=== PATIENT | female | born 1975 | race Caucasian/White ===

== ENCOUNTER 2020-01-08 08:44 | Inpatient (IN) | payer BC, SELFPAY ==
[2020-01-08] VITALS (7 sets, daily range): BP systolic 108–134; BP diastolic 72–88; PULSE 88–103; RESP 18–22; TEMP 36.6–36.9; O2SAT 99–100; BMI 30.8
--- NOTE | ~2020-01-08 | XR_ITS ---
EXAMINATION: XR chest 1V portable INDICATION: Shortness of breath and chest pain TECHNIQUE: Portable AP chest at 1012 hours COMPARISON: None available FINDINGS: There are airspace opacities of the lower lung zones. No pleural effusion or pneumothorax i s identified. The cardiomediastinal silhouette is normal. IMPRESSION: 1. Airspace opacities of the lower lung zones, consistent with pneumonia versus atelectasis. Reviewed, dictated and finalized at location A.
--- NOTE | ~2020-01-08 | US_ITS ---
EXAMINATION: US right upper quadrant DATE: 01/08/2020 13:08 INDICATION: Nausea and vomiting TECHNIQUE: Multiple grayscale and Doppler ultrasound images of the abdomen were obtained. COMPARISON: None FINDINGS: The pancreatic head and body are normal in appearance. The pancreatic tail is not visualized. Visual ized proximal to mid inferior vena cava is normal. Liver has normal echogenicity and contour, with a smooth surface. No liver lesion identified. No intrahepatic biliary duct dilation suspected. Portal v enous flow was seen in the hepatopetal, normal direction and has normal Doppler waveform. The gallbla dder is normal in appearance. There is no cholelithiasis. The common bile duct measures 4 mm, which is normal. Sonographic Fishman sign was reported as negative by the nursing agency manager.Sized portion of the r ight kidney demonstrates normal echogenicity and contour with no hydronephrosis. IMPRESSION: 1. Normal right upper quadrant ultrasound. Reviewed, dictated and finalized at location A.
[2020-01-08 09:03] LABS: Glucose Point of Care > 500 (65-105)
--- NOTE | 2020-01-08 09:09 | ECG_ITS ---
Measurements Intervals [place] Rate: 98 P: 42 ND: 111 QRS: 76 QRSD: 90 T: 48 QT: 365 QTc: 468 Interpretive Statements SINUS RHYTHM WITH SHORT ND INTERVAL BORDERLINE ECG Electronically Signed On 01-08-2020 9:12:06 CDT by Júnior Souza D.O.
[2020-01-08] MEDS: SODIUM CHLORIDE 0.9% IV 1,000 ML 999 ML IV CONT ×3 (09:12→14:09)
[2020-01-08 09:24] LABS: Basophils Absolute Auto 0.1 K/mm3 (0.0-0.1); Basophils Percent Auto 0.4 % (0.2-1.2); Eosinophils Percent Auto 0.1 % (0-4.4); Hematocrit 47.8 % (37.0-47.0); Hemoglobin 15.4 g/dL (12.0-15.0); Immature Granulocyte Absolute 0.36 K/mm3 (0.00-0.031); Immature Granulocyte Percent A 1.4 % (0-0.5); Lymphocytes Absolute Auto 0.91 K/mm3 (0.9-3.2); Lymphocytes Percent Auto 3.6 % (18.3-44.2); Mean Corpuscular HGB Conc 32.2 g/dl (32-36); Mean Corpuscular Hemoglobin 33.5 pg (26-34); Mean Corpuscular Volume 103.9 fl (80-100); Mean Platelet Volume 10.5 fl (7.4-10.4); Monocytes Absolute Auto 1.5 K/mm3 (0.1-0.6); Monocytes Percent Auto 5.7 % (2.6-8.5); Neutrophils Absolute Auto 22.7 K/mm3 (1.3-6.7); Neutrophils Percent Auto 88.8 % (45.5-73.1); Platelet Count Result 364 k/mm3 (150-375); White Blood Count 25.5 K/mm3 (4.5-10.0)
[2020-01-08 09:43] LABS: Albumin Level 5.4 g/dL (3.5-5.1); Alkaline Phosphatase 103 U/L (38-126); Anion Gap 35.4 mmol/L (7-16); Aspartate Amino Transferase 153 U/L (14-36); Bilirubin,Total 1.3 mg/dL (0.2-1.3); Blood Urea Nitrogen 27 mg/dL (7-17); Calcium 9.4 mg/dL (8.4-10.2); Carbon Dioxide 8 mmol/L (22-30); Chloride 94 mmol/L (98-107); Estimated CRCL calculation 47 ml/min; Estimated Glomerular Filt Rate 33; Magnesium 2.4 mg/dL (1.6-2.3); Potassium 5.4 mmol/L (3.4-5.0); Sodium 132 mmol/L (137-145)
[2020-01-08 09:50] LABS: Troponin I < 0.012 ng/mL (0.000-0.034)
[2020-01-08 09:51] LABS: Alveolar/Arterial O2 Gradient 3.2 mmHg; Base Excess ABG -18.9 mEq/l (+/-2.0); Carboxyhemoglobin 0.7 % THb (0-2.0); Fractional Inspired Oxygen 21 %; HCO3 ABG 7.5 mEq/l (22.0-26.0); Methemoglobin ABG 0.2 %THb (0-1.5); Oxygen Content ABG 20.9 %vol (16.0-22.0); Oxygen Saturation ABG 97.5 % (95.0-100.0); Oxyhemoglobin 97.2 % THb (90.0-100.0); PO2 ABG 121.3 mmHg (80.0-100.0); PO2 FiO2 Ratio Arterial Blood 5.78 %; Reduced Hemoglobin 1.9 %THb (0-5.0); Total Hemoglobin 15.2 g/dL (12.0-18.0)
[2020-01-08 09:54] LABS: Device ROOM AIR; PCO2 ABG 21.1 mmHg (35.0-45.0); Site Drawn LEFT BRACHIAL
[2020-01-08] MEDS: ONDANSETRON INJ 4 MG/2 ML VIAL IV PUSH ×2 (09:56→22:22)
[2020-01-08] MEDS: MORPHINE SULFATE 4 MG/ML INJ IV PUSH (09:56)
[2020-01-08 10:03] LABS: Glucose 653 mg/dL (65-105)
--- NOTE | 2020-01-08 10:05 | ED.NAVMDI ---
HPI - Nausea/Vomiting/Diarrhea General Chief complaint: Nausea/Vomiting/Diarrhea Stated complaint: DIABETIC, N/V ACCUCK 600'S Time Seen by Provider: 01/08/20 09:02 History of Present Illness HPI Narrative: Patient is a 44-year-old female who presents ER with nausea and vomiting. Patient reports yesterday she woke up and began having some mid back pain and then as the day progressed she began to develop some central chest pain and additionally nausea and vomiting. Vomiting is continued all night. She reports she feels like she hallucinates. She reports she is seen naked people riding horses but these may have actually been dreams. Spouse does not think she was hallucinating. She reports her daughters have been at her ex-'s house who may have been exposed to COVID and she does not know his test results. Additionally she had a daughter who is exposed to COVID at a place of employment and tested negative subsequently. Patient has been social distancing well until 2 days ago when she went to a barbecue. She has had no sinus congestion/sore throat/productive cough. Patient mildly anxious. Related Data Home Medications Medication Instructions Recorded Confirmed alprazolam HS 01/08/20 citalopram mg HS 01/08/20 insulin lispro See Rx Instructions .ROUTE .COMPLEX 01/08/20 01/08/20 Allergies Allergy/AdvReac Type Severity Reaction Status Date / Time amoxicillin Allergy Unknown Unknown Verified 01/08/20 09:02 Penicillins Allergy Unknown Verified 01/08/20 09:03 codeine AdvReac Itching Verified 01/08/20 09:02 Review of Systems Review of Systems: All systems reviewed & are unremarkable except as noted in HPI and below Constitutional: Constitutional: Denies chills, Denies fever(s) and Denies weakness ENT: Denies nasal congestion and Denies sore throat Cardiovascular: Cardiovascular: Reports chest pain, Denies rapid heart rate and Denies radiating jaw, neck or arm pain Respiratory: Respiratory: Denies cough, Reports dyspnea and Denies wheezing Gastrointestinal: Gastrointestinal: Denies abdominal pain, Denies diarrhea, Reports nausea and Reports vomiting Genitourinary: Genitourinary: Denies nocturia and Denies dysuria [facility] Past Medical History Medical History (Updated 01/08/20 @ 15:26 by Romi Morales NP) Anxiety Ovarian cyst during Type 1 diabetes Surgical History Surgical History (Updated 01/08/20 @ 15:26 by Romi Morales NP) History of section, classical x3 History of oophorectomy removal of cyst during . Social History Social History (Updated 01/08/20 @ 11:51 by Quincy Oliver MD) Smoking status: Never smoker Alcohol intake: current Drinks per week: 5 Substance use: never Substance use type: does not use Gender identity (if verbalized by the patient): Female Sexual Orientation (if Verbalized by the Patient): Straight or Heterosexual Spiritual care concerns: No Comments No family history of coronary disease. Exam Narrative: Exam Narrative: GENERAL: Anxious-appearing, well-nourished, and in no acute distress. HEAD: Normocephalic, atraumatic. ENT: Mucous membranes moist. CHEST: Clear to auscultation. No respiratory distress. HEART: Tachycardic and regular. Normal peripheral pulses. ABDOMEN: Soft, nontender, nondistended. EXTREMITIES: Normal range of motion. No edema. SKIN: Warm, dry, no rash. NEURO: N Alert and oriented x3. PSYCH: Normal mood and affect. Course Course Emergency Course: Discussed case with hospitalist as well as third miller. Admit to the ICU on insulin drip. Antibiotics ordered for possible pneumonia. Patient had a COVID swab performed here today. Troponin negative. EKG with some mild diffuse ST elevation that could represent early repolarization abnormality or pericarditis which is felt less likely. Creatinine elevated consistent with CYRIL from dehydration. Abdomen soft nontender, but given back pain and retching we
[2020-01-08 10:09] LABS: Alanine Aminotransferase 158 U/L (4-35)
[2020-01-08 11:06] LABS: Glucose Point of Care > 500 (65-105)
[2020-01-08 11:14] LABS: Add Urine Microscopic? YES; Appearance Urine Clear (Clear); Bacteria Urine Trace /hpf; Bilirubin Urine Negative (Negative); Blood Urine 1+ (Negative); Color Urine Yellow (Yellow); Glucose Urine UA 3+ mg/dL (Negative); Hyaline Casts Urine 15-19 /lpf; Ketones Urine 2+ mg/dL (Negative); Leukocyte Esterase Ur Negative LEU/UL (Negative); Mucus Urine Rare /lpf; Nitrate Urine Negative (Negative); Protein Urine 1+ mg/dL (Negative); RBC Urine 0-2 /hpf (0-2); Specific Grav Ur 1.026 (1.001-1.035); Squamous Epithelial Cell Urine Occasional /hpf (Few); Urobilinogen Urine Negative mg/dL (<2.0); WBC Urine 0-3 /hpf
[2020-01-08 11:48] LABS: Glucose Point of Care > 500 (65-105)
[2020-01-08] MEDS: INSULIN HUMAN REGULAR (*BKC) 100 UNITS in SODIUM CHLORIDE 0.9% IV 99 ML 8.8 UNITS IV CONT (12:13)
[2020-01-08 13:38] LABS: Glucose Point of Care 476 (65-105)
--- NOTE | 2020-01-08 14:02 | WPDCNINT ---
Assessment and Plan Assessment and plan (1) DKA, type 1: Qualifiers: Diabetes mellitus complication detail: without coma Qualified Code(s): E10.10 - Type 1 diabetes mellitus with ketoacidosis without coma Code(s): E10.10 - Type 1 diabetes mellitus with ketoacidosis without coma Status: Acute Assessment and Plan: patient presented a nausea, vomiting, chest pain, shortness of breath, elevated blood sugars - recently changed her insulin pump site on 01/06/2020 - patient with elevated anion gap metabolic acidosis, hyper glycemia, hyperkalemia - was given 2 L IV fluid bolus in the ED, started on insulin drip DKA protocol. - Will give additional 1 L IV fluid bolus in the ICU. - will check hemoglobin A1c - will transition to long-acting insulin and sliding scale insulin once anion gap closes (2) Elevated LFTs: Code(s): R79.89 - Other specified abnormal findings of blood chemistry Status: Acute Assessment and Plan: elevated LFTs, could be related to dehydration, will continue to monitor - will obtain hepatitis panel - RUQ ultrasound done on 01/08/2020 showed normal right upper quadrant ultrasound (3) Hyperkalemia: Code(s): E87.5 - Hyperkalemia Status: Acute Assessment and Plan: hyperkalemia likely related to metabolic acidosis - repeat BMP shows potassium of 4.2 ( 5.4 on admission) - continue to monitor (4) Chest pain: Qualifiers: Chest pain type: unspecified Qualified Code(s): R07.9 - Chest pain, unspecified Code(s): R07.9 - Chest pain, unspecified Status: Acute Assessment and Plan: patient presented with chest pain and shortness of breath likely related to DKA - 1st set of troponins are negative, will trend troponin levels (5) Suspected 2019 novel coronavirus infection: Code(s): Z20.828 - Contact with and (suspected) exposure to other viral communicable diseases Status: Acute Assessment and Plan: patient's daughter works at [employer] where a number of employees had tested positive, Payne her daughter was tested negative - patient's ex- and his also had some symptoms, her 3 children where at his place, he was tested for code with positive but refuses to inform her of the results - she was also at a [employer] get together on 01/06/2020 where there was no social distancing she is unaware of any COVID-19 positive cases at the [facility]. - SARS-CoV-2 PCR swab was obtained in the ER and pending (6) Leukocytosis: Qualifiers: Leukocytosis type: unspecified Qualified Code(s): D72.829 - Elevated white blood cell count, unspecified Code(s): D72.829 - Elevated white blood cell count, unspecified Status: Acute Assessment and Plan: leukocytosis with WBC count of 25.5, could be related to DKA/reactive - with no fevers - will continue to monitor (7) CYRIL (acute kidney injury): Code(s): N17.9 - Acute kidney failure, unspecified Status: Acute Assessment and Plan: acute kidney injury likely related to DKA, hyperglycemia, glycosuria, hypovolemia, decreased oral intake/dehydration - creatinine on admission was 1.70, after 2 L of normal saline and repeat BMP shows creatinine of 0.9 - continue monitor urine output, renal function electrolytes (8) DVT prophylaxis: Code(s): Z29.9 - Encounter for prophylactic measures, unspecified Status: Acute Assessment and Plan: SCDs Additional Plan discussed with patient updated with her condition and explained to the plan of care. I answered all her questions code status: Full code critical care time spent: 41 minutes Due to a high probability of clinically significant, life threatening deterioration, the patient required my highest level of preparedness to intervene emergently and I personally spent this critical care time directly and personally managing the patient. This critical
[2020-01-08 14:06] LABS: Anion Gap 21.2 mmol/L (7-16); Blood Urea Nitrogen 24 mg/dL (7-17); Calcium 7.3 mg/dL (8.4-10.2); Carbon Dioxide 13 mmol/L (22-30); Chloride 104 mmol/L (98-107); Estimated CRCL calculation 85 ml/min; Estimated Glomerular Filt Rate > 60; Glucose 391 mg/dL (65-105); Potassium 4.2 mmol/L (3.4-5.0); Sodium 134 mmol/L (137-145)
[2020-01-08 14:14] LABS: Glucose Point of Care 440 (65-105)
--- NOTE | 2020-01-08 14:50 | PC.NURSE ---
No family health history that patient is aware of. States both parents are healthy.
[2020-01-08 14:57] LABS: Troponin I < 0.012 ng/mL (0.000-0.034)
--- NOTE | 2020-01-08 15:11 | PM.IMHP ---
H&P: HPI History of Present Illness Date/Time: 01/08/20 15:11 Chief complaint: dka/pneumonia/covid pui Narrative: Jayleen Box is a 44 year old female Who has a a history of diabetes type 1. She typically wears an insulin pump with Humalog. The patient has been a type 1 diabetic for 18 years now. 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 the patient stated that her blood sugars are typically 80s to 100 she has a basal rate and also boluses. She noticed yesterday her blood sugars were elevated andshe tried to inject herself with Humalog subcu. She said she has had nausea vomiting all day yesterday. She felt hot and diaphoretic she had a dry mouth. She felt like she had acid reflux all day yesterday. She had polydipsia and polyuria. The patient has a daughter that works at [employer] and had a closed [employer] down because of the COVID outbreak there. However she tells me that her daughter tested negative. Also recently the father of her children had exposure to COVID would would not tell her the results of the COVID testing. Therefore the patient is unsure of her exposure to COVID. She has not had any sore throat or cough. She has a history of anxiety. She had changed her pump on 01/06/2020 and felt that the pump was working accurately but gave herself subcu junctions to try to get the blood sugars down. Her white count was noted to be 25.5. H&H is 15.4 and 47.8. The patient had the polydipsia and polyuria plus she had been vomiting most likely became dehydrated. Arterial blood gases revealed that the patient had metabolic acidosis. PH is 7.170 CO2 was 21.10 to is 121.3. Her blood sugar was read as 653 and then 391. Her beta hydroxybutyrate acetoacetate was noted to be 11.0. She had 1+ protein and 3+ glucose 2+ ketones in her urine. Her liver enzymes were elevated AST 153 ALT is 158. Magnesium was high at 2.4 she had a normal ultrasound of her upper abdomen. Chest x-ray was read as airspace opacities of the lower lung zones consistent with pneumonia versus atelectasis. Patient was swabbed for covid 19 and started on azithromycin And Rocephin. Anion gap was 17 using [employer]. patient is being admitted for DKA and rule out COVID I have spent approximately 1 hour of intensive care time with the patient. The patient was seen by the safety engineer pressure vessels. She was started on the DKA protocol. The date of service is 01/08/2020 Review of Systems Review of Systems: All systems reviewed & are unremarkable except as noted in HPI and below Constitutional: Constitutional: Reports as per HPI and Reports no additional constitutional complaints Eyes: Eyes: Reports as per HPI and Reports no additional eye complaints ENT: Reports system reviewed and no additional complaints, except as documented and Reports Normal hearing present Cardiovascular: Cardiovascular: Reports no additional cardiovascular complaints Respiratory: Respiratory: Reports no additional respiratory complaints and Reports no additional respiratory complaints Gastrointestinal: Gastrointestinal: Reports as per HPI and Reports no additional gastrointestinal complaints Musculoskeletal: Musculoskeletal: Reports no additional musculoskeletal complaints Integumentary/Breasts: Skin/Breast: Reports system reviewed and no additional complaints, except as docu and Reports as per HPI Neurologic: Reports system reviewed and no additional complaints, except as documented, Reports as per HPI and Reports Normal hearing present Psychiatric: Psychiatric: Reports no additional psychiatric complaints and Reports as per HPI Endocrine: Endocrine: Reports no additional endocrine complaints Hematologic/Lymphatic: Hematologic/Lymphatic: Reports no additional hematologic/lymphatic complaints Allergic/Immunologic: Allergic/Immunologic: Reports no additional allergic/immunologi
[2020-01-08] MEDS: SODIUM CHLORIDE 0.9% IV 1,000 ML 150 ML IV CONT (15:12)
[2020-01-08 15:26] LABS: Glucose Point of Care 366 (65-105)
[2020-01-08 15:33] LABS: Hemoglobin A1C 7.4 % (<5.7)
--- NOTE | 2020-01-08 15:43 | ADMGEN ---
This patient, Jayleen Box, was admitted to Intensive Care Unit-1. Patient oriented to hospital policies and general routines including ID bracelet, bed and alarms, visiting hours, pain management, procedures, bathroom and other care routines, personal items, smoking policy, room service/diet, and visiting hours. Valuables list has been completed. Information on how to activate the Rapid Response Team has been discussed. Patient is encouraged to report perceived risks to care and to ask questions if they do not understand what they are told or what they should do.
[2020-01-08 16:11] LABS: Glucose Point of Care 268 (65-105)
[2020-01-08 16:22] LABS: Hepatitis B Surface Antigen Negative (Negative)
[2020-01-08 16:28] LABS: HAV RESULT Negative (Negative); Hepatitis B Core IgM Result Negative (Negative)
[2020-01-08 16:39] LABS: Hepatitis C Virus Antibody Negative (Negative)
[2020-01-08 17:17] LABS: Glucose Point of Care 226 (65-105)
[2020-01-08] MEDS: KCL 20 MEQ/D5/0.45% SOD CHL 1,000 ML 150 ML IV CONT (18:24)
[2020-01-08 18:32] LABS: Glucose Point of Care 154 (65-105)
[2020-01-08 18:58] LABS: Anion Gap 4.2 mmol/L (7-16); Blood Urea Nitrogen 14 mg/dL (7-17); Calcium 4.3 mg/dL (8.4-10.2); Carbon Dioxide 15 mmol/L (22-30); Chloride 121 mmol/L (98-107); Estimated CRCL calculation 173 ml/min; Estimated Glomerular Filt Rate > 60; Glucose 80 mg/dL (65-105); Potassium 2.2 mmol/L (3.4-5.0); Sodium 138 mmol/L (137-145)
[2020-01-08 19:12] LABS: Glucose Point of Care 115 (65-105)
[2020-01-08] MEDS: KCL 20 MEQ/SW 100 ML 100 ML 50 MEQ IVPB (19:51)
[2020-01-08] MEDS: INSULIN GLARGINE (*BKC) 100 UNITS/ML 40 UNITS SUB-Q (19:52)
[2020-01-08] MEDS: BENZOCAINE/MENTHOL (*BKC) 18 EA LOZENGE 1 LOZENGE PO (19:57)
[2020-01-08] MEDS: ALPRAZolam 0.25 MG TABLET PO (23:04)
[2020-01-08] MEDS: CITALOPRAM HYDROBROMIDE 20 MG TABLET 40 MG PO (23:04)
[2020-01-08 23:23] LABS: Anion Gap 13.8 mmol/L (7-16); Blood Urea Nitrogen 21 mg/dL (7-17); Calcium 7.8 mg/dL (8.4-10.2); Carbon Dioxide 21 mmol/L (22-30); Chloride 101 mmol/L (98-107); Estimated CRCL calculation 105 ml/min; Estimated Glomerular Filt Rate > 60; Glucose 325 mg/dL (65-105); Potassium 4.8 mmol/L (3.4-5.0); Sodium 131 mmol/L (137-145)
[2020-01-09] VITALS (11 sets, daily range): BP systolic 133–165; BP diastolic 72–86; PULSE 75–87; RESP 16–20; TEMP 36.7–37.3; O2SAT 97–100
[2020-01-09] MEDS: INSULIN ASPART (*BKC) 100 UNITS/ML SUB-Q ×5 (00:17→17:07)
--- NOTE | 2020-01-09 02:00 | PC.NURSE ---
COVID swab never received from ER to lab. Unclear to reasons. supervisor engine assembly alerted and re-swabbed STAT at this time.
[2020-01-09 05:06] LABS: Basophils Percent Auto 0.2 % (0.2-1.2); Eosinophils Percent Auto 0.1 % (0-4.4); Hematocrit 37.5 % (37.0-47.0); Hemoglobin 12.7 g/dL (12.0-15.0); Immature Granulocyte Absolute 0.07 K/mm3 (0.00-0.031); Immature Granulocyte Percent A 0.4 % (0-0.5); Lymphocytes Absolute Auto 1.66 K/mm3 (0.9-3.2); Lymphocytes Percent Auto 9.4 % (18.3-44.2); Mean Corpuscular HGB Conc 33.9 g/dl (32-36); Mean Corpuscular Hemoglobin 33.2 pg (26-34); Mean Corpuscular Volume 98.2 fl (80-100); Mean Platelet Volume 10.3 fl (7.4-10.4); Monocytes Absolute Auto 1.3 K/mm3 (0.1-0.6); Monocytes Percent Auto 7.6 % (2.6-8.5); Neutrophils Absolute Auto 14.6 K/mm3 (1.3-6.7); Neutrophils Percent Auto 82.3 % (45.5-73.1); Platelet Count Result 259 k/mm3 (150-375); Red Blood Count 3.82 M/mm3 (4.2-5.4); Red Cell Distribution Width 11.9 % (11.5-14.5); White Blood Count 17.7 K/mm3 (4.5-10.0)
[2020-01-09 05:59] LABS: Anion Gap 15.3 mmol/L (7-16); Blood Urea Nitrogen 18 mg/dL (7-17); CRP 3.3 mg/dL (<1.0); Calcium 8.2 mg/dL (8.4-10.2); Carbon Dioxide 20 mmol/L (22-30); Chloride 101 mmol/L (98-107); Estimated CRCL calculation 106 ml/min; Estimated Glomerular Filt Rate > 60; Glucose 303 mg/dL (65-105); Lipase 88 U/L (23-300); Magnesium 2.3 mg/dL (1.6-2.3); Phosphorus 1.5 mg/dL (2.5-4.5); Potassium 4.3 mmol/L (3.4-5.0); Sodium 132 mmol/L (137-145)
[2020-01-09 07:45] LABS: Alanine Aminotransferase 92 U/L (4-35); Albumin Level 3.6 g/dL (3.5-5.1); Alkaline Phosphatase 70 U/L (38-126); Aspartate Amino Transferase 53 U/L (14-36); Bilirubin,Total 0.8 mg/dL (0.2-1.3)
[2020-01-09 08:11] LABS: Glucose Point of Care 256 (65-105)
[2020-01-09 12:25] LABS: Glucose Point of Care 285 (65-105)
--- NOTE | 2020-01-09 13:12 | WPDINTPN ---
Progress Note: A&P Assessment and Plan (1) DKA, type 1: Qualifiers: Diabetes mellitus complication detail: without coma Qualified Code(s): E10.10 - Type 1 diabetes mellitus with ketoacidosis without coma Code(s): E10.10 - Type 1 diabetes mellitus with ketoacidosis without coma Status: Acute Assessment and Plan: patient presented a nausea, vomiting, chest pain, shortness of breath, elevated blood sugars - recently changed her insulin pump site on 01/06/2020 - patient with elevated anion gap metabolic acidosis, hyper glycemia, hyperkalemia - patient received adequate IV fluids, on insulin drip for DKA but that has been transitioned to long-acting insulin Lantus and sliding scale insulin with - hemoglobin A1C is 7.4 this admission - continue to monitor blood sugars closely, patient started on diabetic diet (2) Elevated LFTs: Code(s): R79.89 - Other specified abnormal findings of blood chemistry Status: Acute Assessment and Plan: elevated LFTs on admission, could be related to dehydration, will continue to monitor - LFTs trending down this morning - hepatitis panel is negative - RUQ ultrasound done on 01/08/2020 showed normal right upper quadrant ultrasound (3) Hyperkalemia: Code(s): E87.5 - Hyperkalemia Status: Acute Assessment and Plan: RESOLVED: hyperkalemia likely related to metabolic acidosis - repeat BMP shows potassium of 4.2 ( 5.4 on admission) - continue to monitor (4) Chest pain: Qualifiers: Chest pain type: unspecified Qualified Code(s): R07.9 - Chest pain, unspecified Code(s): R07.9 - Chest pain, unspecified Status: Acute Assessment and Plan: RESOLVED: patient presented with chest pain and shortness of breath likely related to DKA - troponins negative x2 - chest pain has resolved this morning (5) Suspected 2019 novel coronavirus infection: Code(s): Z20.828 - Contact with and (suspected) exposure to other viral communicable diseases Status: Acute Assessment and Plan: patient's daughter works at [employer] where a number of employees had tested positive, Payne her daughter was tested negative - patient's ex- and his also had some symptoms, her 3 children where at his place, he was tested for code with positive but refuses to inform her of the results - she was also at a [employer] together on 01/06/2020 where there was no social distancing she is unaware of any COVID-19 positive cases at the [facility]. - SARS-CoV-2 PCR swab was obtained in the ER and pending (6) Leukocytosis: Qualifiers: Leukocytosis type: unspecified Qualified Code(s): D72.829 - Elevated white blood cell count, unspecified Code(s): D72.829 - Elevated white blood cell count, unspecified Status: Acute Assessment and Plan: leukocytosis with WBC count of 25.5, could be related to DKA/reactive - with no fevers - leukocytosis trending down, will continue to monitor (7) CYRIL (acute kidney injury): Code(s): N17.9 - Acute kidney failure, unspecified Status: Acute Assessment and Plan: acute kidney injury likely related to DKA, hyperglycemia, glycosuria, hypovolemia, decreased oral intake/dehydration - creatinine on admission was 1.70, patient received adequate fluids in the ED as well as in the ICU - creatinine this morning is 0.4 - continue monitor urine output, renal function electrolytes (8) DVT prophylaxis: Code(s): Z29.9 - Encounter for prophylactic measures, unspecified Status: Acute Assessment and Plan: SCDs Additional Plan discussed with patient updated with her condition and explained to the plan of care. I answered all her questions code status: Full code critical care time spent: 33 minutes Due to a high probability of clinically significant, life threatening deterioration, the patient required my highe
[2020-01-09 15:07] LABS: SARS-CoV-2 RNA PCR Negative
[2020-01-09 15:39] LABS: SARS-CoV-2 RNA PCR Negative
[2020-01-09 17:11] LABS: Glucose Point of Care 280 (65-105)
--- NOTE | 2020-01-09 18:00 | PC.NURSE ---
Transfer from ICU to room 320. Pt arrived to floor by wheel chair. A/Ox3
--- NOTE | 2020-01-09 18:08 | PC.NURSE ---
This patient, Jayleen Box, was transferred to [facility] on 01/09/20 at 1755. Personal belongings sent with patient. Report given to [Delio DONAHUE]. Appropriate documentation sent with patient.
[2020-01-09] MEDS: CITALOPRAM HYDROBROMIDE 20 MG TABLET 40 MG PO (20:38)
[2020-01-09] MEDS: ALPRAZolam 0.25 MG TABLET PO (20:38)
[2020-01-09 21:21] LABS: Glucose Point of Care 226 (65-105)
[2020-01-09] MEDS: INSULIN GLARGINE (*BKC) 100 UNITS/ML 10 UNITS SUB-Q (23:23)
[2020-01-10 05:12] LABS: Glucose Point of Care 308 (65-105)
[2020-01-10] MEDS: INSULIN ASPART (*BKC) 100 UNITS/ML 6 UNITS SUB-Q (05:57)
[2020-01-10 06:00] VITALS: BP 141/84; PULSE 66; RESP 16; TEMP 36.7; O2SAT 98
[2020-01-10 06:04] LABS: Basophils Percent Auto 0.4 % (0.2-1.2); Eosinophils Percent Auto 0.2 % (0-4.4); Hemoglobin 13.3 g/dL (12.0-15.0); Immature Granulocyte Absolute 0.02 K/mm3 (0.00-0.031); Immature Granulocyte Percent A 0.2 % (0-0.5); Lymphocytes Absolute Auto 1.91 K/mm3 (0.9-3.2); Lymphocytes Percent Auto 23.1 % (18.3-44.2); Mean Corpuscular HGB Conc 34.1 g/dl (32-36); Mean Corpuscular Hemoglobin 33.4 pg (26-34); Mean Platelet Volume 10.2 fl (7.4-10.4); Monocytes Absolute Auto 0.7 K/mm3 (0.1-0.6); Neutrophils Absolute Auto 5.6 K/mm3 (1.3-6.7); Neutrophils Percent Auto 68.1 % (45.5-73.1); Platelet Count Result 227 k/mm3 (150-375); Red Blood Count 3.98 M/mm3 (4.2-5.4); Red Cell Distribution Width 11.9 % (11.5-14.5); White Blood Count 8.3 K/mm3 (4.5-10.0)
[2020-01-10 06:48] LABS: Alanine Aminotransferase 84 U/L (4-35); Albumin Level 3.8 g/dL (3.5-5.1); Alkaline Phosphatase 58 U/L (38-126); Anion Gap 13.8 mmol/L (7-16); Aspartate Amino Transferase 70 U/L (14-36); Bilirubin,Total 1.2 mg/dL (0.2-1.3); Blood Urea Nitrogen 13 mg/dL (7-17); Calcium 8.3 mg/dL (8.4-10.2); Carbon Dioxide 27 mmol/L (22-30); Chloride 93 mmol/L (98-107); Estimated CRCL calculation 122 ml/min; Estimated Glomerular Filt Rate > 60; Glucose 290 mg/dL (65-105); Magnesium 2.1 mg/dL (1.6-2.3); Potassium 3.8 mmol/L (3.4-5.0); Sodium 130 mmol/L (137-145)
[2020-01-10 08:00] VITALS: PULSE 66; RESP 16; O2SAT 98
[2020-01-10] MEDS: CALCIUM CARBONATE (TUMS) 500 MG (200 MG ELEMENTAL) PO (08:26)
[2020-01-10] MEDS: FAMOTIDINE 20 MG/2 ML VIAL IV PUSH (08:27)
[2020-01-10 08:41] LABS: Glucose Point of Care 237 (65-105)
[2020-01-10] MEDS: POTASSIUM CHLORIDE 20 MEQ TABLET 40 MEQ PO (10:49)
--- NOTE | 2020-01-10 13:38 | PM.DS ---
DS: Admitting Diagnosis Admitting Diagnosis Admitting Diagnosis: Type 1 diabetes mellitus with ketoacidosis without coma DS: Discharge Diagnosis Discharge Diagnosis (1) DKA, type 1: Qualifiers: Diabetes mellitus complication detail: without coma Qualified Code(s): E10.10 - Type 1 diabetes mellitus with ketoacidosis without coma Code(s): E10.10 - Type 1 diabetes mellitus with ketoacidosis without coma Status: Acute Assessment and Plan: the patient took her insulin pump off and sent home with her . She is type 1 diabetic for at least the last 18 years. She does see an cake washer. Will waiting for the A1c to be resulted. Patient is on the DKA protocol it looks like her anion gap was between 17 and 18. Her the patient attempted to give herself NovoLog which did not correct blood sugars at home. She was given 2 L of IV fluid bolus in the emergency room and is on insulin drip per DKA protocol at this time. She is admitted to the ICU in the bottling line operator has seen and the patient. We will give the patient some Lantus when she is off of the insulin pump Foner anion gap closes. And will do sliding scale insulin. Her ABG showed metabolic acidosis. Cluster B have is elevated she has anion gap. Consult dietary educator. (2) CYRIL (acute kidney injury): Code(s): N17.9 - Acute kidney failure, unspecified Status: Acute Assessment and Plan: Patient stated she has not had any prior kidney problems with her diabetes. Most likely is due to the dehydration. Her H&H was elevated and her creatinine 1.7. Will continue to hydrate the patient recheck her BMPs every 4 hours with the DKA protocol. (3) Suspected 2019 novel coronavirus infection: Code(s): Z20.828 - Contact with and (suspected) exposure to other viral communicable diseases Status: Acute Assessment and Plan: She may have gotten exposure to COVID. But she is not having any symptoms at this time. She is in isolation. At she was started on a Zithromax and Rocephin for possibility of pneumonia. (4) Anxiety: Code(s): F41.9 - Anxiety disorder, unspecified Status: Chronic Assessment and Plan: Continue with Her home medications when she is no longer NPO. (5) Leukocytosis: Qualifiers: Leukocytosis type: unspecified Qualified Code(s): D72.829 - Elevated white blood cell count, unspecified Code(s): D72.829 - Elevated white blood cell count, unspecified Status: Acute Assessment and Plan: Could be stress reactive. Continue to monitor. (6) Hyperkalemia: Code(s): E87.5 - Hyperkalemia Status: Acute Assessment and Plan: Most likely due to the metabolic acidosis. DS: Summary Hospital Course Reason for hospitalization: Chief complaint: dka/pneumonia/covid pui Narrative: Jayleen Box is a 44 year old female Who has a a history of diabetes type 1. She typically wears an insulin pump with Humalog. The patient has been a type 1 diabetic for 18 years now. 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 the patient stated that her blood sugars are typically 80s to 100 she has a basal rate and also boluses. She noticed yesterday her blood sugars were elevated andshe tried to inject herself with Humalog subcu. She said she has had nausea vomiting all day yesterday. She felt hot and diaphoretic she had a dry mouth. She felt like she had acid reflux all day yesterday. She had polydipsia and polyuria. The patient has a daughter that works at [employer] and had a closed [employer] down because of the COVID outbreak there. However she tells me that her daughter tested negative. Also recently the father of her children had exposure to COVID would would not tell her the results of the COVID testing. Therefore the patient is unsure of
--- NOTE | 2020-01-10 13:45 | PC.NURSE ---
Was notified by MILADIS (Lakesha Lipscomb)that when she went to do the accucheck for 1200 the pt said she doesnt need it done.This was because she had already administered her own insulin. Her had brought her medications.Pt said she was told by the doctor she was being discharged today. I did confirm this with Dr. Hawkins.
[2020-01-10 14:00] VITALS: BP 151/86; PULSE 73; RESP 18; TEMP 36.3; O2SAT 98
== END 2020-01-10 14:49 | disposition home or self-care (01) | DRG 638 ==
LOC: ANHED 11:55 → ANHICU 23:27 → ANH3MEDSUR 01-10 10:10 → ANHICU 01-12 14:27
PROVIDERS: Internal Medicine; Nurse Practitioner; Admitting Provider Internal Medicine; Emergency Provider Emergency Medicine; Visit Provider Family Medicine
DX: E10.10 Type 1 diabetes mellitus with ketoacidosis without coma (principal); N17.9 Acute kidney failure, unspecified; Z20.828 Contact with and (suspected) exposure to other viral communicable diseases; F41.9 Anxiety disorder, unspecified; D72.829 Elevated white blood cell count, unspecified; E86.0 Dehydration; E87.5 Hyperkalemia; R79.89 Other specified abnormal findings of blood chemistry; Z79.4 Long term (current) use of insulin; Z96.41 Presence of insulin pump (external) (internal)
CPT/HCPCS: 36415; 36600; 71045; 76705; 80048; 80053; 80074; 80076; 81001; 81025; 82010; 82375; 82728; 82805; 82948; 83036; 83050; 83690; 83735; 84100; 84443; 84484; 85025; 86140; 87040; 87076; 87081; 87635; 87880; 93005; 96361; 96374; 96375; 99285; A9270; C9803; J0456; J0696; J1815; J2270; J2405; J3480; J7030; U0003

== ENCOUNTER → 2022-03-30 16:25 | Outpatient (CLI) | payer BC, SELFPAY ==
--- NOTE | ~2022-03-30 | MM_ITS ---
EXAMINATION: MM screening [facility] BI w garret HISTORY: Screening mammogram TECHNIQUE: Craniocaudal and mediolateral oblique 3-D tomosynthesis images were obtained and synthetic 2-D images were generated. CAD analysis was submitted and interpreted. COMPARISON: 11/24/2018, 07/31/2014 BREAST PARENCHYMAL COMPOSITION: The breasts are heterogeneously dense, which may obscure small masses . FINDINGS: RIGHT BREAST: An asymmetry is present in the middle third of the inner breast 8 cm from the nipple on the craniocaudal view. LEFT BREAST: No suspicious mass, calcification, or architectural distortion are identified to suggest malignancy. There has been no suspicious interval change. IMPRESSION: 1. Left breast asymmetry on the craniocaudal view. 2. Additional mammographic views and possible breast ultrasound are recommended. BI-RADS Category 0: Incomplete: Needs additional imaging evaluation. Reviewed, dictated and finalized at location A. IMPRESSION: 1. Left breast asymmetry on the craniocaudal view. 2. Additional mammographic views and possible breast ultrasound are recommended . BI-RADS Category 0: Incomplete: Needs additional imaging evaluation.
== END ==
PROVIDERS: PCP Nurse Practitioner Obstetrics & Gynecology; Visit Provider Nurse Practitioner Obstetrics & Gynecology
DX: Z12.31 Encounter for screening mammogram for malignant neoplasm of breast (principal); R92.8 Other abnormal and inconclusive findings on diagnostic imaging of breast
CPT/HCPCS: 77063; 77067

== ENCOUNTER → 2022-04-03 08:36 | Outpatient (CLI) | payer BC, SELFPAY ==
--- NOTE | ~2022-04-03 | MMUS_ITS ---
EXAMINATION: MM diagnostic qiana RT w garret, US breast RT limited HISTORY: Right breast asymmetry on screening mammogram TECHNIQUE: Additional 3-D tomosynthesis images of the right breast were performed and synthetic 2-D i mages were generated. CAD analysis was submitted and interpreted. High resolution limited right breas t ultrasound was performed. COMPARISON: 03/30/2022, 12/03/2017, 07/31/2014, 05/17/2013 FINDINGS: MAMMOGRAPHIC FINDINGS: There is a return to baseline fibroglandular appearance with spot compression of the right breast in the area questioned on screening mammogram. ULTRASOUND: There is a 6 mm x 3 mm oval, circumscribed, parallel, hypoechoic mass at the 4:00 location 4 cm from the nipple with no posterior features or internal vascularity. IMPRESSION: 1. Probably benign right breast mass. 2. Recommend 6 month follow-up right diagnostic mammogram and ultrasound. BI-RADS category 3, probably benign findings. Reviewed, dictated and finalized at location A. IMPRESSION: 1. Probably benign right breast mass. 2. Recommend 6 month follow-up right diagnostic mammogram and ultrasound. BI-RADS category 3, probably benign findings.
== END ==
PROVIDERS: PCP Nurse Practitioner Obstetrics & Gynecology; Visit Provider Nurse Practitioner Obstetrics & Gynecology
DX: R92.8 Other abnormal and inconclusive findings on diagnostic imaging of breast (principal)
CPT/HCPCS: 76642; 77061; 77065; G0279

== ENCOUNTER 2023-05-06 17:07 | Emergency (ER) | payer BC, SELFPAY ==
[2023-05-06] VITALS (12 sets, daily range): BP systolic 147–183; BP diastolic 89–96; PULSE 67–81; RESP 14–21; TEMP 36.8; O2SAT 97–100
--- NOTE | ~2023-05-06 | XR_ITS ---
EXAMINATION: XR chest 2V DATE: 05/06/2023 17:38 INDICATION: Chest pain and left-sided arm numbness. TECHNIQUE: PA and lateral views of the chest were obtained. COMPARISON: Chest radiograph dated 01/08/2020 FINDINGS: The lungs are clear with no focal airspace opacities, pulmonary edema, pleural effusion or pneumothor ax. The cardiomediastinal silhouette is normal. Diabetes monitor projects over one of the upper arms on the lateral projection. Moderate thoracic spondylosis. IMPRESSION: 1. No acute cardiopulmonary disease. Reviewed, dictated and finalized at location A. LOPMENT EDUCATOR
--- NOTE | 2023-05-06 17:08 | ECG_ITS ---
Measurements Intervals [place] Rate: 74 P: 62 [place]: 140 QRS: 72 QRSD: 78 T: 27 QT: 417 QTc: 465 Interpretive Statements SINUS RHYTHM FREQUENT VENTRICULAR PREMATURE COMPLEXES POSSIBLE LEFT ATRIAL ENLARGEMENT BORDERLINE ST-T WAVE ABNORMALITY- ANTEROLAT/INF LEADS ABNORMAL ECG NO PREVIOUS ECG AVAILABLE FOR COMPARISON Electronically Signed On 05-06-2023 20:00:15 NATURAL GAS BASIS TRADER by Júnior Souza D.O.
[2023-05-06 17:37] LABS: Basophils Absolute Auto 0.1 K/mm3 (0.0-0.1); Basophils Percent Auto 1.1 % (0.2-1.2); Eosinophils Absolute Auto 0.3 K/mm3 (0-0.3); Eosinophils Percent Auto 4.2 % (0-4.4); Hematocrit 40.5 % (37.0-47.0); Hemoglobin 13.5 g/dL (12.0-15.0); Immature Granulocyte Absolute 0.02 K/mm3 (0.00-0.031); Immature Granulocyte Percent A 0.3 % (0-0.5); Lymphocytes Absolute Auto 3.07 K/mm3 (0.9-3.2); Lymphocytes Percent Auto 40.4 % (18.3-44.2); Mean Corpuscular HGB Conc 33.3 g/dl (32-36); Mean Corpuscular Hemoglobin 31.8 pg (26-34); Mean Corpuscular Volume 95.3 fl (80-100); Mean Platelet Volume 9.7 fl (7.4-10.4); Monocytes Absolute Auto 0.6 K/mm3 (0.1-0.6); Monocytes Percent Auto 8.3 % (2.6-8.5); Neutrophils Absolute Auto 3.5 K/mm3 (1.3-6.7); Neutrophils Percent Auto 45.7 % (45.5-73.1); Platelet Count Result 245 k/mm3 (150-375); Red Blood Count 4.25 M/mm3 (4.2-5.4); Red Cell Distribution Width 11.9 % (11.5-14.5); White Blood Count 7.6 K/mm3 (4.5-10.0)
[2023-05-06 17:41] LABS: Alanine Aminotransferase 38 U/L (6-35); Albumin Level 5.1 g/dL (3.5-5.1); Alkaline Phosphatase 93 U/L (38-126); Anion Gap 12 mmol/L (8-16); Aspartate Amino Transferase 44 U/L (14-36); Bilirubin,Total 0.9 mg/dL (0.2-1.3); Blood Urea Nitrogen 17 mg/dL (7-17); Calcium 10.5 mg/dL (8.4-10.2); Carbon Dioxide 27 mmol/L (22-30); Chloride 97 mmol/L (98-107); Estimated CRCL calculation 86 ml/min; Estimated Glomerular Filt Rate > 60; Glucose 145 mg/dL (65-110); Lipase 64 U/L (23-300); Potassium 4.1 mmol/L (3.4-5.0); Sodium 136 mmol/L (137-145)
[2023-05-06 17:45] LABS: INR 0.9; Prothrombin Time 12.6 Seconds (11.1-14.7)
[2023-05-06 17:53] LABS: Troponin I < 0.012 ng/mL (0.000-0.034)
--- NOTE | 2023-05-06 18:05 | ED.CHESTPAIN ---
HPI - Chest Pain General Chief Complaint: Chest Pain Stated Complaint: HIGH BP, LEFT ARM/NECK NUMBNESS, CP Time Seen by Provider: 05/06/23 18:05 Source: patient Mode of arrival: ambulatory Limitations: no limitations History of Present Illness HPI narrative: PATIENT IS 47 YEARS OLD WHITE FEMALE NERVE HERSELF TO THE EMERGENCY ROOM COMPLAINING OF FLUTTERING FEELING IN THE CHEST FOR THE LAST 2-3 WEEKS, IT GET BETTER WITH COUGHING. WITH INTERMITTENT LEFT-SIDED CHEST PAIN. PATIENT REPORTS INTERMITTENT NUMBNESS AT THE LEFT NECK AND LEFT UPPER EXTREMITY. SHE DENIES AGGRAVATING OR RELIEVING FACTORS. PATIENT REPORTED THAT BLOOD VISIBLE BUSTED IT IN HER EYES CAUSING REDNESS WHICH COMES AND GOES. PATIENT IS AND HAD QUITE A BIT OF STRESS EVENTS WITH HER EX- 2 WEEKS AGO. PATIENT USED TO BE ON CITALOPRAM AND ALPRAZOLAM FOR ANXIETY AND DEPRESSION WHICH IS STOPPED 1.5 YEAR AGO. HISTORY OF DEPRESSION, HYPERTENSION. SHE TAKES ANTI-LIPID MEDICATION NOT BECAUSE OF HYPERLIPIDEMIA. PATIENT DRINKS ALCOHOL DAILY DENIED ANY SMOKING OR MARIJUANA USE, DENIED FAMILY HISTORY OF CORONARY ARTERY DISEASE. Related Data Home Medications Medication Instructions Recorded Confirmed alprazolam 0.25 mg tablet 0.25 mg PO HS 01/08/20 01/08/20 citalopram 40 mg tablet 40 mg PO HS 01/08/20 01/08/20 insulin lispro 100 unit/mL See Rx Instructions .Route .COMPLEX 01/08/20 01/08/20 subcutaneous pen Allergies Allergy/AdvReac Type Severity Reaction Status Date / Time amoxicillin Allergy Unknown Unknown Verified 05/06/23 18:09 Penicillins Allergy Unknown Verified 05/06/23 18:09 codeine AdvReac Itching Verified 05/06/23 18:09 Review of Systems Review of Systems: All systems reviewed & are unremarkable except as noted in HPI and below PMFSH Past Medical History Medical History Anxiety Ovarian cyst during Type 1 diabetes Surgical History Surgical History History of section, classical x3 History of oophorectomy removal of cyst during . Social History Social History Smoking status: Never smoker Alcohol intake: current Drinks per week: 5 Substance use: never Substance use type: does not use Gender identity (if verbalized by the patient): Female Sexual Orientation (if Verbalized by the Patient): Straight or Heterosexual Spiritual care concerns: No Exam Narrative: GENERAL APPEARANCE: WELL-DEVELOPED, WELL-NOURISHED , INTERMITTENT SIGNED SKIN: NORMAL COLOR HEAD: NORMOCEPHALIC, NONTRAUMATIC EYES: CLEAR CONJUNCTIVA ENT: OROPHARYNX NORMAL, EARS NORMAL, NOSE NORMAL NECK: SUPPLE, NONTENDER CHEST AND RESPIRATORY: AIRWAY PATENT, NO RESPIRATORY DISTRESS, NO ACCESSORY MUSCLE USE HEART: REGULAR RATE/RHYTHM ABDOMEN: SOFT, NONTENDER, NO ORGANOMEGALY, QUIET BOWEL SOUNDS VASCULAR: NORMAL PERIPHERAL PULSES, NORMAL CAPILLARY REFILL. MUSCULOSKELETAL: NORMAL RANGE OF MOTION, NONTENDER BACK NEUROLOGIC: ALERT AND ORIENTED ?3, TELEVISION REPAIR TEACHER IS NORMAL TESTED, NO GROSS MOTOR DEFICIT Course Vital Signs Vital signs: Vital Signs Temperature 36.8 C 05/06/23 17:12 Pulse Rate 81 05/06/23 17:12 Respiratory Rate 17 05/06/23 17:12 Blood Pressure 183/96 H 05/06/23 17:12 Pulse Oximetry 100 05/06/23 17:12 Oxygen Delivery Room Air 05/06/23 17:12 Temperature 36.8 C 05/06/23 17:12 Pulse Rate 81 05/06/23 17:12 Respiratory Rate 17 05/06/23 17:12 Blood Pressure 183/96 H 05/06/23 17:12 Pulse Oximetry 100 05/06/23 17:12 Oxygen Delivery Room Air 05/06/23
--- NOTE | 2023-05-06 19:04 | ECG_ITS ---
Measurements Intervals [place] Rate: 69 P: 25 [place]: 141 QRS: 69 QRSD: 80 T: 29 QT: 420 QTc: 451 Interpretive Statements SINUS RHYTHM NORMAL ECG COMPARED TO ECG 05/06/2023 17:14:15 PREMATURE VENTRICULAR COMPLEXES RESOLVED Electronically Signed On 05-06-2023 20:02:17 EDGER FEEDER by Júnior Souza D.O.
[2023-05-06] MEDS: LORazepam (*CRX) 0.5 MG TABLET 1 MG PO (19:23)
[2023-05-06 20:39] LABS: Troponin I < 0.012 ng/mL (0.000-0.034)
== END 2023-05-06 21:10 | disposition home or self-care (01) ==
PROVIDERS: Emergency Provider Emergency Medicine; PCP Nurse Practitioner Obstetrics & Gynecology
DX: R00.2 Palpitations (principal); R07.9 Chest pain, unspecified; R20.0 Anesthesia of skin; E10.9 Type 1 diabetes mellitus without complications; I10 Essential (primary) hypertension; Z79.899 Other long term (current) drug therapy
CPT/HCPCS: 36415; 71046; 80053; 83690; 84484; 85025; 85610; 85730; 93005; 99284; A9270

== ENCOUNTER 2023-12-06 14:48 | Outpatient (CLI) | payer BC, SELFPAY ==
--- NOTE | ~2023-12-06 | MM_ITS ---
EXAMINATION: MM screening qiana BI w garret HISTORY: Screening mammogram TECHNIQUE: Craniocaudal and mediolateral oblique 3-D tomosynthesis images were obtained and synthetic 2-D images were generated. CAD analysis was submitted and interpreted. COMPARISON: 03/30/2022, 12/03/2017 BREAST PARENCHYMAL COMPOSITION:Dense: The breasts are heterogeneously dense, which may obscure small masses. FINDINGS: No suspicious mass, calcification, or architectural distortion are identified in either riky ast to suggest malignancy. There has been no suspicious interval change. IMPRESSION: No mammographic evidence of malignancy. Recommend routine screening mammography in one year. BI-RADS Category 1: Negative Reviewed, dictated and finalized at location .
== END 2023-12-06 14:49 ==
LOC: MICIMG 14:49
PROVIDERS: PCP Obstetrics & Gynecology; Visit Provider Family Medicine Sports Medicine
DX: Z12.31 Encounter for screening mammogram for malignant neoplasm of breast (principal)
CPT/HCPCS: 77063; 77067

== ENCOUNTER 2024-09-25 08:35 | Outpatient (CLI) | payer BC, SELFPAY ==
--- NOTE | ~2024-09-25 | MMUS_ITS ---
EXAMINATION: MM diagnostic qiana BI w garret, US breast BI limited HISTORY: Palpable abnormalities within the upper outer quadrants of both breasts, felt by patient's c linician, however patient is unable to locate for designation on today's study TECHNIQUE: Additional 3-D tomosynthesis images of the bilateral breasts were performed and synthetic 2-D images were generated. CAD analysis was submitted and interpreted. High resolution limited bilateral breast ultrasound was performed. COMPARISON: 12/06/2023 and dating back to 11/27/2011 BREAST PARENCHYMAL COMPOSITION:Dense: The breasts are heterogeneously dense, which may obscure small masses. FINDINGS: MAMMOGRAPHIC FINDINGS: Punctate calcifications detected bilaterally, stable and benign in appearance, dermal in origin. No suspicious microcalcifications, architectural distortion or discrete masses are identified. ULTRASOUND: Sonographic evaluation of the upper outer quadrant of the bilateral breast tissue was performed asses sing grayscale appearance and color Doppler flow. Within the area of clinical concern, ultrasound demonstrates benign fibroglandular elements without a cystic or solid lesion of concern. IMPRESSION: No mammographic/tomographic or sonographic evidence to suggest the presence of malignancy. Resumption of yearly mammography is recommended. BI-RADS Category 2: Benign finding(s). Reviewed, dictated and finalized at location A. IMPRESSION: No mammographic/tomographic or sonographic evidence to suggest the presence of malignancy. Resumption of yearly mammography is recommended. BI-RADS Category 2: Benign finding(s).
== END 2024-09-25 08:36 | disposition home or self-care (01) ==
LOC: MICIMG 08:36
PROVIDERS: PCP Nurse Practitioner; Visit Provider Nurse Practitioner
DX: N63.11 Unspecified lump in the right breast, upper outer quadrant (principal); N63.21 Unspecified lump in the left breast, upper outer quadrant
CPT/HCPCS: 76642; 77062; 77066; G0279

== ENCOUNTER 2024-11-10 10:51 | Outpatient (CLI) | payer BC, SELFPAY ==
--- OUTSIDE RECORDS SUMMARY | 2024-11-10 10:55 | XMS_ITS | Encounter Summary ---
Author Organization [facility] Healthcare Address [address] [place] [address] Care Team Providers Care Shell Freezing Machine Operator Name Role Phone Kaushal Lemus MD Primary Care Provider +- [phone] Reason for Visit * Diagnostic Imaging (Routine) - Closed Specialty Diagnoses / Procedures Referred By Manuel england Referred To Contact Procedures Breast Imaging US Outside Reference Nayely Vyas NP Phone: tel: fax: Referral ID Status Reason Start Date Expiration Date Visits Re quested Visits Authorized [id number] Closed 06/03/2022 07/03/2023 1 1 Encounter Details Date Type Department Care Team (Late st Contact Info) Description 06/27/2013 12:05 AM FOOD AND BEVERAGE COORDINATOR Hospital Encounter [facility] [address] [place] [address] Social History Tobacco Use Types Packs/Day Years Used Date Smoking Tobacco: Never Smokeless Tobacco: Never Alcohol Use Standard Drinks/Week Comments Yes 0 (1 standard drink = 0.6 oz pur e alcohol) AUDIT-C Answer Date Recorded Q1: How often do you have a drink containing alcohol? Never 06/26/2024 Q2: How many drinks containi ng alcohol do you have on a typical day when you are drinking? Patient does not drink Q3: How often do you have si x or more drinks on one occasion? 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 Never 06/26/2024 1:11 PM Gal Chan MA Q2: How many drinks containing alcohol do you have on a typical day when you are drinking? Patient does not drink 06/26/2024 1:11 PM Gal Chan MA Q3: How often do you have six or more drinks on one occasion? Never 06/26/2024 1:11 PM FOOD AND BEVERAGE COORDINATOR Gal Bethea MA documented as of this encounter Plan of Treatment Not on file documented as of this encounter Procedures Procedure Name Priority Date/Time Associated Diagnosis Comments BREAST IMAGING US OUTSIDE REFERENCE Routine 06/27/2013 12:05 AM FOOD AND BEVERAGE COORDINATOR documented in this encounter Results * Breast Imaging US Outside Reference (06/27/2013 12:05 AM FOOD AND BEVERAGE COORDINATOR) Impressions [facility] - 06/03/2022 9:22 AM FOOD AND BEVERAGE COORDINATOR These images are for Reference purposes only and have not been reviewed by [facility]. There will be no report generated by a [facility] Radiologist. Narrative [facility] - 06/03/2022 9:22 AM FOOD AND BEVERAGE COORDINATOR EXAMINATION: Images For Reference Purposes Only us Nayely Vyas LOSS PREVENTION AND SAFETY MANAGER IMG MAMMO PROCEDURES Fin al Result [facility] documented in this encounter Visit Diagnoses Not on filedocumented in this encounter Care Teams Shell Freezing Machine Operator Relationship Specialty Start Date End Date Kaushal Lemus MD PCP - General 09/17/11 04/22/14 documented as of this encounter
--- OUTSIDE RECORDS SUMMARY | 2024-11-10 10:55 | XMS_ITS | Encounter Summary ---
Author Organization [facility] Healthcare Address [address] [place] [address] Care Team Providers Care Auto Radiator Mechanic Name Role Phone Kaushal Lemus MD Primary Care Provider +- [phone] Reason for Visit * Diagnostic Imaging (Routine) - Closed Specialty Diagnoses / Procedures Referred By Manuel england Referred To Contact Procedures Breast Imaging Diagnostic Outside Reference Nayely Vyas NP Phone: tel: fax: Referral ID Status Reason Start Date Expiration Date Visits Re quested Visits Authorized [id number] Closed 06/03/2022 07/03/2023 1 1 Encounter Details Date Type Department Care Team (Late st Contact Info) Description 07/31/2014 12:05 AM ALTERATIONS WORKROOM CLERK Hospital Encounter [facility] [address] [place] [address] Social History Tobacco Use Types Packs/Day Years [...] on file Legal Sex Female 5:30 PM ALTERATIONS WORKROOM CLERK Gender Identity Female 06/12/2021 10:25 AM ALTERATIONS WORKROOM CLERK Sexual Orientation Straight 06/12/2021 10 :25 AM ALTERATIONS WORKROOM CLERK 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 Never 06/26/2024 1:11 PM ALTERATIONS WORKROOM CLERK Gal Bethea MA documented as of this encounter Plan of Treatment Not on file documented as of this encounter Procedures Procedure Name Priority Date/Time Associated Diagnosis Comments BREAST IMAGING MG DIAGNOSTIC OUTSIDE REFERENCE Routine 07/31/2014 12:05 AM ALTERATIONS WORKROOM CLERK documented in this encounter Results * Breast Imaging Diagnostic Outside Reference (07/31/2014 12:05 AM ALTERATIONS WORKROOM CLERK) Impressions [facility] - 06/03/2022 9:21 AM ALTERATIONS WORKROOM CLERK These images are for Reference purposes only and have not been reviewed by [facility]iology. There will be no report generated by a [facility] Radiologist. Narrative [facility] - 06/03/2022 9:21 AM ALTERATIONS WORKROOM CLERK EXAMINATION: Images For Reference Purposes Only us Nayely Vyas MECHANIC/WELDER IMG MAMMO PROCEDURES Fin al Result [facility] documented in this encounter Visit Diagnoses Not on filedocumented in this encounter Care Teams Auto Radiator Mechanic Relationship Specialty Start Date End Date Kaushal Lemus MD PCP - General 04/23/14 07/24/15 documented as of this encounter
--- OUTSIDE RECORDS SUMMARY | 2024-11-10 10:55 | XMS_ITS | Encounter Summary ---
Author Organization [facility] Healthcare Address [address] [place] [address] Care Team Providers Care Software Technician Name Role Phone Kaushal Lemus MD Primary Care Provider +- [phone] Reason for Visit * Diagnostic Imaging (Routine) - Closed Specialty Diagnoses / Procedures Referred By Manuel england Referred To Contact Diagnoses Mass of right breast, unspecified quadrant Procedures Breast Imaging US Outside Reference Nayely Vyas NP Phone: tel: fax: Referral ID Status Reason Start Date Expiration Date Visits Re quested Visits Authorized [id number] Closed 06/03/2022 07/03/2023 1 1 Encounter Details Date Type Department Care Team (Late st Contact Info) Description 07/31/2014 Hospital Encounter [facility] [address] [place] [address] Social History Tobacco Use Types Packs/Day Years [...] on file Legal Sex Female 5:30 PM FERRY BOAT CAPTAIN Gender Identity Female 06/12/2021 10:25 AM FERRY BOAT CAPTAIN Sexual Orientation Straight 06/12/2021 10 :25 AM FERRY BOAT CAPTAIN 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 Never 06/26/2024 1:11 PM FERRY BOAT CAPTAIN Gal Bethea MA documented as of this encounter Plan of Treatment Not on file documented as of this encounter Procedures Procedure Name Priority Date/Time Associated Diagnosis Comments BREAST IMAGING US OUTSIDE REFERENCE Routine 07/31/2014 12:00 AM FERRY BOAT CAPTAIN Mass of right breast, unspecified quadrant documented in this encounter Results * Breast Imaging US Outside Reference (07/31/2014 12:00 AM FERRY BOAT CAPTAIN) Impressions [facility] - 06/03/2022 9:21 AM FERRY BOAT CAPTAIN These images are for Reference purposes only and have not been reviewed by [facility]iology. There will be no report generated by a [facility] Radiologist. Narrative [facility] - 06/03/2022 9:21 AM FERRY BOAT CAPTAIN EXAMINATION: Images For Reference Purposes Only us Nayely Vyas INVESTMENT PROFESSIONAL IMG MAMMO PROCEDURES Fin al Result [facility] documented in this encounter Visit Diagnoses Not on filedocumented in this encounter Care Teams Software Technician Relationship Specialty Start Date End Date Kaushal Lemus MD PCP - General 04/23/14 07/24/15 documented as of this encounter
--- OUTSIDE RECORDS SUMMARY | 2024-11-10 10:56 | XMS_ITS | Referral Summary ---
Author Organization [facility] Phys[facility] Building [address] [place] [id number] Care Team Providers Care [facility] Account Executive Name Role Phone Carlee Laboy [employer]ORCY[employer] SALES [employer]OCIATE Unavailable [phone] Maricruz Pina MD Primary Care Provider Encounters Date Type Department Care Team Description 11/07/2024 1:00 PM CDT Office Visit [facility] [address] [place] [phone] Sheree Bernal PA Type 1 diabetes mellitus with hyperglycemia (HCC) (Primary Dx); Hypertension associated with type 1 diabetes mellitus (HCC); Hyperlipidemia due to type 1 diabetes mellitus (HCC) from Last 3 Months Allergies Active Allergy Reactions Criticality Noted Date Comments Codeine Itching Low 08/15/2010 Fluconazole Swelling Medium 11/19/2014 Other Other (See comments) Medium 06/22/2024 Dexcom adhesive. Burning, irritation from glue/adhesive on Dexcom sensors. Penicillins Unknown Unknown, reaction as child. Tolerates cephalosporin Sulfa (Sulfonamide Antibiotics) Hives,Itching Medium 11/13/2019 Medications blood-glucose meter (ACCU-CHEK JUSTIN PLUS METER) miscIndications:T ype 1 diabetes mellitus with hyperglycemia (HCC) TEST 8 TO 10 TIMES DAILY 1 each 8 Active blood glucose diagnostic (ACCU-CHEK JUSTIN PLUS TEST STRP) stripIndications: Type 1 diabetes mellitus with hyperglycemia (HCC) TEST 8 TO 10 TIMES DAILY 400 each 5 8 Active blood glucose control high,low (ACCU-CHEK JUSTIN CONTROL SOLN) solutionIndicatio ns:Type 1 diabetes mellitus with hyperglycemia (HCC) Use as directed 1 each 8 Active lancets (ACCU-CHEK SOFTCLIX LANCETS) miscIndications:T ype 1 diabetes mellitus with hyperglycemia (HCC) TEST 8 TO 10 TIMES DAILY 400 each 5 8 Active glucagon (Baqsimi) 3 mg/actuation spray,non-aerosol Administer 1 spray into one nostril as needed (for hypoglycemia) 2 each 6 2 Active pen needle, diabetic (BD Ultra-Fine Sarah Pen Needle) 32 gauge x /32 needle Use to inject 3 times daily. 300 each 1 3 Active semaglutide (OZEMPIC) 2 mg/dose (8 mg/3 mL) pen injector injection Inject 2 mg under the skin every 7 days 3 mL 3 Active calcium carbonate-vitamin D3 1,250mg (500mg elemental) - 5 mcg (200 units) per tablet Take 1 tablet by mouth 2 (two) times a day with meals Active cyanocobalamin (Vitamin B-12) 100 mcg tabletIndications :Prevention of Vitamin B12 Deficiency Take 1 tablet (100 mcg total) by mouth daily Active ALPRAZolam (XANAX) 0.25 mg tabletIndications :ROSE (generalized anxiety disorder) TAKE 1 TABLET(0.25 MG) BY MOUTH DAILY NEEDED FOR ANXIETY OR SEVERE ANXIETY 10 tablet 4 Active TRESIBA 100 unit/mL (3 mL) pen for injectionIndicati ons:Type 1 diabetes mellitus with hyperglycemia (HCC) ADMINISTER 28 UNITS UNDER THE SKIN DAILY 15 mL 5 4 Active rosuvastatin (CRESTOR) 20 mg tablet Take 1 tablet (20 mg total) by mouth daily 90 tablet 3 4 Active insulin lispro (HumaLOG, ADMELOG) 100 unit/mL pen for injectionIndicati ons:Type 1 diabetes mellitus with hyperglycemia (HCC) ADMINISTER UP TO 15 UNITS UNDER THE SKIN THREE TIMES DAILY BEFORE MEALS 15 mL 2 4 Active olmesartan (BENICAR) 20 mg tabletIndications :Type 1 diabetes mellitus with hyperglycemia (HCC) TAKE 1 TABLET BY MOUTH EVERY DAY 30 tablet 3 5 Active citalopram (CeleXA) 20 mg tabletIndications :ROSE (generalized anxiety disorder) Take 1 tablet (20 mg total) by mouth daily 90 tablet 3 5 Active FreeStyle Allyn 3 Plus Sensor deviceIndications :Type 1 diabetes mellitus with hyperglycemia (HCC) Change sensor every 15 days 6 each 3 5 Active semaglutide (Ozempic) 2 mg/dose (8 mg/3 mL) pen injector injectionIndicati ons:Type 1 diabetes mellitus with hyperglycemia (HCC) INJECT 2 MG UNDER THE SKIN EVERY 7 DAYS 3 mL 3 5 Active Active Problems Problem Noted Date Diagnosed Date 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 Noted on last eye exam which has been scanned in. Patient is following with Ophthalmology and Endocrinology. She will continue working with the specialists Hypertension associated with type 1 diabetes rachel litus 12/07/2022 Assessment & Plan (11/07/2024 2:31 PM CDT): Chronic problem, Controlled on olmesartan. No changes. Assessment & Plan (06/26/2024 1:49 PM BILLING SPEC): Chronic, stable Continue olmesartan Update GFR and microalbumin Assessment & Plan (08/04/2023 6:51 PM BILLING SPEC): Chronic diabetes and blood pressure. Blood pressure has been controlled. Continue her current blood pressure medications. Refills are coming from her nursing program director so we will let them continue to refill. If she wants me to take over then we will need to see her every 6 months for monitoring of the hypertension Assessment & Plan (06/01/2023 12:55 PM BILLING SPEC): Chronic, well-controlled Continue olmesartan Update GFR and MA Assessment & Plan (12/07/2022 4:33 PM CDT): Chronic, well-controlled continue losartan Hypoglycemia due to type 1 diabetes mellitus Assessment & Plan (05/26/2022 2:07 PM BILLING SPEC): Prevention and treatment of hypoglycemia were discussed Rx for Freida was sent. Hyperlipidemia due to type 1 diabetes mellitus 0 08/26/2020 Assessment & Plan (11/07/2024 2:31 PM CDT): Chronic problem. On statin therapy, no changes. Assessment & Plan (06/26/2024 1:48 PM BILLING SPEC): Chronic, stable. Continue statin therapy with rosuvastatin Update lipid profile Assessment & Plan (12/07/2023 11:45 AM CDT): Chronic, stable. Continue statin therapy with rosuvastatin Assessment & Plan (08/04/2023 6:51 PM BILLING SPEC): Chronic. Working with Endocrinology for type 1 diabetes. Tolerates rosuvastatin. Last LDL was near goal. Continue rosuvastatin Assessment & Plan (06/01/2023 12:54 PM BILLING SPEC): Chronic, well-controlled Continue statin therapy with rosuvastatin Update lipid profile Assessment & Plan (12/07/2022 4:32 PM CDT): I emphasized to him the importance of lowering LDL cholesterol in patient with diabetes due to increased cardiovascular risk She has agreed on resuming her Crestor Assessment & Plan (05/26/2022 2:06 PM BILLING SPEC): Chronic, well controlled Continue with statin therapy Assessment & Plan (12/02/2021 3:46 PM CDT): Chronic, well controlled Low fat Low cholesterol diet Exercise Continue statin therapy Assessment & Plan (12/03/2020 1:39 PM CDT): Goal of treatment , LDL cholesterol less than 100 ( less than 70 in patients with history of heart attacks and / or strokes ) NonHDL cholesterol ( total cholesterol minus HDL cholesterol ) goal less than 130 ( less than 100 in patients with history of heart attacks and / or strokes ) Low cholesterol, low fat diet was discussed and advised. Daily exercise On statin therapy with Crestor Assessment & Plan (08/26/2020 2:19 PM CDT): Goal of treatment , LDL cholesterol less than 100 ( less than 70 in patients with history of heart attacks and / or strokes ) NonHDL cholesterol ( total cholesterol minus HDL cholesterol ) goal less than 130 ( less than 100 in patients with history of heart attacks and / or strokes ) Low cholesterol, low fat diet was discussed and advised. Daily exercise Start Crestor Type 1 diabetes mellitus with hyperglycemia 07/08 Assessment & Plan (11/07/2024 2:33 PM CDT): Chronic problem, overall stable. She had to lower Tresiba for nocturnal hypoglycemia, discussed that she may need to adjust HL during the day if higher postprandial readings. But these have leveled out the past 5 days or so since school is out. Continue Ozempic, Tresiba, HL. We did discussed available pump therapies and hybrid partially closed loop systems. Prefers at this time to stay with injections. Assessment & Plan (06/26/2024 1:48 PM BILLING SPEC): Chronic, not at goal The patient to continue working on diet and exercise Lowering insulin to carb ratio to 8 and sensitivity factor to 50 Continue semaglutide Assessment & Plan (12/07/2023 11:45 AM CDT): Chronic, starting work with some hypo and hyperglycemia I advised him to stay on Tresiba, no more than 15 units in the morning Also to take 3 units Humalog always with lunch . Advise on starting an exercise program. She used to run Continue watching diet Assessment & Plan (06/01/2023 12:54 PM BILLING SPEC): Hba1c was Lab Results Component Value Date HGBA1C 7.3 06/01/2023 today, indicating suboptimal DM control Goal Hba1c under 7 and blood glucose level in the 120-160 range was explained Low carb diet and daily aerobic and /or resistant exercise were advised Prevention and treatment of hyypoglcyemia were discussed with the patient Blood glucose monitoring : Continue CGM with freestyle Allyn Adjustment to medications: Restart Ozempic. Samples were provided and prescription for 1 mg Ozempic also was sent since this seems to be available at the pharmacy Continue insulin regimen with Tresiba and Humalog Assessment & Plan (12/07/2022 4:31 PM CDT): Hba1c was Lab Results Component Value Date HGBA1C 6.5 12/07/2022 today, indicating DM control Goal Hba1c and blood glucose explained Diet and exercise were advised Prevention and treatment of hyypoglcyemia were discussed with the patient Blood glucose monitoring : Continue CGM with freestyle Allyn Adjustment to medications: Continue current regimen, including Tresiba, Humalog and Ozempic Assessment & Plan (05/26/2022 2:06 PM BILLING SPEC): Hba1c was Lab Results Component Value Date HGBA1C 6.7 05/26/2022 today, indicating adequate DM control with some hyper and hypo Goal Hba1c and blood glucose explained Diet and exercise were advised Prevention and treatment of hyypoglcyemia were discussed with the patient Blood glucose monitoring : FSL Adjustment to medications: Lower Tresiba to 16 units Take 1-2 units H with coffee / creamer Assessment & Plan (12/02/2021 3:46 PM CDT): Hba1c was Lab Results Component Value Date HGBA1C 6.9 12/02/2021 today, indicating adequate DM control Goal Hba1c and blood glucose explained Diet and exercise were advised Prevention and treatment of hyypoglcyemia were discussed with the patient Blood glucose monitoring : continue with FSL Adjustment to medications: Restart with Ozempic, a higher dose of 2 mg weekly I provided patient with pen sample and she will let me know if she tolerates well so we can send the prescription If she cannot tolerate the 2 mg will continue with 1 mg, which she has tolerated well Continue insulin regimen with Tresiba and Humalog The patient will adjust the dose of the Tresiba, lowering, a glucoses start dropping after the Ozempic has been restarted Assessment & Plan (05/29/2021 4:38 PM BILLING SPEC): Hba1c was Lab Results Component Value Date HGBA1C 7.1 05/29/2021 today, indicating inadequate DM control Goal Hba1c and blood glucose explained Diet and exercise were advised Prevention and treatment of hyypoglcyemia were discussed with the patient Blood glucose monitoring : Continue CGM with freestyle Allyn Adjustment to medications: Continue Tresiba and Humalog at current dose Will add Ozempic One pen samples given Patient to call me in 2 to 3 weeks to see how she is doing before sending the prescription for Ozempic Side effects were discussed, including nausea vomiting. The patient experienced severe nausea vomiting and or abdominal pain she will stop the medication and will let me know. Patient to sign MyChart Assessment & Plan (12/03/2020 1:39 PM CDT): Hba1c was Lab Results Component Value Date HGBA1C 6.9 12/03/2020 today, indicating adequate DM control Goal blood sugars in the 120-150 range , with Hb1c under 7.0 % was explained 1800 calorie, consistent carb diet recommended. No more than 30-45 grams of carbs per meal recommended, as well as avoiding high concentrated sweet drinks . 25-45 min daily exercise, combining both aerobic and resistance exercise recommended. The need to monitor blood glucose before meals and bedtime was discussed. Prevention and treatment of hyypoglcyemia discussed. Continue Tresiba and Humalog Continue CMG with Freestyle Allyn Assessment & Plan (08/26/2020 2:18 PM CDT): Hba1c was Lab Results Component Value Date HGBA1C 7.6 08/26/2020 today, indicating suboptimal DM control Goal blood sugars in the 120-150 range , with Hb1c under 7.0 % was explained 1800 calorie, consistent carb diet recommended. No more than 30-45 grams of carbs per meal recommended, as well as avoiding high concentrated sweet drinks . 25-45 min daily exercise, combining both aerobic and resistance exercise recommended. The need to monitor blood glucose before meals and bedtime was discussed. Prevention and treatment of hyypoglcyemia discussed. Continue Levemir and Humalog Restart Tandem insulin pump Start DEXCOM CGMS Assessment & Plan (11/13/2019 2:46 PM CDT): A1c 7.3. Has not been using pump appropriately and without BG, cannot assess settings. Instructed how to do this. Upload in 1-2 weeks and will adjust. Will contact [employer] parent trainer and order Dexcom. ROSE (generalized anxiety disorder) 05/12/2017 Assessment & Plan (08/04/2023 6:50 PM BILLING SPEC): Chronic. Controlled improving. Continue citalopram. Keep alprazolam very sparingly. Discussed addiction risk. Encouraged her to consider counseling. Monitor. Assessment & Plan (11/15/2018 5:10 PM CDT): We discussed use of anti-anxiety therapy if appropriate, including use of SSRI therapy (or other therapy) and/or anxiolytic therapy with short-acting benzodiazepine therapy. We also discussed the importance of adequate sleep, as well as use of a sleep aid if needed. Additional behavioral strategies were discussed to assist in stress management, including avoidance of illicit drugs & alcohol, daily aerobic & twice-weekly resistance exercise, maintenance of relaxing activities, regular involvement in healthy relationships with friends & family, a healthy balance diet, & mindfullness techniques such as yoga & medication. Further, we discussed use of professional counselling if appropriate, particularly to learn techniques of cognitive behavioral therapy. Assessment & Plan (05/12/2017 10:42 AM BILLING SPEC): Increase activity. Stick to prescribed nutrition plan, take prescriptions as instructed, call for any thought of suicide or homocidal ideation or anger outburst. Ensure 8hrs sleep if not getting this call to discuss so we can adjust medication Mild recurrent major depression 05/12/2017 Assessment & Plan (08/04/2023 6:51 PM BILLING SPEC): Chronic. Mood is improving with citalopram. Continue Assessment & Plan (12/23/2018 9:12 AM CDT): Recommend increase citalopram to 40 mg daily. She will titrate up to 30 mg 1st for 2 weeks. Patient education regarding medication will take 6 weeks or longer to start working. Initial side effects usually resolve in two week, such as dry mouth or sleepiness. May take in morning or evening just pick a time and be consistent. Recommend therapy as well. Call insurance company for list of preferred providers. If feelings of harming self or others occurs contact office or call 911. Return to clinic in 6 weeks for office visit to evaluate progress. Patient verbalized understanding. 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 Regular aerobic exercise. Medication changes per orders. Referral to psychological counseling. Psychological condition will be reassessed in 2 weeks. Resolved Problems Problem Noted Date Diagnosed Date Resolved Date Insulin pump status 11/13/2019 08/04/19 24 Assessment & Plan (11/13/2019 2:45 PM CDT): Instructed to enter BG and carbs instead of manual boluses Screening mammogram, encounter for 12/23/2018 08/04/2023 Assessment & Plan (12/23/2018 8:55 AM CDT): Current. Annual physical exam 12/23/2018 024 Assessment & Plan (12/23/2018 8:55 AM CDT): Patient comes in today for a routine physical exam. Health maintenance objectives were discussed and exam performed as noted. Pain of right hand 12/23/2018 4 Elbow pain, left 12/23/2018 08/04/2023 Assessment & Plan (12/23/2018 9:12 AM CDT): Encourage patient to rest. Nsaids prn. Ice prn Tennis elbow brace. If no improvement with conservative treatment contact office. Verbalizes suicidal thoughts 05/12/2017 08/04/2023 Assessment & Plan (05/12/2017 10:44 AM BILLING SPEC): Patient very aware of her feelings. Sometimes thinks it would be easier if she were , however has three girls and would never harm herself to leave them alone. Experiencing depression, anxiety and panic attacks currently. Encourage medical treatment and therapy. I spent 45 minutes with this patient, discussing her needs and expectations. Offering support, counseling, providing referral and medication. Panic attacks 05/12/2017 08/04/2023 Assessment & Plan (12/23/2018 9:11 AM CDT): Increase citalopram to 40 mg. Follow-up in 6 weeks. Assessment & Plan (11/15/2018 5:11 PM CDT): We discussed use of anti-anxiety therapy if appropriate, including use of SSRI therapy (or other therapy) and/or anxiolytic therapy with short-acting benzodiazepine therapy. We also discussed the importance of adequate sleep, as well as use of a sleep aid if needed. Additional behavioral strategies were discussed to assist in stress management, including avoidance of illicit drugs & alcohol, daily aerobic & twice-weekly resistance exercise, maintenance of relaxing activities, regular involvement in healthy relationships with friends & family, a healthy balance diet, & mindfullness techniques such as yoga & medication. Further, we discussed use of professional counselling if appropriate, particularly to learn techniques of cognitive behavioral therapy. See orders Assessment & Plan (05/12/2017 10:40 AM BILLING SPEC): New events. Xanax 0.25 mg TID prn Start Celexa 20 mg daily Refer to psychology. Dr. Woodruff BMI 29.0-29.9,adult 05/12/2017 08/04/19 Assessment & Plan (12/23/2018 8:46 AM CDT): BMI Follow-up includes: nutrition counseling, exercise counseling and education provided. Assessment & Plan (11/15/2018 5:11 PM CDT): BMI Follow-up includes: nutrition counseling, exercise counseling and education provided. Assessment & Plan (05/12/2017 10:39 AM BILLING SPEC): Body mass index is 26.94 kg/m . BMI Follow-up includes: nutrition counseling, exercise counseling and education provided. Cyst of skin 03/26/2014 08/04/2023 Overview (09/11/2016): Skin cyst Type 2 diabetes mellitus 10/21/201309/2016 Overview (09/11/2016): DMII WO CMP NT ST UNCNTR Type 1 diabetes mellitus without complication 10/22/19 14 08/04/2023 Overview (09/12/2016): DMI WO CMP UNCNTRLD Assessment & Plan (07/24/2019 3:06 PM BILLING SPEC): A1c 7.8. Agree that [employer] with [employer] and Dexcom sensor is a good choice since she has hypoglycemia unawareness, she is checking > 4x/day to ensure she does not have lows. Will order again and contact [employer] rep to be sure this goes through. No change to plan until then. Sick day rules reviewed. Assessment & Plan (12/23/2018 8:55 AM CDT): Hemoglobin A1c in November 8.2 Follows with Endocrinology. Working on obtaining insulin pump. Assessment & Plan (11/18/2018 10:41 AM CDT): A1c 8.2. Little change. FBG too low. Lower Tresiba to 16 units. Agree with decision to obtain CGM and insulin pump. Will have time over the summer to stabilize pattern. Will order today. Order labs. Focus on diet and exercise over summer. BG goals reviewed. Assessment & Plan (11/15/2018 5:10 PM CDT): eat three meals a day same time each day well balance using plate method found at myplate.gov stay well hydrated with water and walk 5 days a week [facility] endocrine See orders Assessment & Plan (04/11/2018 4:17 PM BILLING SPEC): A1c increased. Will try Tresiba samples to see if this provides better coverage. Provided with coupon. Check labs today. BG goals reviewed. Increase activity. Sick day rules provided in writing. Assessment & Plan (01/08/2017 9:09 AM CDT): A1c improved 7.2. Cautioned against tight control and risk for lows however this does not seem to be an issue at this point. No change to insulin plan. Check labs next Ov. Immunizations Immunization Administration Dates Next Due Influenza, Unspecified 05/29/2021(Deferr ed: Patient Refused),06/07/2020(Deferred: Patient Refused),12/23/2018(Deferred: Patient Refused) Pfizer SARS-CoV-2 Monovalent Vaccination (12+ Yrs) PURPLE 08/27/2020,08/06/2020 TD Preservative Free 02/11/2016 Social History Tobacco Use Types Packs/Day Years Used Date Smoking Tobacco: Never Smokeless Tobacco: Never Tobacco Cessation:Counseling Given: Not Answered Alcohol Use Standard Drinks/Week Comments Yes 0 [...] on file Legal Sex Female 5:30 PM BILLING SPEC Gender Identity Female 06/12/2021 10:25 AM BILLING SPEC Sexual Orientation Straight 06/12/2021 10 :25 AM BILLING SPEC 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 on file Not on file Last Filed Vital Signs Vital Sign Reading Time Taken Comments Blood Pressure 120/64 11/07/2024 1:09 PM CDT Pulse 72 11/07/2024 1:09 PM CDT Temperature 37.2 C (98.9 F) 05/06/2023 4:34 PM BILLING SPEC Respiratory Rate 20 06/26/2024 1:17 PM BILLING SPEC Oxygen Saturation 99% 05/06/2023 4:34 PM BILLING SPEC Inhaled Oxygen Concentration - - Weight 66 kg (145 lb 9.6 oz) 11/07/2024 1:09 PM CDT Height 172.7 cm (5' 8) 11/07/2024 1:09 PM CDT Body Mass Index 22.14 11/07/2024 1:09 PM CDT Plan of Treatment Not on file Procedures Procedure Name Priority Date/Time Associated Diagnosis Comments POCT HEMOGLOBIN A1C Routine 11/07/2024 1 :12 PM CDT Type 1 diabetes mellitus with hyperglycemia (HCC) POCT GLUCOSE Routine 11/07/2024 1:12 PM CDT Type 1 diabetes mellitus with hyperglycemia (HCC) EGFR Routine 06/26/2024 1:54 PM BILLING SPEC Type 1 diabetes mellitus with hyperglycemia (HCC) LIPID PANEL Routine 06/26/2024 1:54 PM BILLING SPEC Type 1 diabetes mellitus with hyperglycemia (HCC) ALBUMIN CREATININE RATIO, URINE Routine 06/26/2024 1:54 PM BILLING SPEC Type 1 diabetes mellitus with hyperglycemia (HCC) HEPATITIS PANEL, ACUTE Routine 08/04/2023 3:24 PM BILLING SPEC Transaminitis THYROID FUNCTION CASCADE Routine 08/04/2023 3:24 PM BILLING SPEC HM DIABETES EYE EXAM Routine 07/05/2023 10:36 AM BILLING SPEC HM PAP SMEAR WITH HPV Routine 01/19/2022 HM DNA STOOL Routine 04/16/2021 HM MAMMOGRAPHY Routine 06/11/2018 from Last 3 Months or Most Recently Relevant to Health Maintenance Results * (ABNORMAL) POCT hemoglobin A1c (11/07/2024 1:12 PM CDT) Hemoglobin A1C, POC 7.7(A) 4.0 - 5.6 % Capillary blood 11/07/2024 1 :12 PM CDT Result [facility] Sheree VALDES POINT OF CARE TEST ORDE RABLES Final Result * POCT glucose (11/07/2024 1:12 PM CDT) Pathologist [facility] Glucose Blood, POC 265 Normal Fasting 70 - 100, Random <200 mg/dL Blood 11/07/2024 1:12 PM CDT Result [facility] Sheree VALDES POINT OF CARE TEST ORDE RABLES Final Result * eGFR (06/26/2024 1:54 PM BILLING SPEC) [facility] eGFR >90 >=60 mL/min/1. 73 m2 Comment: Interpretive Data Reference Interval Normal >/= 90 mL/min/1.73m2 Mildly decreased* 60 - 89 mL/min/1.73m2 Mildly to moderately decreased 45 - 59 mL/min/1.73m2 Moderately to severely decreased 30 - 44 mL/min/1.73m2 Severely decreased 15 - 29 mL/min/1.73m2 Kidney Failure < 15 mL/min/1.73m2 *Relative to young adult level Estimated glomerular filtration rate is determined by the 2020 CKD-EPI equation recommended by the National [employer] (A Unifying Approach to GFR Estimation: Recommendations of the NKF-ASK Task Force on Reassessing the Inclusion of Race in Diagnosing Kidney Disease, JASN 2020). The CKD-EPI equation should not be used for patients with unstable renal function and has not been validated in children and those over 70. Current interpretive data was last reviewed 2021. Blood 06/26/2024 1:54 PM BILLING SPEC 06/26/2024 5:30 PM BILLING SPEC Result [facility] Adelita Shelton MD LAB BLOOD ORDERABLES Final Resul t NARGIS WILLIAM [address] Department [place] [address] * Albumin Creatinine Ratio, Urine (06/26/2024 1:54 PM BILLING SPEC) [facility] Albumin Ur <12.0 mg/L Comment: Interpretive Data No reference range established. Current interpretive data was last revised 2018. Creatinine Ur 233.9 mg/dL NARGIS Comment: Interpretive Data No reference range established. Current interpretive data was last revised 2018. Albumin Creatinine Ratio, Ur <5 1 - 29 mg/g NARGIS WILLIAM Urine 06/26/2024 1:54 PM BILLING SPEC 06/26/2024 4:31 PM BILLING SPEC us Adelita Shelton MD LAB URINE ORDERABLES Final Resul t NARGIS [address] Department [place] [address] * Lipid panel (06/26/2024 1:54 PM BILLING SPEC) Cholesterol 161 30 - 199 mg/dL Comment: Interpretive Data Ages < or = 19 years Acceptable: <170 mg/dL Borderline high: 170-199 mg/dL High: >or= 200 mg/dL Ages > or = 20 years Desirable: <200 mg/dL Borderline high: 200-239 mg/dL High: >or= 240 mg/dL Literature References: 1. Expert Panel on Integrated Guidelines for Cardiovascular Health and Risk Reduction in Children and Adolescents. Pediatrics 2011;128:S213 2. NCEP Expert Panel. Circulation 2004;110:227 Current Interpretive Data was last revised on 2018. Triglycerides 47 <=149 mg/dL NARG[facility] WILLIAM Comment: Interpretive Data Ages < or = 9 years Acceptable: <75 mg/dL Borderline high: 75-99 mg/dL High: >or= 100 mg/dL Ages 10 to 20 years Acceptable: <90 mg/dL Borderline high: 90-129 mg/dL High: >or= 130 mg/dL Ages > or = 20 years Desirable: <150 mg/dL Borderline high: 150-199 mg/dL High: 200-499 mg/dL Very high: >or= 499 mg/dL Literature References: 1. Expert Panel on Integrated Guidelines for Cardiovascular Health and Risk Reduction in Children and Adolescents. Pediatrics 2011;128:S213 2. NCEP Expert Panel. Circulation 2004;110:227 Current Interpretive Data was last revised on 2018. HDL 95 >=40 mg/dL NARGIS Comment: Interpretive Data Ages < or = 19 years Acceptable: >45 mg/dL Borderline low: 40-45 mg/dL Low: <40 mg/dL Ages > or = 20 years Desirable: >or= 60 mg/dL Low: <40 mg/dL Literature References: 1. Expert Panel on Integrated Guidelines for Cardiovascular Health and Risk Reduction in Children and Adolescents. Pediatrics 2011;128:S213 2. NCEP Expert Panel. Circulation 2004;110:227 Current Interpretive Data was last revised on 2018. LDL, calculated 56 <=129 mg/dL NARGIS Comment: Interpretive Data Ages < or = 19 years Acceptable: <110 mg/dL Borderline high: 110-129 mg/dL High: >or= 130 mg/dL Ages > or = 20 years Optimal: <100 mg/dL Near optimal: 100-129 mg/dL Borderline high: 130-159 mg/dL High: >160 mg/dL Calculated using the Maurizio LDL-C estimating equation. This equation was implemented on 2024. Prior to this date LDL-C was estimated using the Friedewald equation. Literature References: 1. Expert Panel on Integrated Guidelines for Cardiovascular Health and Risk Reduction in Children and Adolescents. Pediatrics 2011;128:S213 2. NCEP Expert Panel. Circulation 2004;110:227 3. Maurizio Mcqueen al. JACKIE Cardiol. 2019October 05;5(5):540-548. doi: 10.1001/jamacardio.2020.0013 Current Interpretive Data was last revised on 2024. Non-HDL Cholesterol 66 mg/dL NARGIS Comment: Interpretive Data Ages < or = 19 years Acceptable: <120 mg/dL Borderline high: 120-144 mg/dL High: >145 mg/dL Ages > or = 20 years When triglycerides are >200 mg/dL, Non-HDL cholesterol is a secondary target of therapy with treatment goals that are 30 mg/dL greater than the LDL cholesterol target. Literature References: 1. Expert Panel on Integrated Guidelines for Cardiovascular Health and Risk Reduction in Children and Adolescents. Pediatrics 2011;128:S213 2. NCEP Expert Panel. Circulation 2004;110:227 Current Interpretive Data was last revised on 2018. Chol/HDL ratio 2 NARGIS Blood 06/26/2024 1:54 PM BILLING SPEC 06/26/2024 4:31 PM BILLING SPEC Adelita Shelton MD LAB BLOOD ORDERABLES Final Resul t NARGIS [address] Department [place] [employer] [place] [address] * Thyroid Function Lyman (08/04/2023 3:24 PM BILLING SPEC) TSH 1.81 0.30 - 4.20 mcIUnit/mL [facility] Blood 08/04/2023 3:24 PM BILLING SPEC 08/04/2023 7:18 PM BILLING SPEC Maricruz Pina MD LAB BLOOD ORDERABLES F inal Result Performing Organization Address [facility] Co de Phone Number [facility] [id number] Department [place] [employer] [place] [address] * Hepatitis panel, acute Blood (08/04/2023 3:24 PM BILLING SPEC) Hep A IgM Nonreactive Nonreactive [facility] Comment: Interpretive Data: If Hep A IgM Ab is reported as Equivocal, a new sample should be drawn in two weeks for testing. Current interpretive data was last revised on 19. Hep B core IgM Nonreactive Nonreactive [facility] Comment: Interpretive Data If HepB Core IgM Ab is reported as Equivocal, a new sample should be drawn in two weeks for testing. Current interpretive data was last revised on 19. Hep C Ab Nonreactive Nonreactive [facility] Comment: Interpretive Data Nonreactive: Antibodies to HCV not detected. Does NOT exclude the possibility of recent exposure to HCV. Equivocal: Equivocal for HCV antibodies. Supplemental molecular testing will be automatically performed to determine infection status in accordance with current CDC screening recommendations. Reactive: Positive for HCV antibodies. This may represent current or past HCV infection. Supplemental molecular testing will be automatically performed to determine current infection status in accordance with current CDC screening recommendations. Interpretive data was last revised on 2019. HepBsAg Nonreactive Nonreactive [facility] Blood 08/04/2023 3:24 PM BILLING SPEC 08/04/2023 7:32 PM BILLING SPEC Maricruz Pina MD LAB MICROBIOLOGY - GEN ERAL ORDERABLES Final Result NARGIS WILLIAM [address] Department [place] [address] * (ABNORMAL) DIABETES EYE EXAM (07/05/2023 10:36 AM BILLING SPEC) Result [facility] Historical Provider HEALTH MAINTENANCE Final Result * PAP SMEAR WITH HPV (01/19/2022) Scribed Pap Smear w/HPV Normal Comment:care everywhere Result [facility] Historical Provider HEALTH MAINTENANCE Final Result * DNA STOOL (04/16/2021) Scribed Stool DNA - Cologuard Negative Comment:see care everywhere Result [facility] Historical Provider HEALTH MAINTENANCE Final Result * MAMMOGRAPHY (06/11/2018) Mammogram Normal Result [facility] Historical Provider HEALTH MAINTENANCE Final Result from Last 3 Months or Most Recently Relevant to Health Maintenance Insurance [employer] [facility] ACCESS CHOICE Care Teams Regional Account Executive Relationship Specialty Start Date End Date Maricruz Pina MD PCP - General Family Medicine 08/04/23 Carlee Laboy NP Nurse Practitioner Nurse Practitioner 04/10/22
--- OUTSIDE RECORDS SUMMARY | 2024-11-10 10:56 | XMS_ITS | Encounter Summary ---
Author Organization [facility] Healthcare Address [address] [place] [address] Care Team Providers Care Slunk Skinner Name Role Phone Kaushal Lemus MD Primary Care Provider +- [phone] Reason for Visit * Diagnostic Imaging (Routine) - Closed Specialty Diagnoses / Procedures Referred By Manuel england Referred To Contact Procedures Breast Imaging Screening Outside Reference Nayely Vyas NP Phone: tel: fax: Referral ID Status Reason Start Date Expiration Date Visits Re quested Visits Authorized [id number] Closed 06/03/2022 07/03/2023 1 1 Encounter Details Date Type Department Care Team (Late st Contact Info) Description 05/17/2013 Hospital Encounter [facility] [address] [place] [address] Social History Tobacco Use Types Packs/Day Years [...] on file Legal Sex Female 5:30 PM [facility] Gender Identity Female 06/12/2021 10:25 AM [facility] Sexual Orientation Straight 06/12/2021 10 :25 AM [facility] 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 Never 06/26/2024 1:11 PM [facility] Gal Bethea MA Q2: How many drinks containing alcohol do you have on a typical day when you are drinking? Patient does not drink 06/26/2024 1:11 PM Gal Chan MA Q3: How often do you have six or more drinks on one occasion? Never 06/26/2024 1:11 PM Gal Chan MA documented as of this encounter Plan of Treatment Not on file documented as of this encounter Procedures Procedure Name Priority Date/Time Associated Diagnosis Comments BREAST IMAGING MG SCREENING OUTSIDE REFERENCE Routine 05/17/2013 12:00 AM [facility] documented in this encounter Results * Breast Imaging Screening Outside Reference (05/17/2013 12:00 AM [facility]) Impressions [facility] - 06/03/2022 9:23 AM [facility] These images are for Reference purposes only and have not been reviewed by [facility] Radiology. There will be no report generated by a [facility] Radiologist. Narrative [facility] - 06/03/2022 9:23 AM [facility] EXAMINATION: Images For Reference Purposes Only us Nayely Vyas INTERFACE DEVELOPER IMG MAMMO PROCEDURES Fin al Result [facility] documented in this encounter Visit Diagnoses Not on filedocumented in this encounter Care Teams Slunk Skinner Relationship Specialty Start Date End Date Kaushal Lemus MD PCP - General 09/17/11 04/22/14 documented as of this encounter
--- OUTSIDE RECORDS SUMMARY | 2024-11-10 10:56 | XMS_ITS | Encounter Summary ---
Author Organization [facility] Healthcare Address [address] [place] [address] Care Team Providers Care Control Panel Operator Name Role Phone Kaushal Lemus MD Primary Care Provider +- [phone] Reason for Visit * Diagnostic Imaging (Routine) - Closed Specialty Diagnoses / Procedures Referred By Manuel england Referred To Contact Procedures Breast Imaging Diagnostic Outside Reference Nayely Vyas NP Phone: tel: fax: Referral ID Status Reason Start Date Expiration Date Visits Re quested Visits Authorized [id number] Closed 06/03/2022 07/03/2023 1 1 Encounter Details Date Type Department Care Team (Late st Contact Info) Description 06/27/2013 Hospital Encounter [facility] [address] [place] [address] Social History Tobacco Use Types Packs/Day Years [...] on file Legal Sex Female 5:30 PM [employer]ER Gender Identity Female 06/12/2021 10:25 AM [employer] Sexual Orientation Straight 06/12/2021 10 :25 AM [employer] 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 Never 06/26/2024 1:11 PM [employer] Gal Bethea MA Q2: How many drinks [...] BREAST IMAGING MG DIAGNOSTIC OUTSIDE REFERENCE Routine 06/27/2013 12:00 AM [employer] documented in this encounter Results * Breast Imaging Diagnostic Outside Reference (06/27/2013 12:00 AM [employer] [employer]) Impressions [facility] - 06/03/2022 9:22 AM SP[employer] MOSS P[employer]ER These images are for Reference purposes only and have not been reviewed by [facility] Radiology. There will be no report generated by a [facility] Radiologist. Narrative [facility] - 06/03/2022 9:22 AM SPAN[employer] MOSS [employer]ER EXAMINATION: Images For Reference Purposes Only us Nayely Vyas PLAYER PIANO TECHNICIAN IMG MAMMO PROCEDURES Fin al Result [facility] documented in this encounter Visit Diagnoses Not on filedocumented in this encounter Care Teams Control Panel Operator Relationship Specialty Start Date End Date Kaushal Lemus MD PCP - General 09/17/11 04/22/14 documented as of this encounter
--- OUTSIDE RECORDS SUMMARY | 2024-11-10 10:56 | XMS_ITS | Clinical Summary ---
Author Organization [facility] Physician Office Building [address] [place] [id number] Care Team Providers Care Associate [employer] Name Role Phone Carlee Laboy Liya TEACHER ASST Unavailable [phone] Maricruz Pina MD Primary Care Provider Allergies Active Allergy Reactions Criticality Noted Date [...] 8 TO 10 TIMES DAILY 1 each 1 8 Active blood glucose diagnostic (ACCU-CHEK JUSTIN [...] Ultra-Fine Sarah Pen Needle) 32 gauge x 5/32 needle Use to inject 3 times daily. [...] 08/04/2023 Assessment & Plan (08/04/2023 6:56 PM INDEPENDENT CROP CONSULTANT): Mild. Noted on last eye exam which has been scanned in. Patient is following with Ophthalmology and Endocrinology. She will continue working with the specialists Hypertension associated with type 1 diabetes rachel litus 12/07/2022 Assessment & Plan (11/07/2024 2:31 PM CDT): Chronic problem, Controlled on olmesartan. No changes. Assessment & Plan (06/26/2024 1:49 PM INDEPENDENT CROP CONSULTANT): Chronic, stable Continue olmesartan Update GFR and microalbumin Assessment & Plan (08/04/2023 6:51 PM INDEPENDENT CROP CONSULTANT): Chronic diabetes and blood pressure. Blood pressure has been controlled. Continue her current blood pressure medications. 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 If she wants me to take over then we will need to see her every 6 months for monitoring of the hypertension Assessment & Plan (06/01/2023 12:55 PM INDEPENDENT CROP CONSULTANT): Chronic, well-controlled Continue olmesartan Update GFR and MA Assessment & Plan (12/07/2022 4:33 PM CDT): Chronic, well-controlled continue losartan Hypoglycemia due to type 1 diabetes mellitus Assessment & Plan (05/26/2022 2:07 PM INDEPENDENT CROP CONSULTANT): Prevention and treatment of hypoglycemia were discussed Rx for Baqsimi was sent. Hyperlipidemia due to type 1 diabetes mellitus 0 08/26/2020 Assessment & Plan (11/07/2024 2:31 PM CDT): Chronic problem. On statin therapy, no changes. Assessment & Plan (06/26/2024 1:48 PM INDEPENDENT CROP CONSULTANT): Chronic, stable. Continue statin therapy with rosuvastatin Update lipid profile Assessment & Plan (12/07/2023 11:45 AM CDT): Chronic, stable. Continue statin therapy with rosuvastatin Assessment & Plan (08/04/2023 6:51 PM INDEPENDENT CROP CONSULTANT): Chronic. Working with Endocrinology for type 1 diabetes. Tolerates rosuvastatin. Last LDL was near goal. Continue rosuvastatin Assessment & Plan (06/01/2023 12:54 PM INDEPENDENT CROP CONSULTANT): Chronic, well-controlled Continue statin therapy with rosuvastatin Update lipid profile Assessment & Plan (12/07/2022 4:32 PM CDT): I emphasized to him the importance of lowering LDL cholesterol in patient with diabetes due to increased cardiovascular risk She has agreed on resuming her Crestor Assessment & Plan (05/26/2022 2:06 PM INDEPENDENT CROP CONSULTANT): Chronic, well controlled Continue with statin therapy [...] injections. Assessment & Plan (06/26/2024 1:48 PM INDEPENDENT CROP CONSULTANT): Chronic, not at goal The patient to [...] diet Assessment & Plan (06/01/2023 12:54 PM INDEPENDENT CROP CONSULTANT): Hba1c was Lab Results Component Value Date [...] Ozempic Assessment & Plan (05/26/2022 2:06 PM INDEPENDENT CROP CONSULTANT): Hba1c was Lab Results Component Value Date [...] restarted Assessment & Plan (05/29/2021 4:38 PM INDEPENDENT CROP CONSULTANT): Hba1c was Lab Results Component Value Date [...] 1-2 weeks and will adjust. Will contact Bala Hilton physical fitness trainer and order Dexcom. ROSE (generalized anxiety disorder) 05/12/2017 Assessment & Plan (08/04/2023 6:50 PM INDEPENDENT CROP CONSULTANT): Chronic. Controlled improving. Continue citalopram. Keep alprazolam [...] therapy. Assessment & Plan (05/12/2017 10:42 AM INDEPENDENT CROP CONSULTANT): Increase activity. Stick to prescribed nutrition plan, take prescriptions as instructed, call for any thought of suicide or homocidal ideation or anger outburst. Ensure 8hrs sleep if not getting this call to discuss so we can adjust medication Mild recurrent major depression 05/12/2017 Assessment & Plan (08/04/2023 6:51 PM INDEPENDENT CROP CONSULTANT): Chronic. Mood is improving with citalopram. Continue [...] out of control For emergency go to [facility] for evaluation as they have counselor computer systems information director 28/12 See orders Assessment & Plan (05/12/2017 10:40 AM INDEPENDENT CROP CONSULTANT): Psychological condition is newly identified. Regular aerobic [...] 08/04/2023 Assessment & Plan (05/12/2017 10:44 AM INDEPENDENT CROP CONSULTANT): Patient very aware of her feelings. Sometimes [...] orders Assessment & Plan (05/12/2017 10:40 AM INDEPENDENT CROP CONSULTANT): New events. Xanax 0.25 mg TID prn Start Celexa 20 mg daily Refer to psychology. Dr. Woodruff BMI 29.0-29.9,adult 05/12/2017 08/04/19 24 Assessment & Plan (12/23/2018 8:46 AM CDT): BMI Follow-up includes: nutrition counseling, exercise counseling and education provided. Assessment & Plan (11/15/2018 5:11 PM CDT): BMI Follow-up includes: nutrition counseling, exercise counseling and education provided. Assessment & Plan (05/12/2017 10:39 AM INDEPENDENT CROP CONSULTANT): Body mass index is 26.94 kg/m . BMI Follow-up includes: nutrition counseling, exercise counseling and education provided. Cyst of skin 03/26/2014 08/04/2023 Overview (09/11/2016): Skin cyst Type 2 diabetes mellitus 10/21/201309/2016 Overview (09/11/2016): DMII WO CMP NT ST UNCNTR Type 1 diabetes mellitus without complication 10/22/19 14 08/04/2023 Overview (09/12/2016): [facility] Assessment & Plan (07/24/2019 3:06 PM INDEPENDENT CROP CONSULTANT): A1c 7.8. Agree that Bala Hilton with [...] well balance using plate method found at [employer] stay well hydrated with water and walk 5 days a week Fu endocrine See orders Assessment & Plan (04/11/2018 4:17 PM INDEPENDENT CROP CONSULTANT): A1c increased. Will try Tresiba samples to [...] to insulin plan. Check labs next Ov. Encounters Date Type Department Care Team Description 11/07/2024 1:00 PM CDT Office Visit [facility] [address] [address] Sheree Bernal PA Type 1 diabetes mellitus with hyperglycemia (HCC) (Primary Dx); Hypertension associated with type 1 diabetes mellitus (HCC); Hyperlipidemia due to type 1 diabetes mellitus (HCC) from Last 3 Months Immunizations Immunization Administration Dates Next Due Influenza, Unspecified 05/29/2021(Deferr ed: Patient Refused),06/07/2020(Deferred: Patient Refused),12/23/2018(Deferred: Patient Refused) Pfizer SARS-CoV-2 Monovalent Vaccination (12+ Yrs) PURPLE 08/27/2020,08/06/2020 TD Preservative Free 02/11/2016 Surgical History Surgery Date Site/Laterality Comments OTHER SURGICAL HISTORY sections x 3 OTHER SURGICAL HISTORY exc. cyst right buttock OTHER SURGICAL HISTORY c sections x 3 Medical History Medical History Date Comments Diabetes mellitus (HCC) Diabetes Hypertension High cholesterol ROSE (generalized anxiety disorder) Family History Medical History Relation Name Comments No Known Problems Father Ovarian cancer Maternal Grandmother cance r, ovarian; Ovarian cancer Mother Other Other No family histo ry of Diabetes mellitus type 1; Cervical cancer Paternal Grandmother Canc er, cervical; Relation Name Status Comments Father Alive Maternal Grandmother Alive Mother Alive Other Paternal Grandmother Alive Social History Tobacco Use Types Packs/Day Years [...] on file Legal Sex Female 5:30 PM INDEPENDENT CROP CONSULTANT Gender Identity Female 06/12/2021 10:25 AM INDEPENDENT CROP CONSULTANT Sexual Orientation Straight 06/12/2021 10 :25 AM INDEPENDENT CROP CONSULTANT 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 on file Not on file Obstetrics History Para Term AB IAB SAB Ectopic Multiple Livin g Live Births 5 3 3 2 2 3 3 Date Outcome GA Total Labor Labor/2nd/3rd Weight Sex Type Anes PTL Jazmyne A1 A5 Name Clin 2002 Term 40w 0d 3.459 kg (7 lb 10 oz) F C-S j incis Spinal Y Livin g 2004 SAB 9w0 d 2006 Term 37w 0d 3.629 kg (8 lb) F C-S j incis N Livin g 2008 SAB 17w 0d M 2010 Term 37w 1d 3.894 kg (8 lb 9.4 oz) F C-S j incis Livin g 9 9 MILLE R,BAB Y GIRL KIMBE PRAVEENAY Shawna stringer MD Delivery Location[facility] Last Filed Vital Signs Vital Sign Reading Time Taken Comments Blood Pressure 120/64 11/07/2024 1:09 PM CDT Pulse 72 11/07/2024 1:09 PM CDT Temperature 37.2 C (98.9 F) 05/06/2023 4:34 PM INDEPENDENT CROP CONSULTANT Respiratory Rate 20 06/26/2024 1:17 PM INDEPENDENT CROP CONSULTANT Oxygen Saturation 99% 05/06/2023 4:34 PM INDEPENDENT CROP CONSULTANT Inhaled Oxygen Concentration - - Weight 66 kg (145 lb 9.6 oz) 11/07/2024 1:09 PM CDT Height 172.7 cm (5' 8) 11/07/2024 1:09 PM CDT Body Mass Index 22.14 11/07/2024 1:09 PM CDT Plan of Treatment Health Maintenance Due Date Last Done Comments Hepatitis B Screening 11/13/1993 Pneumococcal vaccine <65 (1 of 2 - PCV) 11/13/1994 DTaP/Tdap/Td Vaccine (1 - Tdap) 02/12/2016 6 Covid-19 Vaccine (3 - 2023-2 5 season) 2024 08/27/2020, 08/06/2020 Colon Cancer Screening-DNA Stool 04/16/2024 04/16/20 21 Dilated Eye Exam 07/05/2024 07/05/2023, 10/17/2018 Regular Well Visit/Exam 18-64 08/04/2024, 05/28/2022, 12/23/2018 TSH Level 08/04/2024 08/04/2023, 05/28/2022 Breast Cancer Screening-Mammogram 12/05/2024 12/06/2023, 12/06/2023, 06/03/2022, Additional history exists Cervical Cancer Screening 01/19/2025 01/19/2022, 10/2018 Influenza Vaccine (Season Ended) 2025 Hemoglobin A1C 05/09/2025 11/07/2024, 06/08, 12/07/2023, Additional history exists Albumin Creatinine Ratio, Urine 06/26/2025 06/26/2024, 06/01/2023, 12/02/2021, Additional history exists Depression Screening 06/26/2025 06/26/2024, 12/07/2023, 08/04/2023, Additional history exists Lipid Panel 06/26/2025 06/26/2024, 05/08, 05/28/2022, Additional history exists eGFR 06/26/2025 06/26/2024, 05/08, 05/28/2022, Additional history exists Foot Exam 11/07/2025 11/07/2024, 05/08, 12/02/2021, Additional history exists Hepatitis C Screening Completed 08/04/2023 Procedures Procedure Name Priority Date/Time Associated Diagnosis Comments POCT HEMOGLOBIN A1C Routine 11/07/2024 1 :12 PM CDT Type 1 diabetes mellitus with hyperglycemia (HCC) POCT GLUCOSE Routine 11/07/2024 1:12 PM CDT Type 1 diabetes mellitus with hyperglycemia (HCC) EGFR Routine 06/26/2024 1:54 PM INDEPENDENT CROP CONSULTANT Type 1 diabetes mellitus with hyperglycemia (HCC) LIPID PANEL Routine 06/26/2024 1:54 PM INDEPENDENT CROP CONSULTANT Type 1 diabetes mellitus with hyperglycemia (HCC) ALBUMIN CREATININE RATIO, URINE Routine 06/26/2024 1:54 PM INDEPENDENT CROP CONSULTANT Type 1 diabetes mellitus with hyperglycemia (HCC) HEPATITIS PANEL, ACUTE Routine 08/04/2023 3:24 PM INDEPENDENT CROP CONSULTANT Transaminitis THYROID FUNCTION CASCADE Routine 08/04/2023 3:24 PM INDEPENDENT CROP CONSULTANT HM DIABETES EYE EXAM Routine 07/05/2023 10:36 AM INDEPENDENT CROP CONSULTANT HM PAP SMEAR WITH HPV Routine 01/19/2022 HM DNA STOOL Routine 04/16/2021 HM MAMMOGRAPHY Routine 06/11/2018 from Last 3 Months or Most Recently Relevant to Health Maintenance Results * (ABNORMAL) POCT hemoglobin A1c (11/07/2024 1:12 PM CDT) Hemoglobin A1C, POC 7.7(A) 4.0 - 5.6 % Capillary blood 11/07/2024 1 :12 PM CDT Sheree VALDES POINT OF CARE TEST ORDE RABLES Final Result * POCT glucose (11/07/2024 1:12 PM CDT) Pathologist [facility] Glucose Blood, POC 265 Normal Fasting 70 - 100, Random <200 mg/dL Blood 11/07/2024 1:12 PM CDT Sheree VALDSE POINT OF CARE TEST ORDE RABLES Final Result * eGFR (06/26/2024 1:54 PM INDEPENDENT CROP CONSULTANT) eGFR >90 >=60 mL/min/1. 73 m2 Comment: [...] of Race in Diagnosing Kidney Disease, JASN 202). The CKD-EPI equation should not be used for patients with unstable renal function and has not been validated in children and those over 70. Current interpretive data was last reviewed 2021. Blood 06/26/2024 1:54 PM INDEPENDENT CROP CONSULTANT 06/26/2024 5:30 PM INDEPENDENT CROP CONSULTANT us Adelita Shelton MD LAB BLOOD ORDERABLES Final Resul t Performing Organization Address [facility] de Phone Number NARGIS [address] [place] [address] * Albumin Creatinine Ratio, Urine (06/26/2024 1:54 PM INDEPENDENT CROP CONSULTANT) Albumin Ur <12.0 mg/L Comment: Interpretive Data No reference range established. Current interpretive data was last revised 2018. Creatinine Ur 233.9 mg/dL NARGIS Comment: Interpretive Data No reference range established. Current interpretive data was last revised 2018. Albumin Creatinine Ratio, Ur <5 1 - 29 mg/g NARGIS Urine 06/26/2024 1:54 PM INDEPENDENT CROP CONSULTANT 06/26/2024 4:31 PM INDEPENDENT CROP CONSULTANT us Adelita Shelton MD LAB URINE ORDERABLES Final Resul t Performing Organization Address [facility] Co de Phone Number NARGIS [id number] [facility] [place] [address] * Lipid panel (06/26/2024 1:54 PM INDEPENDENT CROP CONSULTANT) Cholesterol 161 30 - 199 mg/dL Comment: [...] on 2018. HDL 95 >=40 mg/dL NARGIS WILLIAM Comment: Interpretive Data Ages [...] 2018. LDL, calculated 56 <=129 mg/dL NARGIS WILLIAM Comment: Interpretive Data Ages < or = 19 years Acceptable: <110 mg/dL Borderline high: 110-129 mg/dL High: >or= 130 mg/dL Ages > or = 20 years Optimal: <100 mg/dL Near optimal: 100-129 mg/dL Borderline high: 130-159 mg/dL High: >160 mg/dL Calculated using the Steven LDL-C estimating equation. This equation was implemented on 2024. Prior to this date LDL-C was estimated using the Friedewald equation. Literature References: 1. Expert Panel on Integrated Guidelines for Cardiovascular Health and Risk Reduction in Children and Adolescents. Pediatrics 2011;128:S213 2. NCEP Expert Panel. Circulation 2004;110:227 3. Maurizio Mora et al. JACKIE Cardiol. 2019October 05;5(5):540-548. doi: 10.1001/jamacardio.2020.0013 Current Interpretive Data was last revised on 2024. Non-HDL Cholesterol 66 mg/dL CERNER CH Comment: Interpretive Data Ages < or = [...] last revised on 2018. Chol/HDL ratio 2 [facility] Blood 06/26/2024 1:54 PM INDEPENDENT CROP CONSULTANT 06/26/2024 4:31 PM INDEPENDENT CROP CONSULTANT Adelita Shelton MD LAB BLOOD ORDERABLES Final Resul t Performing Organization Address City/[facility]/ZIP Co de Phone Number NARGIS [address] [place] [address] * Thyroid Function [place] (08/04/2023 3:24 PM INDEPENDENT CROP CONSULTANT) TSH 1.81 0.30 - 4.20 mcIUnit/mL [facility]ER [facility] Blood 08/04/2023 3:24 PM INDEPENDENT CROP CONSULTANT 08/04/2023 7:18 PM INDEPENDENT CROP CONSULTANT us Maricruz Pina MD LAB BLOOD ORDERABLES F inal Result Performing Organization Address City/[facility]/ZIP Co de Phone Number NARGIS [address] [place] [address] * Hepatitis panel, acute Blood (08/04/2023 3:24 PM INDEPENDENT CROP CONSULTANT) Hep A IgM Nonreactive Nonreactive [facility] Comment: Interpretive Data: If Hep A IgM Ab is reported as Equivocal, a new sample should be drawn in two weeks for testing. Current interpretive data was last revised on 19. Hep B core IgM Nonreactive Nonreactive [facility] Comment: Interpretive Data If HepB Core IgM Ab is reported as Equivocal, a new sample should be drawn in two weeks for testing. Current interpretive data was last revised on 19. Hep C Ab Nonreactive Nonreactive [facility] Comment: Interpretive Data Nonreactive: Antibodies to HCV [...] last revised on 2019. HepBsAg Nonreactive Nonreactive [facility] Blood 08/04/2023 3:24 PM INDEPENDENT CROP CONSULTANT 08/04/2023 7:32 PM INDEPENDENT CROP CONSULTANT Maricruz Pina MD LAB MICROBIOLOGY - GEN ERAL ORDERABLES Final Result [facility] [id number] Department [place] [address] * (ABNORMAL) DIABETES EYE EXAM (07/05/2023 10:36 AM INDEPENDENT CROP CONSULTANT) Historical Provider HEALTH MAINTENANCE Final Result * PAP SMEAR WITH HPV (01/19/2022) Scribed Pap Smear w/HPV Normal Comment:care everywhere Historical Provider HEALTH MAINTENANCE Final Result * DNA STOOL (04/16/2021) Scribed Stool DNA - Cologuard Negative Comment:see care everywhere us Historical Provider HEALTH MAINTENANCE Final Result * MAMMOGRAPHY (06/11/2018) Mammogram Normal us Historical Provider HEALTH MAINTENANCE Final Result from Last 3 Months or Most Recently Relevant to Health Maintenance Insurance [employer] ACCESS CHOICE [employer] ACCESS CHOICE Care Teams Associate [employer] Retail Relationship Specialty Start Date End Date Maricruz Pina MD PCP - General Family Medicine 08/04/23 Carlee Laboy NP Nurse Practitioner Nurse Practitioner 04/10/22
--- OUTSIDE RECORDS SUMMARY | 2024-11-10 10:56 | XMS_ITS | Encounter Summary ---
Author Organization [facility] Healthcare Address [address] [place] [address] Care Team Providers Care Fur Dry Cleaner Name Role Phone Kaushal Lemus MD Primary Care Provider [phone] Kaushal Lemus MD Unavailable [phone] Reason for Visit * Diagnostic Imaging (Routine) - Closed Specialty Diagnoses / Procedures Referred By Manuel england Referred To Contact Procedures Breast Imaging Screening Outside Reference Nayely Vyas NP Phone: tel: fax: Referral ID Status Reason Start Date Expiration Date Visits Re quested Visits Authorized [id number] Closed 06/03/2022 07/03/2023 1 1 Encounter Details Date Type Department Care Team (Late st Contact Info) Description 12/03/2017 Hospital Encounter [facility] [address] [place] [phone] Social History Tobacco Use Types Packs/Day Years [...] on file Legal Sex Female 5:30 PM SAMPLE SEWER Gender Identity Female 06/12/2021 10:25 AM SAMPLE SEWER Sexual Orientation Straight 06/12/2021 10 :25 AM SAMPLE SEWER 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 There will be no report generated by a [facility] Radiologist. Narrative [facility]_MAMMO[facility] - 06/03/2022 7:50 AM SAMPLE SEWER EXAMINATION: Images For Reference Purposes Only us Nayely Vyas SOLUTION STRATEGIST IMG MAMMO PROCEDURES Fin al Result [facility] documented in this encounter Visit Diagnoses Not on filedocumented in this encounter Care Teams Fur Dry Cleaner Relationship Specialty Start Date End Date Kaushal Lemus MD PCP - General 10/10/15 11/12/19 Kaushal Lemus MD PCP - [place] Attributed PCP 10/05/17 1 06/09/21 documented as of this encounter
--- OUTSIDE RECORDS SUMMARY | 2024-11-10 10:56 | XMS_ITS | Continuity of Care Document ---
Author Organization [facility] [place] Address [address] [place] [address] [place] [address] Care Team Providers Care Marketing Project Lead Name Role Phone ERIC ROGERS Primary Care Provider Assessment No assessment recorded. Plan of Treatment Reminders Order Date Submit Date Provider Last Modified By Organization Details Last Modified Time Details Appointments IUD REMOVAL 2024 09:45A M SHERYL Mendoza Not available Not available Not available Lab beta-HCG, quantitat maribel, serum or plasma 2024 025 [facility] Outpatient Registration Lab/Ekg, [address], [place], [address], 11/10/2024 11:32:50 test, urine 2024 025 [facility], [address], [address], [place], [address], 11/10/2024 11:37:51 Referral None recorded. Procedures None recorded. Surgeries None recorded. Imaging None recorded. Medication Orders None recorded. Patient TargetsNo targets recorded. Patient InstructionsNo instructions recorded. Reason for Referral None Reported. Results Created Date Observation Date Name Description Value Unit Range Abnormal Flag Note LastModifiedBy Organization Detail LastModifiedTime 11/11/19 25 11/10/2024 pregn rozina test, urine HCG positi ve Not Available [place] [address], [place], [address], 11/10/2024 11:37:34 Result Notes None recorded. Problems Name Problem SNOMED Code Status Onset Date Resolution Date Notes Provider Name and Address Organization Details Recorded Time Urinary tract infectio us disease 14416888 Completed 201301/11/2021 Urinary Tract Infectio n;Record ed Elsewher e: No Locat ion: [facility] N Frank ce ID: 0001 Alfa lable Time: 05:45:00 PM Dorie tapia [facility] 1 12:30:31 Atypical squamous cells of undeterm ined signific ance on cervical Papanico laou smear [id number] Completed 201601/11/2021 Atyp squam cell of undet signfc cyto smr crvx (ASC-US) ;Recorde d Elsewher e: No [facility] [employer] pietro: N Frank ce ID: 0001 Alfa lable Time: 09:30:00 AM Dorie tapia [facility] 1 12:29:34 Surveill ance of contrace ption Completed 201501/11/2021 Encounte r for surveill ance of contrace ptives, unspecif ied;Logan rded Elsewher e: No Locat ion: [facility] S ource: [employer] pietro: N Frank ce ID: 0001 Alfa lable Time: 08:30:00 AM Dorie Cat [facility] 1 12:30:27 Blood leukocyt e number above referenc e range [id number] Completed 201601/11/2021 Elevated white blood cell count, unspecif ied;Logan rded Elsewher e: No Locat ion: [facility] S ource: [employer] pietro: N Bellati ce ID: 0001 Alfa lable Time: 08:30:00 AM Dorie tapia [facility] 1 12:30:05 Breast lump [id number] Completed 201301/09/2021 Breast Lump Or Mass;Rec orded Elsewher e: No [facility] [employer] pietro: N Bellati ce ID: 0001 Alfa lable Time: 05:45:00 PM Carmel tapia, [facility] 1 18:05:22 Screenin g for malignan t neoplasm of cervix Completed 201301/11/2021 Screenin g for malignan t neoplasm s of the cervix;R ecorded Elsewher e: No [facility]at [facility] N Bellati ce ID: 0001 Alfa lable Time: 05:45:00 PM Dorie Cat [facility], [facility] 1 12:30:18 Pregnanc y test negative [id number] Completed 201501/11/2021 Encounte r for pregnanc y test, result negative ;Recorde d Elsewher e: No Locat ion: [facility] N Bellati ce ID: 0001 Alfa lable Time: 10:15:00 AM Dorie Cat [facility] 1 12:30:17 Finding of regulari ty of menstrua l cycle Completed 201601/11/2021 Irregula r bleeding ;Recorde d Elsewher e: No Locat ion: [facility] S ource: [employer] pietro: N Practi ce ID: 0001 Alfa lable Time: 08:30:00 AM Dorie Cat regina [facility] 1 12:29:[address] Concept Completed 201601/11/2021 Encntr for systems mgr exam (general ) (routine ) w/o abn findings ;Recorde d Elsewher e: No [facility]at [facility]: [employer] pietro: N Bellati ce ID: 0001 Alfa lable Time: 01:00:00 PM Dorie Cat [facility] 1 12:30:23 Oral contrace ptive prescrib ed Completed 201301/11/2021 Counseli ng and prescrip tion for oral contrace ptive;Re corded Elsewher e: No Locat ion: [facility] S ource: [employer] pietro: N Practi ce ID: 0001 Alfa lable Time: 02:15:00 PM Dorie Cat [facility] 1 12:30:13 Insertio n of intraute rine contrace ptive device Completed 201601/11/2021 Encounte r for insertio n of intraute rine contrace ptive device;R ecorded Elsewher e: No Locat ion: [facility] S ource: [employer] pietro: N Practi ce ID: 0001 Alfa lable Time: 02:00:00 PM Doriekathy Cat [facility] 1 12:30:06 At increase d risk of sexually transmit sergio infectio n [id number] Completed 201101/09/2021 Contact with or exposure to venereal diseases ;Recorde d Elsewher e: No Locat ion: [facility] S ource: [employer] pietro: N Practi ce ID: 0001 Alfa lable Time: 06:00:00 PM Carmel Hernandez [facility] 1 18:05:19 Syphilis test finding [id number] Completed 201601/11/2021 Encntr screen for infectio ns w sexl mode of transmis s;Record ed Elsewher e: No Locat ion: [facility] S ource: [employer] pietro: N Practi ce ID: 0001 Alfa lable Time: 08:30:00 AM Dorie Cat [facility] 1 12:30:29 Clinical finding Completed 201601/11/2021 Presence of (intraut erine) contrace ptive device;R ecorded Elsewher e: No Locat ion: [facility] S ource: [employer] pietro: N Bellati ce ID: 0001 Alfa lable Time: 02:00:00 PM Dorie Maliktz [facility] 1 12:29:36 Vaginiti s and vulvovag initis Completed 201401/11/2021 Vaginiti s and vulvovag initis, unspecif ied;Logan rded Elsewher e: No Locat ion: [facility] S ource: [employer] pietro: N Practi ce ID: 0001 Alfa lable Time: 10:15:00 AM Dorie Cat [facility] 12:30:33 Leukocyt osis [id number] Completed 201301/11/2021 LEUKOCYT OSIS NOS;Logan rded Elsewher e: No Locat ion: [facility] S ource: [employer] pietro: N Bellati ce ID: 0001 Alfa lable Time: 05:45:00 PM Dorie Maliktz [facility] 12:30:08 Speciali zed medical examinat ion Completed 201101/11/2021 Gynecolo gical Examinat ion;Logan rded Elsewher e: No Locat ion: [facility] S ource: [employer] pietro: N Practi ce ID: 0001 Alfa lable Time: 06:00:00 PM Dorie Maliktz [facility] 12:30:25 Leukorrh ea [id number] Completed 201401/11/2021 Leukorrh ea, not specifie d as infectiv e;Record ed Elsewher e: No Locat ion: [facility] S ource: [employer] pietro: N Bellati ce ID: 0001 Alfa lable Time: 10:15:00 AM Dorie Cat [facility] 12:30:11 Disease [id number] Completed 201601/11/2021 Other specifie d conditio ns associat ed with female genital organs and menstrua l cycle;Re corded Elsewher e: No Locat ion: [facility] N Frank ce ID: 0001 Alfa lable Time: 08:30:00 AM Dorie Cat [facility], [facility] 1 12:29:41 Hyperten sive disorder [id number] Completed 201501/11/2021 Essentia l (primary ) hyperten jadiel;Rec orded Elsewher e: No Locat ion: [facility] N Frank ce ID: 0001 Alfa lable Time: 10:15:00 AM Dorie Cat [facility], [facility] 12:30:01 Finding of urine substanc e level Completed 201501/11/2021 Proteinu briana, unspecif ied;Logan rded Elsewher e: No Locat ion: [facility] Rand Marie ce ID: 0001 Alfa lable Time: 08:30:00 AM Dorie Emory [facility], [facility] 12:29:45 Contrace ptive sheath status [id number] Completed 201601/11/2021 IUD follow up;Recor ded Elsewher e: No Locat ion: [facility] N Frank ce ID: 0001 Alfa lable Time: 05:00:00 PM Dorie Cat [facility], [facility] 1 12:29:38 Screenin g for malignan t neoplasm of rectum Completed 201601/11/2021 Encounte r for screenin g for malignan t neoplasm of rectum;R ecorded Elsewher e: No Locat ion: [facility] S ource: [employer] pietro: N Practi ce ID: 0001 Alfa lable Time: 01:00:00 PM Dorie Cat [facility] 1 12:30:20 Adult health examinat ion Completed 201401/09/2021 ROUTINE MEDICAL EXAM;Rec orded Elsewher e: No Locat ion: [facility] S ource: [employer] pietro: N Bellati ce ID: 0001 Alfa lable Time: 11:00:00 AM Carmel tapia [facility] 1 18:05:05 Educatio n Completed 201601/09/2021 Encounte r for other general counseli ng and advice on contrace ption;Re corded Elsewher e: No Locat ion: [facility] S ource: [employer] pietro: N Bellati ce ID: 0001 Alfa lable Time: 05:45:00 PM Carmel tapia [facility] 1 18:05:25 Human papillom avirus deoxyrib onucleic acid detected , high risk on cervical specimen [id number] Completed 201501/11/2021 Cervical high risk HPV DNA test positive ;Recorde d Elsewher e: No Locat ion: [facility] S ource: [employer] pietro: N Bellati ce ID: 0001 Alfa lable Time: 10:15:00 AM Dorie Cat [facility] 1 12:29:48 Dysfunct ional uterine bleeding Completed 201101/11/2021 Other disorder s of menstrua tion and other abnormal bleeding from female genital tract;Re corded Elsewher e: No Locat ion: [facility] S ource: [employer] pietro: N Bellati ce ID: 0001 Alfa lable Time: 06:00:00 PM Dorie tapia [facility] 1 12:29:40 Infectio n screenin g Completed 201501/11/2021 Encounte r for screenin g for oth infec/pa rastc diseases ;Recorde d Elsewher e: No Locat ion: [facility] S ource: [employer] pietro: N Practi ce ID: 0001 Alfa lable Time: 10:15:00 AM Dorie tapia [facility] 1 12:30:03 Pelvic and perineal pain [id number] Completed 201601/11/2021 Pelvic and perineal pain;Rec orded Elsewher e: No Locat ion: [facility] S ource: [employer] pietro: N Practi ce ID: 0001 Alfa lable Time: 04:30:00 PM Dorie tapia [facility] 1 12:30:15 Ill-defi morena intestin al infectio n Completed 201101/11/2021 No Show Fee;Prac valencia ID: 0001 Dorie tapia [facility] 1 12:29:59 Problem Notes None recorded. Procedures Surgical History Date Name Laterality Status Provider Name and Address Organization Details Recorded Time 09/26/19 25 Date of Last Mammogram completed Michelle Arita [facility] 11/10/2024 11:05:20 08/19/19 24 Date of Last Pap Smear completed Chelo Cruz [facility] 09/01/2024 09:23:44 01/18/20 22 Wart Topical Procedure completed Carlee Laboy MESHA- [address], [place], [address], [facility] 01/17/2022 13:34:08 04/16/20 21 Date of Last Colonoscopy completed Dorie Cat [facility] 01/17/2022 12:06:08 02/16/20 21 Wart Topical Procedure completed SHERYL Hutchison-TOMMY [address], [place], [address], [facility] 02/15/2021 12:27:21 02/02/20 21 Wart Topical Procedure [facility] [address], [place], [address], [facility] 02/01/2021 09:32:35 01/18/20 21 Wart Topical Procedure completed Annmarie Pastrana CNM [address], [place], [address], [facility] 01/17/2021 12:08:54 11/07/19 17 Colposcopy completed [facility] 01/14/2021 14:40:25 11/07/19 17 Colposcopy completed [facility] 01/14/2021 14:47:46 08/16/19 11 section completed [facility] 01/14/2021 14:52:14 11/10/19 07 section completed [facility] 01/14/2021 14:52:07 12/30/19 03 section completed [facility] 01/14/2021 14:52:00 Imaging Results None recorded. Procedure Notes None recorded. Medical Equipment None Reported. Allergies Allergen ID Allergen Name Allergen Category Reaction Reaction Severity Criticality Documentation Date Start Date Code Code System Note Provider Name and Address Organization Details Recorded Time Substance with sulfonami de structure and antibacte rial mechanism of action (substanc e) medicatio n itching mild low 07/11/2022 87162 8003 SNOMED Carlee heaton [facility] [address], [place], [address], [facility] 11:39:59 9687 codeine medicatio n Not available Not available Not available 05/24/2020 2670 RxNorm Comme nt: Locat ion: Toya Sims r; Not Available [facility] 0 14:14:38 9688 fluconazo le medicatio n Not available Not available Not available 05/24/2020 4450 RxNorm Comme nt: Locat ion: Toya Sims r Cau sativ e Agent : Diflu can; Not Available [facility] 0 14:14:38 9689 Product containin g penicilli n (product) medicatio n Not available Not available Not available 05/24/2020 05838 8001 SNOMED Comme nt: Locat ion: Toya Sims r; Not Available [facility] 0 14:14:38 Medications Name Sig Start Date Stop Date Status Note LastModified by Organization Details LastModified Time Mirena 21 mcg/24 hr (up to 8 years) 52 mg intrauter ine device Take by intraute rine route. 2016 active mirena inserted 7 Not Available Not Available Not Available citalopra m 40 mg tablet TK 1 T PO D 01/17 completed Not Available Not Available Not Available Necon 35 (28) 1 mg-35 mcg tablet TAKE 1 TABLET BY ORAL ROUTE EVERY DAY 08/20 completed Prescrib ed Elsewher e: No Locat ion: Linnette Low [facility] odify By: abel hawk DateTime : 08/07/19 16 09:53:07 AM Not Available Not Available Not Available citalopra m 10 mg/5 mL oral solution take 10 millilit er by oral route every day 01/09 completed Prescrib ed Elsewher e: Yes Loca tion: [facility]ette Low [facility] odify By: hernandez hawk DateTime : 08/24/19 19 10:45:00 AM Not Available Not Available Not Available Zithromax Z-Mauricio 250 mg tablet take 2 tablet by oral route every day for 1 day then 1 tablet (250 mg) by oral route once daily for 4 days 02/12 completed Prescrib ed Elsewher e: No Locat ion: L[facility]ette Low [facility] odify By: abel hawk DateTime : 02/09/20 15 10:15:00 AM Not Available Not Available Not Available Diflucan 150 mg tablet take 1 tablet by oral route once 02/08 completed Prescrib ed Elsewher e: No Locat ion: Linnette thompson [facility] odify By: dolores riojas DateTime : 11/20/19 15 11:16:34 AM Not Available Not Available Not Available Macrobid 100 mg capsule take 1 capsule by oral route every 12 hours for 10 days with food 08/28 completed Prescrib ed Elsewher e: No Locat ion: Linnette thompson [facility] odify By: abel hawk DateTime : 08/20/19 17 08:30:00 AM Not Available Not Available Not Available alprazola m 0.25 mg tablet 09/01 completed Not Available Not Available Not Available citalopra m 20 mg tablet TAKE 1 TABLET BY MOUTH DAILY active Not Available Not Available No t Available Metrogel Vaginal 0.75 % (37.5 mg/5 gram) insert 1 applicat orful by vaginal route every day at bedtime 05/17 completed Prescrib ed Elsewher e: No Locat ion: Linnette thompson [facility] odify By: thelma Hurley ntaylin DateTime : 11/09/19 18 12:30:00 PM Not Available Not Available Not Available imiquimod 5 % topical cream packet APPLY 1 PACKET TO THE AFFECTED AREA 5 TIMES PER WEEK 09/01 completed Not Available Not Available Not Available cephalexi n 500 mg capsule TAKE 1 CAPSULE BY MOUTH EVERY 12 HOURS WITH MEALS FOR 7 DAYS 08/18 completed Not Available Not Available Not Available Cipro 500 mg tablet take 1 tablet by oral route every 12 hours 08/19 completed Prescrib ed Elsewher e: No Locat ion: Linnette thompson [facility] odify By: [email or web address] Ranjan forbes DateTime : 12/13/19 16 08:30:00 AM Not Available Not Available Not Available Terazol 7 0.4 % vaginal cream insert 1 applicat orful by vaginal route every day for 7 days at bedtime 11/14 completed Prescrib ed Elsewher e: No Locat ion: Linnette thompson [facility] odify By: thelma Hurley nter DateTime : 11/09/19 18 12:30:00 PM Not Available Not Available Not Available Autoject 2 subcutane ous insulin pen 08/19 completed Prescrib ed Elsewher e: Yes Loca tion: Linnette thompson [facility] odify By: sharonda Woodruff r DateTime : 10/13/19 12 10:16:19 PM Not Available Not Available Not Available Bactrim DS 800 mg-160 mg tablet take 1 tablet by oral route every 12 hours 10/27 completed Prescrib ed Elsewher e: No Locat ion: Linnette thompson [facility] odify By: sharonda Woodruff r DateTime : 08/25/19 17 01:42:38 PM Not Available Not Available Not Available olmesarta n 20 mg tablet TAKE 1 TABLET BY MOUTH EVERY DAY active Not Available Not Available No t Available Humalog U-100 Insulin 100 unit/mL subcutane ous cartridge inject by subcutan eous route per prescrib er's instruct ions. Insulin dosing requires individu alizatio n. active Prescrib ed Elsewher e: Yes Loca tion: Linnette thompson [facility] odify By: sharonda Woodruff r DateTime : 10/28/19 17 01:00:00 PM Not Available Not Available Not Available insulin lispro (U-100) 100 unit/mL subcutane ous pen ADMINIST ER UP TO 15 UNITS UNDER THE SKIN THREE TIMES DAILY BEFORE MEALS active Not Available Not Available No t Available Brooke 0.35 mg tablet take 1 tablet by oral route every day 12/14 completed Prescrib ed Elsewher e: No Locat ion: L[facility]ette thompson [facility] odify By: thelma Hurley nter DateTime : 08/21/19 16 10:15:00 AM Not Available Not Available Not Available Novolog FlexPen U-100 Insulin aspart 100 unit/mL (3 mL) subcutane ous ADMINIST ER 15 UNITS UNDER THE SKIN THREE TIMES DAILY BEFORE MEALS active Not Available Not Available No t Available clonazepa m 0.25 mg disintegr ating tablet DISSOLVE 1 TABLET ON THE TONGUE TWICE DAILY 08/18 completed Not Available Not Available Not Available rosuvasta tin 20 mg tablet active Not Available Not Available Not Available BD Ultra-Fin e Mini Pen Needle 31 gauge x 3/16 USE 1 NEEDLE FOUR TIMES DAILY active Not Available Not Available No t Available Lo Loestrin Fe 1 mg-10 mcg (24)/10 mcg (2) tablet take 1 tablet by oral route every day 08/19 completed Prescrib ash Ruby e: No Locat ion: Linnette thompson [facility] M odify By: [email or web address] Ranjan r DateTime : 12/13/19 16 08:30:00 AM Not Available Not Available Not Available Tresiba FlexTouch U-100 insulin 100 unit/mL (3 mL) subcutane ous pen ADMINIST ER 28 UNITS UNDER THE SKIN DAILY active Not Available Not Available No t Available Ozempic 0.25 mg or 0.5 mg (2 mg/1.5 mL) subcutane ous pen injector INJECT 0.5 MG UNDER THE SKIN ONCE WEEKLY 08/18 completed Not Available Not Available Not Available BD Sarah 2nd Gen Pen Needle 32 gauge x 5/32 USE THREE TIMES DAILY active Not Available Not Available No t Available Baqsimi 3 mg/actuat ion nasal spray USE 1 SPRAY INTO ONE NOSTRIL NEEDED FOR HYPOGLYC EMIA 09/01 completed Not Available Not Available Not Available FreeStyle Allyn 2 Sensor kit CHANGE EVERY 14 DAYS active Not Available Not Available No t Available Ozempic 1 mg/dose (4 mg/3 mL) subcutane ous pen injector INJECT 1 MG UNDER THE SKIN EVERY 7 DAYS 09/01 completed Not Available Not Available Not Available Paxlovid 300 mg (150 mg x 2)-100 mg tablets in a dose pack FOLLOW PACKAGE DIRECTIO NS TWICE DAILY 09/01 completed Not Available Not Available Not Available Ozempic 2 mg/dose (8 mg/3 mL) subcutane ous pen injector INJECT 2 MG UNDER THE SKIN EVERY 7 DAYS active Not Available Not Available No t Available FreeStyle Allyn 3 Plus Sensor device CHANGE SENSOR EVERY 15 DAYS active Not Available Not Available No t Available Vitals Date Recorded Body height Body mass index (BMI) Body weight Systolic blood pressure Diastolic blood pressure Provider Name and Address Organization Details Last Updated DateTime 11/10/2024 172.72 cm 22 kg/m2 37308.89 g 127 mm[Hg] 81 mm[Hg] Michelle Arita [facility] 11:04:06 Social History Question Answer Notes LastModified by Organizat ion Details LastModified Time Tobacco Smoking Status Never Smoker ALMA CARR regina, [facility] 07/11/2022 11:26:24 If You Are , What Was Your Level Of Alcohol Consumption Prior To ? None Information not available 07/11/2022 Are You Blind Or Do You Have Difficulty Seeing? No Information n ot available 01/17/2021 What Is Your Level Of Caffeine Consumption? Occasional [email or web address] Information not available 01/17/2021 How Much Tobacco Do You Chew? None [email or web address] Information not available 01/17/2022 In The 14 Days Before Symptom Onset, Have You Had Close Contact With A Laboratory-confirm ed COVID-19 While That Case Was Ill? No [email or web address] Information n ot available 01/17/2021 In The 14 Days Before Symptom Onset, Have You Had Close Contact With A Person Who Is Under Investigation For COVID-19 While That Person Was Ill? No [email or web address] Information not available 01/17/2021 Have You Been To An Area Known To Be High Risk For COVID-19? No [email or web address] Information not available 01/17/2021 Are You Deaf Or Do You Have Serious Difficulty Hearing? No [email or web address] Information not available 01/17/2021 What Type Of Diet Are You Following? DIABETIC [email or web address] Information n ot available 02/01/2021 What Is The Highest Grade Or Level Of School You Have Completed Or The Highest Degree You Have Received? [id number] [email or web address] Information not available 01/17/2022 Have You Ever Been Counseled For Unhealthy Alcohol Use? No Information not available 07/11/2022 Do You Use Your Seat Belt Or Car Seat Routinely? Yes [email or web address] Information not available 01/17/2021 Do You Have Smoke And Carbon Monoxide Detectors In Your Home? Yes [email or web address] Information not available 01/17/2021 How Much Tobacco Do You Smoke? No [email or web address] Information not available 01/17/2022 Do You Use Sunscreen Routinely? Yes [email or web address] Information not available 01/17/2021 Has Tobacco Cessation Counseling Been Provided? No Information not available 07/11/2022 Have You Used IV Drugs? No [email or web address] Information not available 01/17/2022 Do You Have Difficulty Walking Or Climbing Stairs? No Information not available 07/11/2022 Sex: Female Functional Status Question Answer Note LastModified by Organizat ion Details LastModified Time Do you use any illicit or recreational drugs? No [email or web address] Information not available 01/17/2021 Do you or have you ever used any other forms of tobacco or nicotine? No Information not available 07/11/2022 What is your level of alcohol consumption? Occasional [email or web address] Information not available 01/17/2021 Are you able to walk? YESWOREST [email or web address] Information not available 01/17/2021 Are you able to care for yourself? Yes Information n ot available 07/11/2022 Do you have difficulty dressing or bathing? No Information not available 07/11/2022 What is your exercise level? Occasional [email or web address] Information not available 02/01/2021 Mental Status Question Answer Note LastModified by Organization D etails LastModified Time Do you feel stressed (tense, restless, nervous, or anxious, or unable to sleep at night)? [id number] [email or web address] Information not available 01/17/2021 Family History Relationship Description Onset Age of this Age Resolved Age Notes LastModified by Organization Details LastModified Time Mother Malignant neoplasm of ovary [email or web address] Not available 2020 13:13:59 Mother Malignant tumor of cervix [email or web address] Not available 2020 13:14:15 Paternal Grandmother Malignant tumor of breast [email or web address] Not available 2020 13:14:30 Maternal Grandmother Malignant tumor of breast [email or web address] Not available 01/14 15:24:19 Medical History Condition Response Other N Blood Transfusion N Dermatologic Disorders N Gestational Diabetes N Anxiety Disorder N Autoimmune disease N Arthritis N Polyps N Infertility N Acid Reflux (GERD) N Cancer N Varicosities N Stroke N Neurologic/Epilepsy N Fibromyalgia N Headaches N Kidney Disease N Heart Problems N Kidney or Bladder Problems N Eating Disorder N Art (IVF or FET) N Hepatitis/Liver Disease N No Past Medical History N Urinary Tract Infection N Asthma N Trauma/Violence N Thrombophilias N Allergies (Food, seasonal, environmental ) N Breast Cancer N Drug/Latex Allergies/Reactions N Lung Disease N Defects or Inherited Disease N Breast Problem N Hematologic disorders N Anesthesia Complications N History of STI Y Deep Vein Thrombosis N Polycystic ovary syndrome N History of abnormal pap Y Endometriosis N High Cholesterol Y Thyroid Problems N GI Problems N Anemia N Psychiatric Illness N Ovarian Cancer N Diabetes Y Pulmonary (TB, Asthma) N Eczema N Abuse/Domestic Violence N Depression/ depression N Heart Disease N Pre-Eclampsia N Hypertension Y Osteoporosis N Gynecological History Statement/Question Response Abnormal Pap Y Date of Last Mammogram 09/25/2024 Date of LMP 10/15/2020 Was last menstrual period normal Y STIs/STDs Y Colposcopy 11/06/2016 Current Control Method IUD Date of Last Colonoscopy 04/16/2021 Sexually Active? Y Menses Monthly N Date of DEXA bone scan Date of Last Pap Smear 08/19/2023 Sexual Problems? N LMP Approximate 08/23/2018 Obstetrics History GPAL:G 5 P 3 0 2 3 Type Value Full Term 3 Spontaneous 2 Living 3 Total 5 Past Encounters Encounter ID Performer Location Encounter Start Date Encounter Closed Date Diagnosis/Indication Diagnosis SNOMED-CT Code Diagnosis ICD10 Code Diagnosis Note [id number] SHERYL Mendoza [place] [address] [address] 11/10/2024 10:49:51 11/10/2024 11:50:32 test positive 321670759 Z32.01 urine test done today with faint positive resultshe has not had IC since May, partner has a vasectomyo rder given for bhcgif neg will return next week for removal/re insertionw ill update pt with results when availableq uestions answered, precaution s reviewed Time spent in visit is a total of 20 mins with at least 50% of visit consisting of counseling and review of plan of care. Contracept ion care management [id number] Z30.9 Health Concerns Section Related Observation LastModified by Organization Detai ls LastModified Time None Recorded Concern Status LastModified by Organization Details LastModified Time None Recorded Payers Encounter Date Sequence Insurance Name Policy Number Policy Flores Covered Member ID Flores Member ID Guarantor Name 11/10/2024 1 KAREN-BOYD (PPO) [id number] Jayleen Laguna [id number] Jayleen Laguna Notes Date Note Type Note Provider Name and Address Organization Details Recorded Time 11/10/2024 text/html 48yopresents for Mirena IUD removal/replacem entcurrent IUD inserted 02/17/2017she has not had IC since May, her partner also has a vasectomy SHERYL Mendoza [address], [place], [address], [facility] 11/10/2024 11:38:19 OBGyn Episode No OBEpisode recorded.
--- OUTSIDE RECORDS SUMMARY | 2024-11-10 10:56 | XMS_ITS | Data Portability ---
Author Organization [facility] Address [address] [place] [address] [place] [address] Care Team Providers Care Plodder Operator Name Role Phone ERIC ROGERS Primary Care Provider [phone] Assessment Encounter Date Assessment Date Assessment LastModified by Organization Details LastModified Time 01/17/2022 01/17/2022 Annual gynecological exam performed. Patient will come back in a year unless there are new symptoms. [email or web address] Not available 01/17/2022 12:03:38 08/19/2023 08/19/2023 Annual gynecological exam performed. Patient will come back in a year unless there are new symptoms. [email or web address] Not available 08/19/2023 17:43:42 09/01/2024 09/01/2024 Annual gynecological exam performed. Patient will come back in a year unless there are new symptoms. [email or web address] Not available 09/01/2024 09:21:59 Plan of Treatment Reminders Order Date Submit Date Provider Last Modified By Organization Details Last Modified Time Details Appointments IUD REMOVAL 2024 09:45A SHERYL Adams Not available Not available Not available Lab beta-HCG, quantitat maribel, serum or plasma 2024 025 [facility] Outpatient Registration Lab/Ekg, [address], [place], [address], 11/10/2024 11:32:50 test, urine 2024 025 sar[facility], [address], [address], [place], [address], 11/10/2024 11:37:51 pap, IG + HR HPV - HPV regardles s but if HPV is positive need subtyping 16,18/45 2024 025 [facility] (Lab), [address], [place], [address], 09/06/2024 18:11:45 Referral None recorded. Procedures None recorded. Surgeries None recorded. Imaging MAMMO, diagnosti c, digital, bilateral - bilateral breast lumps, upper outer quadrants [address] [facility], [address], [place], [address], 09/25/2024 11:05:09 US, breast, bilateral , complete 2024 025 [email or web address] [facility], [address], [address], [place], [address], 10/01/2024 11:11:36 MAMMO, screening , bilateral 2023 024 [email or web address] [facility], [address], [address], [place], [address], 11/30/2023 12:05:26 Medication Orders Keflex 500 mg capsule 2022 023 [id number], [address], [place], [place], [id number], 08/19/2023 17:44:37 Patient TargetsNo targets recorded. Patient InstructionsNo instructions recorded. Reason for Referral None Reported. Results Created Date Observation Date Name Description Value Unit Range Abnormal Flag Note LastModifiedBy Organization Detail LastModifiedTime 01/20/20 22 01/19/2022 IMAGE GUIDE D PAP AND HPV REGAR DLESS image guided Pap, HPV regardless of Pap result SEE RESULT S BELOW CASE REPOR T: Cytol ogy Gynec ologi cathy Repor t Case: [id number] Autho alexandra sanchez Provi jose m: Chris hays , Jakob Pisano cted: 01/19 0832 FOREST ECOLOGY PROFESSOR Order ing Locat ion: [place] Patho logcristel Recei christopher: 01/20 0132 First Scree n: Radha Camejo , [place] Speci men: Scree manuela Pap - Image d, Cervi x STATE MENT OF ADEQU ACY: Satis facto ry for evalu ation Trans forma tion zone compo nent prese nt FINAL DIAGN OSIS: Negat maribel for Intra epith elial Lesio n or Leonard daniels (NIL) . Elect kimberley linn sepideh d by Radha Camejo , CT on 2021 at 11:01 AM ----- ----- ----- ----- ----- ----- ----- ----- ----- ----- ----- ----- ----- ----- ----- ----- ----- ---- HPV RESUL TS: HPV mRNA E6/E7 : No HPV mRNA Detec sergio NOTE: This high risk HPV mRNA assay detec ts fourt een high- risk HPV types (16, 18, 31, 33, 35, 39, 45, 51, 52, 56, 58, 59, 66, 68) witho ut diffe renti ation . COMME NT: Note: This speci men was revie wed by a Cytot echno logis t and/o r Patho logis t (as indic ated in this repor t) after evalu ation using the Thinp rep Imagi ng Syste m. CLINI CATHY INFOR MATIO N: Menst rual Statu s: LMP (if appli cable ): Clini cathy Histo ry/Pr eviou s Pap: Type of Neopl cem (if appli cable ): Signi fican t Clini cathy Findi ngs: Other Histo ry: Hormo hammad (if appli cable ): PAP EDUCA ANGEL L NOTE: The Pap Test is a scree manuela test with an inher ent false negat maribel rate. Liqui d-bas ed sampl ing may decre ase, but will not elimi kierra, false negat maribel resul ts. A negat maribel resul t does not precl ude the prese nce and/o r devel opmen t of disea se, since the prese nce of abnor mal cells in the sampl e depen ds on the locat ion of the lesio n and sampl ing techn ique. Jono nued regul ar scree manuela is the best metho d of cance r preve ntion . If repor sergio cytol ogic findi ng do not corre late with physi cathy and/o r histo rical findi ngs, furth er inves tigat ion is recom taisha d, as clini kinga gamez nted. Not Available [facility] Infectious Disease [address] [place], [address], 01/23/2022 12:03:18 08/19/19 24 08/19/2023 IMAGE GUIDE D PAP AND HPV REGAR DLESS image guided Pap, HPV regardless of Pap result SEE RESULT S BELOW CASE REPOR T: Cytol ogy Gynec ologi cathy Repor t Case: [id number] Autho alexandra sanchez Provi jose m: Dustin Chi Colle cted: 08/18 1715 FOREST ECOLOGY PROFESSOR Order ing Locat ion: [place] Patho logy Recei christopher: 08/19 0552 First Scree n: Suad Caraballo , [place] Patho logis t: Elizabeth Davies MD Speci men: Scree manuela Pap - Image d, Cervi x STATE MENT OF ADEQU ACY: Satis facto ry for evalu ation Trans forma tion zone compo nent prese nt FINAL DIAGN OSIS: Negat maribel for Intra epith elial Lesio n or Maljoanne frances (NIL) . Infla mmato ry cell abernathy es (incl udes typic al repai r). Elect kimberley linn sepideh d by Elizabeth Davies MD on 2023 at 11:23 AM ----- ----- ----- ----- ----- ----- ----- ----- ----- ----- ----- ----- ----- ----- ----- ----- ----- ---- HPV RESUL TS: HPV mRNA E6/E7 : No HPV mRNA Detec sergio NOTE: This high risk HPV mRNA assay detec ts fourt een high- risk HPV types (16, 18, 31, 33, 35, 39, 45, 51, 52, 56, 58, 59, 66, 68) witho ut diffe renti ation . COMME NT: This speci men was revie wed by a Cytot echno logis t and/o r Patho logis t (as indic ated in this repor t) after evalu ation using the Thinp rep Imagi ng Syste m. CLINI CATHY INFOR MATIO N: Menst rual Statu s: LMP (if appli cable ): Clini cathy Histo ry/Pr eviou s Pap: Type of Neopl cem (if appli cable ): Signi fican t Clini cathy Findi ngs: Other Histo ry: Hormo hammad (if appli cable ): PAP EDUCA ANGEL L NOTE: The Pap Test is a scree manuela test with an inher ent false negat maribel rate. Liqui d-bas ed sampl ing may decre ase, but will not elimi kierra, false negat maribel resul ts. A negat maribel resul t does not precl ude the prese nce and/o r devel opmen t of disea se, since the prese nce of abnor mal cells in the sampl e depen ds on the locat ion of the lesio n and sampl ing techn ique. Jono nued regul ar scree manuela is the best metho d of cance r preve ntion . If repor sergio cytol ogic findi ng do not corre late with physi cathy and/o r histo rical findi ngs, fur er inves tigat ion is recom taisha d, as clini kinga gamez nted. Not Available [facility] (Lab) [address], [place], [address], 08/25/2023 12:26:37 09/02/19 25 09/01/2024 IMAGE GUIDE D PAP AND HPV REGAR DLESS image guided Pap, HPV regardless of Pap result SEE RESULT S BELOW CASE REPOR T: Cytol ogy Gynec ologi cathy Repor t Case: [id number] Autho alexandra sanchez Provi jose m: Johanna Sanz, MESHA Robert cted: 09/01 1140 Order ing Locat ion: [place] Patho logy Recei christopher: 09/02 0132 First Scree n: Ladi Babin Speci men: Georgejay roy Pap - Image d, Cervi x STATE MENT OF ADEQU ACY: Satis facto ry for evalu ation Trans forma tion zone compo nent prese nt ----- ----- ----- ----- ----- ----- ----- ----- ----- ----- ----- ----- ----- ----- ----- ----- ----- ---- FINAL DIAGN OSIS: Negat maribel for Intra epith elidustin villeda or Leonard daniels ([facility]) . Elect kimberley davis by Ladi Babin on 025 at 1707 CDT ----- ----- ----- ----- ----- ----- ----- ----- ----- ----- ----- ----- ----- ----- ----- ----- ----- ---- HPV RESUL TS: HPV mRNA E6/E7 : No HPV mRNA Detec sergio NOTE: This high risk HPV mRNA assay detec ts fourt een high- risk HPV types (16, 18, 31, 33, 35, 39, 45, 51, 52, 56, 58, 59, 66, 68) witho ut diffe renti ation . COMME NT: This speci men was revie wed by a Cytot echno logis t and/o r Patho logis t (as indic ated in this repor t) after evalu ation using the Thinp rep Imagi ng Syste m. CLINI CATHY INFOR MATIO N: Menst rual Statu s: LMP (if appli cable ): Clini cathy Histo ry/Pr eviou s Pap: Type of Neopl cem (if appli cable ): Signi fican t Clini cathy Findi ngs: Other Histo ry: Hormo hammad (if appli cable ): PAP EDUCA ANGEL L NOTE: The Pap Test is a scree manuela test with an inher ent false negat maribel rate. Liqui d-bas ed sampl ing may decre ase, but will not elimi kierra, false negat maribel resul ts. A negat maribel resul t does not precl ude the prese nce and/o r devel opmen t of disea se, since the prese nce of abnor mal cells in the sampl e depen ds on the locat ion of the lesio n and sampl ing techn ique. Jono nued regul ar scree manuela is the best metho d of cance r preve ntion . If repor sergio cytol ogic findi ng do not corre late with physi cathy and/o r histo rical findi ngs, furth er inves tigat ion is recom taisha d, as clini kinga warra nted. Not Available [facility] (Lab) [address], [place], [address], 09/06/2024 18:11:45 11/11/19 25 11/10/2024 pregn rozina test, urine HCG positi ve Not Available [facility] [address], [place], [address], 11/10/2024 11:37:34 03/31/20 22 03/30/2022 MAMMO , scree manuela, bilat eral No observ ation record ed. [email or web address] [facility] [address], [place], [address], 04/02/2022 09:22:39 03/31/2003/30/2022 MAMMO , scree manuela, bilat eral No observ ation record ed. [address] [facility] [address], [place], [address], 04/02/2022 09:33:57 04/02/2003/30/2022 MAMMO , scree manuela, bilat eral No observ ation record ed. [address] [facility] [address], [place], [address], 04/09/2022 13:14:46 04/03/2004/03/2022 US, raad t, unila teral No observ ation record ed. [address], [place], [address], 04/09/2022 16:07:59 06/03/2003/30/2022 MAMMO , scree manuela, bilat eral No observ ation record ed. [address], [place], [address], 06/18/2022 10:09:40 12/06/19 24 12/06/2023 MAMMO , scree manuela, bilat eral No observ ation record ed. [facility] [address], [place], [address], 12/17/2023 11:31:01 12/07/19 24 12/06/2023 MAMMO , scree manuela, bilat eral No observ ation record ed. [facility] [address], [place], [address], 12/17/2023 11:31:01 09/26/19 25 09/25/2024 MAMMO , diagn ostic , digit al, bilat eral No observ ation record ed. [facility] [address], [place], [address], 09/25/2024 13:10:24 Result Notes None recorded. Problems Name Problem SNOMED Code Status Onset Date Resolution Date Notes Provider Name and Address Organization Details Recorded Time Urinary tract infectio us disease 98479021 Completed 201301/11/2021 Urinary Tract Infectio n;Record ed Elsewher e: No [facility]: EHR Strategic Procurement Manager pietro: N Practi ce ID: [id number] Alfa lable Time: 05:45:00 PM Dorie tapia [facility] 12:30:31 Atypical squamous cells of undeterm ined signific ance on cervical Papanico laou smear [id number] Completed 201601/11/2021 Atyp squam cell of undet signfc cyto smr crvx (ASC-US) ;Recorde d Elsewher e: No Locat ion: [facility] S ource: EHR Strategic Procurement Manager pietro: N Practi ce ID: [id number] [id number] lable Time: 09:30:00 AM Dorie tapia [facility] 12:29:34 Surveill ance of contrace ption Completed 201501/11/2021 Encounte r for surveill ance of contrace ptives, unspecif ied;Logan rded Elsewher e: No Locat ion: [facility] S ource: EHR Strategic Procurement Manager pietro: N Practi ce ID: [id number] [id number] lable Time: 08:30:00 AM Dorie tapia [facility] 1 12:30:27 Blood leukocyt e number above referenc e range [id number] Completed 201601/11/2021 Elevated white blood cell count, unspecif ied;Logan rded Elsewher e: No [facility]at [facility] S ource: EHR Strategic Procurement Manager pietro: N Practi ce ID: [id number] Alfa lable Time: 08:30:00 AM Dorie Maliktz [facility], [facility] 1 12:30:05 Breast lump [id number] Completed 201301/09/2021 Breast Lump Or Mass;Rec orded Elsewher e: No [facility]at [facility] N Bellati ce ID: [id number] Alfa lable Time: 05:45:00 PM Carmel tapia, [facility] 1 18:05:22 Screenin g for malignan t neoplasm of cervix Completed 201301/11/2021 Screenin g for malignan t neoplasm s of the cervix;R ecorded Elsewher e: No Locat ion: [facility] S ource[facility]: N Bellati ce ID: [id number] Alfa lable Time: 05:45:00 PM Dorie Cat [facility] 1 12:30:18 Pregnanc y test negative [id number] Completed 201501/11/2021 Encounte r for pregnanc y test, result negative ;Recorde d Elsewher e: No Locat ion: [facility] S ource[facility]: N Bellati ce ID: [id number] Alfa lable Time: 10:15:00 AM Dorie Cat [facility] 1 12:30:17 Finding of regulari ty of menstrua l cycle Completed 201601/11/2021 Irregula r bleeding ;Recorde d Elsewher e: No Locat ion: [facility] S ource: EHR Strategic Procurement Manager pietro: N Bellati ce ID: [id number] Alfa lable Time: 08:30:00 AM Dorie Cat [facility] [address] 12:29:[address] Concept Completed 201601/11/2021 Encntr for intermediate project manager exam (general ) (routine ) w/o abn findings ;Recorde d Elsewher e: No Locat ion: Rosas jay [facility] S ource: EHR Strategic Procurement Manager pietro: N Practi ce ID: [id number] Alfa lable Time: 01:00:00 PM Dorie tapia [facility] 1 12:30:23 Oral contrace ptive prescrib ed Completed 201301/11/2021 Counseli ng and prescrip tion for oral contrace ptive;Re corded Elsewher e: No Locat ion: [facility] S ource: EHR Strategic Procurement Manager pietro: N Practi ce ID: [id number] Alfa lable Time: 02:15:00 PM Dorie tapia [facility] 1 12:30:13 Insertio n of intraute rine contrace ptive device Completed 201601/11/2021 Encounte r for insertio n of intraute rine contrace ptive device;R ecorded Elsewher e: No Locat ion: [facility] S [facility]ce[facility]: N Practi ce ID: [id number] Alfa lable Time: 02:00:00 PM Dorie tapia [facility] 1 12:30:06 At increase d risk of sexually transmit sergio infectio n [id number] Completed 201101/09/2021 Contact with or exposure to venereal diseases ;Recorde d Elsewher e: No Locat ion: [facility] S ource: EHR Strategic Procurement Manager pietro: N Practi ce ID: [id number] Alfa lable Time: 06:00:00 PM Carmel Mary tapia [facility] 1 18:05:19 Syphilis test finding [id number] Completed 201601/11/2021 Encntr screen for infectio ns w sexl mode of transmis s;Record ed Elsewher e: No Locat ion: [facility] S ource: EHR Strategic Procurement Manager pietro: N Practi ce ID: [id number] Alfa lable Time: 08:30:00 AM Dorie tapia, [facility] 1 12:30:29 Clinical finding Completed 201601/11/2021 Presence of (intraut erine) contrace ptive device;R ecorded Elsewher e: No Locat ion: [facility] S ource: EHR Strategic Procurement Manager pietro: N Practi ce ID: [id number] Alfa lable Time: 02:00:00 PM Dorie tapia, [facility] 1 12:29:36 Vaginiti s and vulvovag initis Completed 201401/11/2021 Vaginiti s and vulvovag initis, unspecif ied;Logan rded Elsewher e: No Locat ion: [facility] S ource: EHR Strategic Procurement Manager pietro: N Practi ce ID: [id number] Alfa lable Time: 10:15:00 AM Dorie tapia, [facility] 1 12:30:33 Leukocyt osis [id number] Completed 201301/11/2021 LEUKOCYT OSIS NOS;Logan rded Elsewher e: No Locat ion: [facility] S ource: EHR Strategic Procurement Manager pietro: N Practi ce ID: [id number] Alfa lable Time: 05:45:00 PM Dorie tapia [facility] 1 12:30:08 Speciali zed medical examinat ion Completed 201101/11/2021 Gynecolo gical Examinat ion;Logan rded Elsewher e: No Locat ion: [facility] S ource: EHR Strategic Procurement Manager pietro: N Practi ce ID: [id number] Alfa lable Time: 06:00:00 [facility] 12:30:25 Leukorrh ea [id number] Completed 201401/11/2021 Leukorrh ea, not specifie d as infectiv e;Record ed Elsewher e: No Locat ion: [facility] S ource: [facility]: N Frank ce ID: [id number] Alfa lable Time: 10:15:00 AM Dorie Emory regina [facility] 12:30:11 Disease [id number] Completed 201601/11/2021 Other specifie d conditio ns associat ed with female genital organs and menstrua l cycle;Re corded Elsewher e: No Locat ion: [facility] S ource: [facility] pietro: N Bellati ce ID: 0001 Alfa lable Time: 08:30:00 AM Dorie Emory [facility], [facility] 12:29:41 Hyperten sive disorder [id number] Completed 201501/11/2021 Essentia l (primary ) hyperten jadiel;Rec orded Elsewher e: No Locat ion: [facility] S ource: [facility] pietro: N Bellacharlette ce ID: [id number] Alfa lable Time: 10:15:00 AM Dorie Cat regina [facility] 1 12:30:01 Finding of urine substanc e level Completed 201501/11/2021 Proteinu briana, unspecif ied;Logan rded Elsewher e: No Locat ion: [facility] S [facility]: Rand Blancoti ce ID: [id number] Alfa lable Time: 08:30:00 AM Dorie Emory regina [facility] 12:29:45 Contrace ptive sheath status [id number] Completed 201601/11/2021 IUD follow up;Recor ded Elsewher e: No Locat ion: [facility] S ource: [facility] pietro: N Bellati ce ID: [id number] Alfa lable Time: 05:00:00 PM Dorie Cat regina [facility] 1 12:29:38 Screenin g for malignan t neoplasm of rectum Completed 201601/11/2021 Encounte r for screenin g for malignan t neoplasm of rectum;R ecorded Elsewher e: No Locat ion: [facility] S ource: EHR Strategic Procurement Manager pietro: N Practi ce ID: [id number] Alfa lable Time: 01:00:00 PM Dorie Cat [facility] 1 12:30:20 Adult health examinat ion Completed 201401/09/2021 ROUTINE MEDICAL EXAM;Rec orded Elsewher e: No Locat ion: [facility] S ource: EHR Strategic Procurement Manager pietro: N Practi ce ID: [id number] Alfa lable Time: 11:00:00 [facility] 18:05:05 Educatio n Completed 201601/09/2021 Encounte r for other general counseli ng and advice on contrace ption;Re corded Elsewher e: No Locat ion: [facility] S ource: EHR Strategic Procurement Manager pietro: N Practi ce ID: [id number] Alfa lable Time: 05:45:00 PM Carmel tapia [facility] 1 18:05:25 Human papillom avirus deoxyrib onucleic acid detected , high risk on cervical specimen [id number] Completed 201501/11/2021 Cervical high risk HPV DNA test positive ;Recorde d Elsewher e: No Locat ion: [facility] S ource: EHR Strategic Procurement Manager pietro: N Practi ce ID: [id number] Alfa lable Time: 10:15:00 AM Dorie tapia [facility] 1 12:29:48 Dysfunct ional uterine bleeding Completed 201101/11/2021 Other disorder s of menstrua tion and other abnormal bleeding from female genital tract;Re corded Elsewher e: No Locat ion: [facility] S ource: EHR Strategic Procurement Manager pietro: N Practi ce ID: [id number] Alfa lable Time: 06:00:00 PM Dorie tapia [facility] 1 12:29:40 Infectio n screenin g Completed 201501/11/2021 Encounte r for screenin g for oth infec/pa rastc diseases ;Recorde d Elsewher e: No Locat ion: [facility] S ource: EHR Strategic Procurement Manager pietro: N Practi ce ID: [id number] Alfa lable Time: 10:15:00 AM Droie tapia [facility] 1 12:30:03 Pelvic and perineal pain [id number] Completed 201601/11/2021 Pelvic and perineal pain;Rec orded Elsewher e: No Locat ion: [facility] S ource: EHR Strategic Procurement Manager pietro: N Practi ce ID: [id number] Alfa lable Time: 04:30:00 PM Dorie tapia [facility] 1 12:30:15 Ill-defi morena intestin al infectio n Completed 201101/11/2021 No Show Fee;Prac valencia ID: [id number] Droie tapia [facility] 1 12:29:59 Problem Notes None recorded. Procedures Surgical History Date Name Laterality Status Provider Name and Address Organization Details Recorded Time 09/26/19 25 Date of Last Mammogram completed Michelle Arita [facility] 11/10/2024 11:05:20 08/19/19 24 Date of Last Pap Smear completed Chelo Cruz [facility] 09/01/2024 09:23:44 01/18/20 22 Wart Topical Procedure completed Carlee Laboy MESHA- [address], [place], [address], [facility] 01/17/2022 13:34:08 04/16/20 21 Date of Last Colonoscopy completed Dorie Cat [facility] 01/17/2022 12:06:08 02/16/20 21 Wart Topical [facility] [address], [place], [address], [facility] 02/15/2021 12:27:21 02/02/20 21 Wart Topical Procedure [facility] [address], [place], [address], [facility] 02/01/2021 09:32:35 01/18/20 21 Wart Topical Procedure completed Annmarie Pastrana CNM [address], [place], [address], [facility] 01/17/2021 12:08:54 11/07/19 17 Colposcopy completed [facility] 01/14/2021 14:40:25 11/07/19 17 Colposcopy completed [facility] 01/14/2021 14:47:46 08/16/19 11 section completed [facility] 01/14/2021 14:52:14 11/10/19 07 section completed [facility] 01/14/2021 14:52:07 12/30/19 03 section completed [facility] 01/14/2021 14:52:00 Imaging Results None recorded. Procedure Notes None recorded. Medical Equipment None Reported. Allergies Allergen ID Allergen Name Allergen Category Reaction Reaction Severity Criticality Documentation Date Start Date Code Code System Note Provider Name and Address Organization Details Recorded Time Substance with sulfonami de structure and antibacte rial mechanism of action (substanc e) medicatio n itching mild low 07/11/2022 41568 5256 SNOMED Carlee heaton [facility] [address], [place], [address] [place] [address] - [facility] 3 11:39:59 9687 codeine medicatio n Not available Not available Not available 05/24/2020 2670 RxNorm Comme nt: [facility]at [facility]; Not Available [facility] 0 14:14:38 9688 fluconazo le medicatio n Not available Not available Not available 05/24/2020 4450 RxNorm Comme nt: [facility] Agent : Diflu can; Not Available [facility] 14:14:38 9689 Product containin g penicilli n (product) medicatio n Not available Not available Not available 05/24/2020 69805 8001 SNOMED Comme nt: [facility]; [facility] 0 14:14:38 Medications Name Sig Start Date [...] Prescrib ed Elsewher e: No Locat ion: [facility] odify By: abel ruthunter DateTime : 08/07/19 16 09:53:07 AM Not Available Not Available Not Available citalopra m 10 mg/5 mL oral solution take 10 millilit er by oral route every day 01/09 completed Prescrib ed Elsewher e: Yes Loca tion: [facility] odify By: hernandez ruthunter DateTime : 08/24/19 19 10:45:00 AM Not Available Not Available Not Available Zithromax Z-Mauricio 250 mg tablet take 2 tablet by oral route every day for 1 day then 1 tablet (250 mg) by oral route once daily for 4 days 02/12 completed Prescrib ed Elsewher e: No Locat ion: [facility] odify By: abel hawk DateTime : 02/09/20 15 10:15:00 AM Not Available Not Available Not Available Diflucan 150 mg tablet take 1 tablet by oral route once 02/08 completed Prescrib ed Elsewher e: No Locat ion: [facility] odify By: dolores riojas DateTime : 11/20/19 15 11:16:34 AM Not Available Not Available Not Available Macrobid 100 mg capsule take 1 capsule by oral route every 12 hours for 10 days with food 08/28 completed Prescrib ed Elsewher e: No Locat ion: [facility] odify By: abel hawk DateTime : [...] Prescrib ed Elsewher e: No Locat ion: Rosas jay [facility] odify By: thelma bear DateTime : 11/09/19 18 12:30:00 PM Not [...] Elsewher e: No Locat ion: [facility] odify By: [email or web address] Encounte r DateTime : 12/13/19 16 08:30:00 AM Not Available Not Available Not Available Terazol 7 0.4 % vaginal cream insert 1 applicat orful by vaginal route every day for 7 days at bedtime 11/14 completed Prescrib ed Elsewher e: No Locat ion: [facility] odify By: thelma jarquin Encou nter DateTime : 11/09/19 18 12:30:00 PM Not Available Not Available Not Available Autoject 2 subcutane ous insulin pen 08/19 completed Prescrib ed Elsewher e: Yes Loca tion: [facility] odify By: sharonda Encounte r DateTime : 10/13/19 12 10:16:19 PM Not Available Not Available Not Available Bactrim DS 800 mg-160 mg tablet take 1 tablet by oral route every 12 hours 10/27 completed Prescrib ed Elsewher e: No Locat ion: [facility] odify By: sharonda Encounte r DateTime : 08/25/19 17 01:42:38 PM [...] Elsewher e: Yes Loca tion: [facility] odify By: sharonda Encounte r DateTime : 10/28/19 17 01:00:00 PM [...] Elsewher e: No Locat ion: [facility] odify By: thelma jarquin Encou nter DateTime : 08/21/19 16 10:15:00 AM [...] oral route every day 08/19 completed Prescrib ed Flori e: No Locat ion: Nehalstarla thompson [facility] odify By: sharonda forbes DateTime : 12/13/19 16 08:30:00 AM [...] and Address Organization Details Last Updated DateTime 07/11/2022 172.72 cm 26.8 kg/m2 38321.26 g 114 mm[Hg] 77 mm[Hg] Jeanette Mcdonaldsangeetha [facility] 3 11:31:16 Date Recorded Body height Body mass index (BMI) Body weight Systolic blood pressure Diastolic blood pressure Provider Name and Address Organization Details Last Updated DateTime 08/19/2023 172.72 cm 26.9 kg/m2 67696.41 g 134 mm[Hg] 81 mm[Hg] Swathi Saab [facility] 4 17:44:11 Date Recorded Body height Body mass index (BMI) Body weight Systolic blood pressure Diastolic blood pressure Provider Name and Address Organization Details Last Updated DateTime 09/01/2024 172.72 cm 23 kg/m2 68369.45 g 124 mm[Hg] 76 mm[Hg] Chelo Cruz [facility] 5 11:49:45 Date Recorded Body height Body mass index (BMI) Body weight Systolic blood pressure Diastolic blood pressure Provider Name and Address Organization Details Last Updated DateTime 11/10/2024 172.72 cm 22 kg/m2 19588.89 g 127 mm[Hg] 81 mm[Hg] Michellejúnior Trivediney [facility] 5 11:04:06 Date Recorded Systolic blood pressure Diastolic blood pressure Provider Name and Address Organization Details Last Updated DateTime 01/17/2022 122 mm[Hg] 80 mm[Hg] Carlee Lbaoy, MESHA-BC [address], [place], [address], [facility] 01/17/2022 12:16:28 Date Recorded Body height Body mass index (BMI) Body weight Provider Name and Address Organization Details Last Updated DateTime 01/17/2022 172.72 cm 29.6 kg/m2 16190.51 g Dorie Cat [facility] 01/17/2022 12:03:59 Social History Question Answer Notes LastModified by Organizat ion Details LastModified Time Tobacco Smoking Status Never Smoker ALMA CARR regina, [facility] 07/11/2022 11:26:24 If You Are , What Was Your Level Of Alcohol Consumption Prior To ? None Information not available 07/11/2022 Are You Blind Or Do You Have Difficulty Seeing? No Information n ot available 01/17/2021 What Is Your Level Of Caffeine Consumption? Occasional [email or web address] Information not available 01/17/2021 How Much Tobacco Do You Chew? None [email or web address] Information not available 01/17/2022 In The 14 Days Before Symptom Onset, Have You Had Close Contact With A Laboratory-confirm ed COVID-19 While That Case Was Ill? No [email or web address] Information n ot available 01/17/2021 In The 14 Days Before Symptom Onset, Have You Had Close Contact With A Person Who Is Under Investigation For COVID-19 While That Person Was Ill? No [email or web address] Information not available 01/17/2021 Have You Been To An Area Known To Be High Risk For COVID-19? No [email or web address] Information not available 01/17/2021 Are You Deaf Or Do You Have Serious Difficulty Hearing? No [email or web address] Information not available 01/17/2021 What Type Of Diet Are You Following? DIABETIC [email or web address] Information n ot available 02/01/2021 What Is The Highest Grade Or Level Of School You Have Completed Or The Highest Degree You Have Received? [id number] [email or web address] Information not available 01/17/2022 Have You Ever Been Counseled For Unhealthy Alcohol Use? No Information not available 07/11/2022 Do You Use Your Seat Belt Or Car Seat Routinely? Yes [email or web address] Information not available 01/17/2021 Do You Have Smoke And Carbon Monoxide Detectors In Your Home? Yes [email or web address] Information not available 01/17/2021 How Much Tobacco Do You Smoke? No [email or web address] Information not available 01/17/2022 Do You Use Sunscreen Routinely? Yes [email or web address] Information not available 01/17/2021 Has Tobacco Cessation Counseling Been Provided? No Information not available 07/11/2022 Have You Used IV Drugs? No [email or web address] Information not available 01/17/2022 Do You Have Difficulty Walking Or Climbing Stairs? No Information not available 07/11/2022 Sex: Female Functional Status Question Answer Note LastModified by Organizat ion Details LastModified Time Do you use any illicit or recreational drugs? No [email or web address] Information not available 01/17/2021 Do you or have you ever used any other forms of tobacco or nicotine? No Information not available 07/11/2022 What is your level of alcohol consumption? Occasional [email or web address] Information not available 01/17/2021 Are you able to walk? YESWOREST [email or web address] Information not available 01/17/2021 Are you able to care for yourself? Yes Information n ot available 07/11/2022 Do you have difficulty dressing or bathing? No Information not available 07/11/2022 What is your exercise level? Occasional [email or web address] Information not available 02/01/2021 Mental Status Question Answer Note LastModified by Organization D etails LastModified Time Do you feel stressed (tense, restless, nervous, or anxious, or unable to sleep at night)? [id number] [email or web address] Information not available 01/17/2021 Family History Relationship Description Onset Age of this Age Resolved Age Notes LastModified by Organization Details LastModified Time Mother Malignant neoplasm of ovary [email or web address] Not available 2020 13:13:59 Mother Malignant tumor of cervix [email or web address] Not available 2020 13:14:15 Paternal Grandmother Malignant tumor of breast [email or web address] Not available 2020 13:14:30 Maternal Grandmother Malignant tumor of breast [email or web address] Not available 01/14 15:24:19 Medical History Condition Response Allergies (Food, seasonal, environmental ) N Other N Breast Cancer N Drug/Latex Allergies/Reactions N Blood Transfusion N Dermatologic Disorders N Lung Disease N Defects or Inherited Disease N Breast Problem N Gestational Diabetes N Hematologic disorders N Anesthesia Complications N History of STI Y Deep Vein Thrombosis N Polycystic ovary syndrome N Anxiety Disorder N Autoimmune disease N Arthritis N Infertility N Polyps N Acid Reflux (GERD) N History of abnormal pap Y Cancer N Stroke N Varicosities N Neurologic/Epilepsy N Endometriosis N High Cholesterol Y Headaches N Fibromyalgia N Kidney Disease N Heart Problems N Kidney or Bladder Problems N Thyroid Problems N GI Problems N Eating Disorder N Anemia N Art (IVF or FET) N Psychiatric Illness N Ovarian Cancer N Diabetes Y Pulmonary (TB, Asthma) N Hepatitis/Liver Disease N No Past Medical History N Eczema N Urinary Tract Infection N Abuse/Domestic Violence N Asthma N Trauma/Violence N Depression/ depression N Heart Disease N Pre-Eclampsia N Hypertension Y Osteoporosis N Thrombophilias N Gynecological History Statement/Question Response Abnormal Pap [...] SNOMED-CT Code Diagnosis ICD10 Code Diagnosis Note [id number] Brett Jones MD [facility] [address] [address] 01/09/2021 17:44:54 01/12/2021 15:25:41 Condyloma acuminata of vulva 112466345 A63.0 Patient is 45-year-ol d female with vulvar condyloma. We spent over 35 minutes face-to-fa ce. We discussed these findings. We discussed treatment. We discussed the etiology, natural history, treatment, incidence of vulvar condyloma. This is a complex topic. [id number] SHERYL Mendoza [facility] [address] [address] 11/10/2024 10:49:51 11/10/2024 11:50:32 test positive 138814046 Z32.01 urine test done today with faint [...] plan of care. Contracept ion care management [id number] Z30.9 [id number] Carlee Laboy [facility] [address] [address] 01/11/2021 11:54:08 01/12/2021 16:25:34 Gynecologic examination 36170239 Z01.419 Suggested Calcium with Vitamin D 1200-1500m g daily. Patient advised to get an annual flu shot in the fall and she could obtain at [facility] or [facility] care clinic. Also to obtain TDap vaccinatio n if you have not had one in the last 10 years. Recommend yearly mammograms . Encouraged monthly self breast exams. Encourage safe sexual practices, to use condoms and limit partners if not already in a monogamous relationsh ip. Engage in daily exercise of low impact aerobic exercise 45-60 minutes 4-5 times weekly. Avoid tobacco and illicit drugs as well as using moderation with alcohol intake less than 1-2 8 oz beverages daily. This lifestyle behavior pattern will lead to less health conditions and longer life span. If BMI greater than 25 weight watchers or dietary consult advised. All questions have been answered. Patient appears to understand informatio n, but if you have any questions please call or respond to this email. Pap/hpvMam moColon-op ts for cologuardF amily history ovarian cancer: she puts her mother but she is actually not entirely sure if her mother had ovarian cancer b/c her aunt said it was caused from HPV cervical cancer. Her mother is not alive to ask this informatio n. She has done genetic screening and it was neg.Will return for vulvar check of lesions possible removal of a few of these that are more prominent with possible TCA treatment if required. Derm referral was also discussed. [id number] Annmarie Pastrana CNM [facility] [address] [address] 01/17/2021 09:31:25 01/17/2021 12:23:04 Condyloma acuminatum of the anogenital region 331685103 A63.0 [id number] Carlee Laboy [facility] [address],[place] [address] 02/01/2021 09:04:15 02/01/2021 09:38:49 Anogenital human papillomavirus infection 627762356 A63.0 TCA treatment completed today #2WIll return in 2wks for additional TCA applicatio n. [id number] Carlee Laboy [facility] [address],[place] [address] 02/15/2021 12:02:12 02/15/2021 12:29:46 Genital warts 308347393 A63.0 TCA treatment completed todaySee procedure notes.Will call PRN for TCA treatments after today. [id number] Carlee Laboy [facility] [address],[place] [address] 01/17/2022 11:27:33 01/19/2022 16:14:30 Gynecologic examination 71662159 Z01.419 Z11.51 Suggested Calcium with Vitamin D 1200-1500m g daily. Patient advised to get an annual flu shot in the fall and she could obtain at [facility] or [facility] care clinic. Also to obtain TDap vaccinatio n if you have not had one in the last 10 years. Recommend yearly mammograms . Encouraged monthly self breast exams. Encourage safe sexual practices, to use condoms and limit partners if not already in a monogamous relationsh ip. Engage in daily exercise of low impact aerobic exercise 45-60 minutes 4-5 times weekly. Avoid tobacco and illicit drugs as well as using moderation with alcohol intake less than 1-2 8 oz beverages daily. This lifestyle behavior pattern will lead to less health conditions and longer life span. If BMI greater than 25 weight watchers or dietary consult advised. All questions have been answered. Patient appears to understand informatio n, but if you have any questions please call or respond to this email. Pap/hpvMam moColon-op ts for cologuardF amily history ovarian cancer: she puts her mother but she is actually not entirely sure if her mother had ovarian cancer b/c her aunt said it was caused from HPV cervical cancer. Her mother is not alive to ask this informatio n. She has done genetic screening and it was neg.Will return for vulvar check of lesions possible removal of a few of these that are more prominent with possible TCA treatment if required. Derm referral was also discussed. Condyloma acuminata of vulva 302188768 A63.0 TCA Txment done todayRTO x 2wks if need another txment [id number] Carlee Laboy [facility] [address],[facility] [place] [address] 07/11/2022 11:25:03 07/13/2022 11:46:31 Folliculitis 89975926 L73.9 Folliculit is seen on exam lower right opening to vaginal canal near introitus. Draining serous pink fluid small amtTender ++ Comfort care-epsom salt soaks & ice packs to area. Discussed abx (can take antihistam ine) but has tolerated in past. Counseled on medication R/B's, Most common side effects, & use. All questions were answered to patient satisfacti on. Time spent in visit is a total of 15 mins with at least 50% of visit consisting of counseling and review of plan of care. [id number] Carlee Laboy [facility] [address],[facility] [place] [address] 08/19/2023 17:35:29 08/24/2023 09:26:40 Gynecologic examination 05154690 Z01.419 Z11.51 Suggested Calcium with Vitamin D 1200-1500m g daily. Patient advised to get an annual flu shot in the fall and she could obtain at [facility] or [facility] take care clinic. Also to obtain TDap vaccinatio n if you have not had one in the last 10 years. Recommend yearly mammograms . Encouraged monthly self breast exams. Encourage safe sexual practices, to use condoms and limit partners if not already in a monogamous relationsh ip. Engage in daily exercise of low impact aerobic exercise 45-60 minutes 4-5 times weekly. Avoid tobacco and illicit drugs as well as using moderation with alcohol intake less than 1-2 8 oz beverages daily. This lifestyle behavior pattern will lead to less health conditions and longer life span. If BMI greater than 25 weight watchers or dietary consult advised. All questions have been answered. Patient appears to understand informatio n, but if you have any questions please call or respond to this email. Pap/hpv sent STD Screen declined Genetic Screen discussed Colon Screen-did cologuard 2022 Dexa Screen na Routine Labs PCP Screening mammography 24 245074 Z12.31 [id number] SHERYL Mendoza [facility] [address] [address] 09/01/2024 11:42:22 09/04/2024 10:50:24 Gynecologic examination [id number] Z01.419 WWEBC - Mirena IUD (inserted 02/17/2017 and will 02/17/2025) Pap - done todaySTI screen - declinedMa mmogram - order givenColon cancer screening - UTD/PCP cologuardR outine labs - UTD/PCPRTC in 1 yr or sooner if needed Suggested Calcium with Vitamin D daily. Patient advised to get an annual flu shot in the fall and she could obtain at local pharmacy. Also to obtain TDap vaccinatio n if you have not had one in the last 10 years. Recommend yearly mammograms . Encouraged monthly self breast exams. Encourage safe sexual practices, to use condoms and limit partners if not already in a monogamous relationsh ip. Engage in regular exercise. Avoid tobacco and illicit drugs. This lifestyle behavior pattern will lead to less health conditions and longer life span. If BMI greater than 25 dietary consult advised. All questions have been answered. Breast lump [id number] N63 .0 bilateral diagnostic mammogram with u/s order given to pt Health Concerns Section Related Observation LastModified by Organization Detai ls LastModified Time None Recorded Concern Status LastModified by Organization Details LastModified Time None Recorded Advance Directives Directive None Recorded Payers Encounter Date Sequence Insurance Name Policy Number Policy Flores Covered Member ID Flores Member ID Guarantor Name 01/17/2022 1 [employer] [id number] 3 Jayleen Nathan Jase [id number] Jayleen Nathan Jase 07/11/2022 1 [place] [id number] 3 Jayleen Laguna [id number] Jayleen Laguna 08/19/2023 1 [place] [id number] 3 Jayleen Laguna [id number] 05 Jayleen Laguna 09/01/2024 1 [place] [id number] 3 Jayleen Laguna [id number] 05 Jayleen Laguna 11/10/2024 1 [place] [id number] 3 Jayleen Laguna [id number] Jayleen Laguna Notes Date Note Type Note Provider Name and Address Organization Details Recorded Time 2 text/html Annual GYNReported bypatient.Menstrual cycle:Normal menses Urinary symptoms:No hematuria; No incontinence Vulva:No genital lesion Vagina:Normal vaginal discharge Breast:No breast pain; No breast lump; No nipple discharge Current Contraception:Satisfied with current contraception; Intrauterine device (iud) Sexual complaints:No sexual complaints; No pain during intercourse; Normal libido Menopausal Symptoms:No menopausal symptoms; Normal vaginal lubrication Psychological symptoms:No depression; No anxiety; No PMDD Preventive measures:Encourage self breast examination; Encourage regular exercise; Encourage no tobacco use; Encourage regular mammograms starting age 40; Followed with yearly pap smears; Needs to schedule mammogram; Up to date on colonoscopy screening Carlee Laboy [facility] [address], [place], [address], [facility] 01/17/2022 13:34:57 3 text/html Here for vaginal bump that is tender.Appeared a couple days agoSoreMonogamousHx of condyloma (doesn't know if this is one of these lesions).No other sx's Neg pain of abd/pelvis/flankNeg urinary sx'sNeg GI sx'sNeg N/V/F/C/DNeg Vag d/c, odor, irritation, itching Carlee Laboy [facility]- [address], [place], [address], [facility] 07/11/2022 11:48:05 4 text/html Annual GYNReported bypatient.History:no gynecologic complaints Menstrual cycle:Normal menses Urinary symptoms:No hematuria; No incontinence Vulva:No genital lesion Vagina:Normal vaginal discharge Breast:No breast pain; No breast lump; No nipple discharge Current Contraception:Satisfied with current contraception; Intrauterine device (iud) Sexual complaints:No sexual complaints; No pain during intercourse; Normal libido Menopausal Symptoms:No menopausal symptoms; Normal vaginal lubrication Psychological symptoms:No depression; No anxiety; No PMDD Preventive measures:Encourage self breast examination; Encourage regular exercise; Encourage no tobacco use; Encourage regular mammograms starting age 40; Followed with yearly pap smears; Needs to schedule mammogram; Needs to schedule colonoscopy SHERYL Hutchison- [address], [place], [address], [facility] 08/24/2023 09:12:05 5 text/html Annual GYNReported bypatient.Menstrual cycle:Normal menses Urinary symptoms:No hematuria; No incontinence Vulva:No genital lesion Vagina:Normal vaginal discharge Breast:No breast pain; No breast lump; No nipple discharge Current Contraception:Satisfied with current contraception; Intrauterine device (iud) Sexual complaints:No sexual complaints; No pain during intercourse; Normal libido Menopausal Symptoms:No menopausal symptoms; Normal vaginal lubrication Psychological symptoms:No depression; No anxiety; No PMDD Preventive measures:Encourage self breast examination; Encourage regular exercise; Encourage no tobacco use; Encourage regular mammograms starting age 40Notes:48yo wweBC - Mirena IUD, inserted 02/17/2017last pap 08/2023 : nilm, HPV (-)cologuard UTD 2024/PCPmammogram last 12/2023 SHERYL Mendoza [address], [place], [address], [facility] 09/04/2024 09:15:27 5 text/html 48yopresents for Mirena IUD removal/replacementcurre nt IUD inserted 02/17/2017she has not had IC since May, her partner also has a vasectomy SHERYL eMndoza [address], [place], [address], [facility] 11/10/2024 11:38:19 OBGyn Episode Ob Episode Information Episode Created Date Number of Fetuses Patient Bloodtype Patient rh Status Prepregnancy Weight lbs Domestic Partner Domestic Partner Phone Father Name Investigative Shopper Status 01/11/20 21 1 CLOSED Fetus Data First Name Last Name Admitted to NICU Weight (g) Sex Living Outcome Pediatric Complications Fetus ID Race Codes Race Delivery Type 3486.76 1704 F Full Term [id number] Repeat Morro Calculation Initial [place]ro Date Initial Exam Date Initial Exam Provider Initial Ultrasound Date Last Menstrual Period Date Ultra Sound Weeks Gestation 0 Eighteen To Twenty Week Morro Update Ultra Sound Date Fundal Height At Umbil Quickening Date Ultra Sound Latest Weeks Gestation Final Morro Confirmed By Final Morro Confirmed Date Final Morro Date Ultra Sound Latest Days Gestation 0 0 Menstrual History Last Menstrual Date Menses Monthly On Bcp Conception Prior Menses Frequency Hcg Plus Date Menarche Onset Age Delivery Information Delivery Date Delivery Type Labor Anesthesia Weeks Gestation Incision Type Labor Labor Length Hrs Delivered By Post Complications Tubal Sterilization Discharge Date Comments 1 37 Discharge Information Feeding Method Contraceptive Method Maternal HG B and HCT Levels Ob Episode Information Episode Created Date Number of Fetuses Patient Bloodtype Patient rh Status Prepregnancy Weight lbs Domestic Partner Domestic Partner Phone Father Name Investigative Shopper Status 01/11/20 21 1 CLOSED Fetus Data First Name Last Name Admitted to NICU Weight (g) Sex Living Outcome Pediatric Complications Fetus ID Race Codes Race Delivery Type 3458.63 9 F Full Term [id number] Primary Morro Calculation Initial Morro Date Initial Exam Date Initial Exam Provider Initial Ultrasound Date Last Menstrual Period Date Ultra Sound Weeks Gestation 0 Eighteen To Twenty Week Morro Update Ultra Sound Date Fundal Height At Umbil Quickening Date Ultra Sound Latest Weeks Gestation Final Morro Confirmed By Final Morro Confirmed Date Final Morro Date Ultra Sound Latest Days Gestation 0 0 Menstrual History Last Menstrual Date Menses Monthly On Bcp Conception Prior Menses Frequency Hcg Plus Date Menarche Onset Age Delivery Information Delivery Date Delivery Type Labor Anesthesia Weeks Gestation Incision Type Labor Labor Length Hrs Delivered By Post Complications Tubal Sterilization Discharge Date Comments 3 39 Jyoti e Discharge Information Feeding Method Contraceptive Method Maternal HG B and HCT Levels Ob Episode Information Episode Created Date Number of Fetuses Patient Bloodtype Patient rh Status Prepregnancy Weight lbs Domestic Partner Domestic Partner Phone Father Name Investigative Shopper Status 01/15/20 21 1 CLOSED Fetus Data First Name Last Name Admitted to NICU Weight (g) Sex Living Outcome Pediatric Complications Fetus ID Race Codes Race Delivery Type , Spontane ous [id number] Morro Calculation Initial Morro Date Initial Exam Date Initial Exam Provider Initial Ultrasound Date Last Menstrual Period Date Ultra Sound Weeks Gestation 0 Eighteen To Twenty Week Morro Update Ultra Sound Date Fundal Height At Umbil Quickening Date Ultra Sound Latest Weeks Gestation Final Morro Confirmed By Final Morro Confirmed Date Final Morro Date Ultra Sound Latest Days Gestation 0 0 Menstrual History Last Menstrual Date Menses Monthly On Bcp Conception Prior Menses Frequency Hcg Plus Date Menarche Onset Age Delivery Information Delivery Date Delivery Type Labor Anesthesia Weeks Gestation Incision Type Labor Labor Length Hrs Delivered By Post Complications Tubal Sterilization Discharge Date Comments 5 Discharge Information Feeding Method Contraceptive Method Maternal HG B and HCT Levels Ob Episode Information Episode Created Date Number of Fetuses Patient Bloodtype Patient rh Status Prepregnancy Weight lbs Domestic Partner Domestic Partner Phone Father Name Investigative Shopper Status 01/15/20 21 1 CLOSED Fetus Data First Name Last Name Admitted to NICU Weight (g) Sex Living Outcome Pediatric Complications Fetus ID Race Codes Race Delivery Type , Spontane ous [id number] Morro Calculation Initial Morro Date Initial Exam Date Initial Exam Provider Initial Ultrasound Date Last Menstrual Period Date Ultra Sound Weeks Gestation 0 Eighteen To Twenty Week Morro Update Ultra Sound Date Fundal Height At Umbil Quickening Date Ultra Sound Latest Weeks Gestation Final Morro Confirmed By Final Morro Confirmed Date Final Morro Date Ultra Sound Latest Days Gestation 0 0 Menstrual History Last Menstrual Date Menses Monthly On Bcp Conception Prior Menses Frequency Hcg Plus Date Menarche Onset Age Delivery Information Delivery Date Delivery Type Labor Anesthesia Weeks Gestation Incision Type Labor Labor Length Hrs Delivered By Post Complications Tubal Sterilization Discharge Date Comments 2 Discharge Information Feeding Method Contraceptive Method Maternal HG B and HCT Levels Ob Episode Information Episode Created Date Number of Fetuses Patient Bloodtype Patient rh Status Prepregnancy Weight lbs Domestic Partner Domestic Partner Phone Father Name Investigative Shopper Status 01/11/20 21 1 CLOSED Fetus Data First Name Last Name Admitted to NICU Weight (g) Sex Living Outcome Pediatric Complications Fetus ID Race Codes Race Delivery Type 3345.24 1 F Full Term [id number] Repeat Morro Calculation Initial Morro Date Initial Exam Date Initial Exam Provider Initial Ultrasound Date Last Menstrual Period Date Ultra Sound Weeks Gestation 0 Eighteen To Twenty Week Morro Update Ultra Sound Date Fundal Height At Umbil Quickening Date Ultra Sound Latest Weeks Gestation Final Morro Confirmed By Final Morro Confirmed Date Final Morro Date Ultra Sound Latest Days Gestation 0 0 Menstrual History Last Menstrual Date Menses Monthly On Bcp Conception Prior Menses Frequency Hcg Plus Date Menarche Onset Age Delivery Information Delivery Date Delivery Type Labor Anesthesia Weeks Gestation Incision Type Labor Labor Length Hrs Delivered By Post Complications Tubal Sterilization Discharge Date Comments 7 37 Discharge Information Feeding Method Contraceptive Method Maternal HG B and HCT Levels
[2024-11-10 12:04] LABS: Beta HCG Quantitative 5.39 mIU/ML
== END 2024-11-10 10:52 | disposition home or self-care (01) ==
PROVIDERS: PCP Nurse Practitioner; Visit Provider Nurse Practitioner
DX: Z32.01 Encounter for pregnancy test, result positive (principal)
CPT/HCPCS: 36415; 84702

== ENCOUNTER 2024-11-13 12:07 | Outpatient (CLI) | payer BC, SELFPAY ==
[2024-11-13 13:12] LABS: Beta HCG Quantitative 3.88 mIU/ML
--- OUTSIDE RECORDS SUMMARY | 2024-11-13 13:26 | XMS_ITS | Encounter Summary ---
Author Organization [facility] Healthcare Address [address] [place] [address] Care Team Providers Care System Planning Engineer Name Role Phone Kaushal Lemus MD Primary Care Provider +- [phone] Reason for Visit * Diagnostic Imaging (Routine) - Closed Specialty Diagnoses / Procedures Referred By Manuel england Referred To Contact Procedures Breast Imaging US Outside Reference Nayely Vyas NP Phone: tel: fax: Referral ID Status Reason Start Date Expiration Date Visits Re quested Visits Authorized [id number] Closed 06/03/2022 07/03/2023 1 1 Encounter Details Date Type Department Care Team (Late st Contact Info) Description 06/27/2013 12:05 AM COPY WRITER Hospital Encounter [facility] [address] [place] [address] Social History Tobacco Use Types Packs/Day Years [...] on file Legal Sex Female 5:30 PM COPY WRITER Gender Identity Female 06/12/2021 10:25 AM COPY WRITER Sexual Orientation Straight 06/12/2021 10 :25 AM COPY WRITER 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 Never 06/26/2024 1:11 PM COPY WRITER Gal Bethea MA documented as of this encounter Plan of Treatment Not on file documented as of this encounter Procedures Procedure Name Priority Date/Time Associated Diagnosis Comments BREAST IMAGING US OUTSIDE REFERENCE Routine 06/27/2013 12:05 AM COPY WRITER documented in this encounter Results * Breast Imaging US Outside Reference (06/27/2013 12:05 AM COPY WRITER) Impressions [facility] - 06/03/2022 9:22 AM COPY WRITER These images are for Reference purposes only and have not been reviewed by [facility] Radiology. There will be no report generated by a [facility] Radiologist. Narrative [facility] - 06/03/2022 9:22 AM COPY WRITER EXAMINATION: Images For Reference Purposes Only us Nayely Vyas GAS SUBSTATION OPERATOR IMG MAMMO PROCEDURES Fin al Result [facility] documented in this encounter Visit Diagnoses Not on filedocumented in this encounter Care Teams System Planning Engineer Relationship Specialty Start Date End Date Kaushal Lemus MD PCP - General 09/17/11 04/22/14 documented as of this encounter
--- OUTSIDE RECORDS SUMMARY | 2024-11-13 13:26 | XMS_ITS | Referral Summary ---
Author Organization [facility] Physician Office Building [address] [place] [id number] Care Team Providers Care Risk Mgr Name Role Phone Carlee Laboy CUSTOMER TRAINING SPECIALIST Unavailable [phone] Maricruz Pina MD Primary Care Provider Encounters Date Type Department Care Team Description 11/07/2024 1:00 PM CDT Office Visit [facility] Special[facility] [address] [place] [phone] Sheree Bernal PA Type 1 diabetes [...] 08/04/2023 Assessment & Plan (08/04/2023 6:56 PM EDITORIAL SPECIALIST): Mild. Noted on last eye exam which has been scanned in. Patient is following with Ophthalmology and Endocrinology. She will continue working with the specialists Hypertension associated with type 1 diabetes archel litus 12/07/2022 Assessment & Plan (11/07/2024 2:31 PM CDT): Chronic problem, Controlled on olmesartan. No changes. Assessment & Plan (06/26/2024 1:49 PM EDITORIAL SPECIALIST): Chronic, stable Continue olmesartan Update GFR and microalbumin Assessment & Plan (08/04/2023 6:51 PM EDITORIAL SPECIALIST): Chronic diabetes and blood pressure. Blood pressure has been controlled. Continue her current blood pressure medications. Refills are coming from her sweater designer so we will let them continue to refill. If she wants me to take over then we will need to see her every 6 months for monitoring of the hypertension Assessment & Plan (06/01/2023 12:55 PM EDITORIAL SPECIALIST): Chronic, well-controlled Continue olmesartan Update GFR and MA Assessment & Plan (12/07/2022 4:33 PM CDT): Chronic, well-controlled continue losartan Hypoglycemia due to type 1 diabetes mellitus Assessment & Plan (05/26/2022 2:07 PM EDITORIAL SPECIALIST): Prevention and treatment of hypoglycemia were discussed Rx for Freida was sent. Hyperlipidemia due to type 1 diabetes mellitus 0 08/26/2020 Assessment & Plan (11/07/2024 2:31 PM CDT): Chronic problem. On statin therapy, no changes. Assessment & Plan (06/26/2024 1:48 PM EDITORIAL SPECIALIST): Chronic, stable. Continue statin therapy with rosuvastatin Update lipid profile Assessment & Plan (12/07/2023 11:45 AM CDT): Chronic, stable. Continue statin therapy with rosuvastatin Assessment & Plan (08/04/2023 6:51 PM EDITORIAL SPECIALIST): Chronic. Working with Endocrinology for type 1 diabetes. Tolerates rosuvastatin. Last LDL was near goal. Continue rosuvastatin Assessment & Plan (06/01/2023 12:54 PM EDITORIAL SPECIALIST): Chronic, well-controlled Continue statin therapy with rosuvastatin Update lipid profile Assessment & Plan (12/07/2022 4:32 PM CDT): I emphasized to him the importance of lowering LDL cholesterol in patient with diabetes due to increased cardiovascular risk She has agreed on resuming her Crestor Assessment & Plan (05/26/2022 2:06 PM EDITORIAL SPECIALIST): Chronic, well controlled Continue with statin therapy [...] injections. Assessment & Plan (06/26/2024 1:48 PM EDITORIAL SPECIALIST): Chronic, not at goal The patient to [...] diet Assessment & Plan (06/01/2023 12:54 PM EDITORIAL SPECIALIST): Hba1c was Lab Results Component Value Date [...] Ozempic Assessment & Plan (05/26/2022 2:06 PM EDITORIAL SPECIALIST): Hba1c was Lab Results Component Value Date [...] restarted Assessment & Plan (05/29/2021 4:38 PM EDITORIAL SPECIALIST): Hba1c was Lab Results Component Value Date [...] and will adjust. Will contact [employer] associate trainer and order Dexcom. ROSE (generalized anxiety disorder) 05/12/2017 Assessment & Plan (08/04/2023 6:50 PM EDITORIAL SPECIALIST): Chronic. Controlled improving. Continue citalopram. Keep alprazolam [...] therapy. Assessment & Plan (05/12/2017 10:42 AM EDITORIAL SPECIALIST): Increase activity. Stick to prescribed nutrition plan, take prescriptions as instructed, call for any thought of suicide or homocidal ideation or anger outburst. Ensure 8hrs sleep if not getting this call to discuss so we can adjust medication Mild recurrent major depression 05/12/2017 Assessment & Plan (08/04/2023 6:51 PM EDITORIAL SPECIALIST): Chronic. Mood is improving with citalopram. Continue [...] out of control For emergency go to [facility] for evaluation as they have counselor control tower radio operator 28/12 See orders Assessment & Plan (05/12/2017 10:40 AM EDITORIAL SPECIALIST): Psychological condition is newly identified. Regular aerobic [...] 08/04/2023 Assessment & Plan (05/12/2017 10:44 AM EDITORIAL SPECIALIST): Patient very aware of her feelings. Sometimes [...] orders Assessment & Plan (05/12/2017 10:40 AM EDITORIAL SPECIALIST): New events. Xanax 0.25 mg TID prn Start Celexa 20 mg daily Refer to psychology. Dr. Woodruff BMI 29.0-29.9,adult 05/12/2017 08/04/19 Assessment & Plan (12/23/2018 8:46 AM CDT): BMI Follow-up includes: nutrition counseling, exercise counseling and education provided. Assessment & Plan (11/15/2018 5:11 PM CDT): BMI Follow-up includes: nutrition counseling, exercise counseling and education provided. Assessment & Plan (05/12/2017 10:39 AM EDITORIAL SPECIALIST): Body mass index is 26.94 kg/m . BMI Follow-up includes: nutrition counseling, exercise counseling and education provided. Cyst of skin 03/26/2014 08/04/2023 Overview (09/11/2016): Skin cyst Type 2 diabetes mellitus 10/21/201309/2016 Overview (09/11/2016): DMII WO CMP NT ST UNCNTR Type 1 diabetes mellitus without complication 10/22/19 14 08/04/2023 Overview (09/12/2016): DMI WO CMP UNCNTRLD Assessment & Plan (07/24/2019 3:06 PM EDITORIAL SPECIALIST): A1c 7.8. Agree that Bala Hilton with [...] orders Assessment & Plan (04/11/2018 4:17 PM EDITORIAL SPECIALIST): A1c increased. 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 Not on file Last Filed Vital Signs Vital Sign Reading Time Taken Comments Blood Pressure 120/64 11/07/2024 1:09 PM CDT Pulse 72 11/07/2024 1:09 PM CDT Temperature 37.2 C (98.9 F) 05/06/2023 4:34 PM EDITORIAL SPECIALIST Respiratory Rate 20 06/26/2024 1:17 PM EDITORIAL SPECIALIST Oxygen Saturation 99% 05/06/2023 4:34 PM EDITORIAL SPECIALIST Inhaled Oxygen Concentration - - Weight 66 [...] hyperglycemia (HCC) EGFR Routine 06/26/2024 1:54 PM EDITORIAL SPECIALIST Type 1 diabetes mellitus with hyperglycemia (HCC) LIPID PANEL Routine 06/26/2024 1:54 PM EDITORIAL SPECIALIST Type 1 diabetes mellitus with hyperglycemia (HCC) ALBUMIN CREATININE RATIO, URINE Routine 06/26/2024 1:54 PM EDITORIAL SPECIALIST Type 1 diabetes mellitus with hyperglycemia (HCC) HEPATITIS PANEL, ACUTE Routine 08/04/2023 3:24 PM EDITORIAL SPECIALIST Transaminitis THYROID FUNCTION CASCADE Routine 08/04/2023 3:24 PM EDITORIAL SPECIALIST HM DIABETES EYE EXAM Routine 07/05/2023 10:36 AM EDITORIAL SPECIALIST HM PAP SMEAR WITH HPV Routine 01/19/2022 HM DNA STOOL Routine 04/16/2021 HM MAMMOGRAPHY Routine 06/11/2018 from Last 3 Months or Most Recently Relevant to Health Maintenance Results * (ABNORMAL) POCT hemoglobin A1c (11/07/2024 1:12 PM CDT) Hemoglobin A1C, POC 7.7(A) 4.0 - 5.6 % Capillary blood 11/07/2024 1 :12 PM CDT Result [facility] Sheree VALDES POINT OF CARE TEST ORDE RABLES Final Result * POCT glucose (11/07/2024 1:12 PM CDT) Pathologist [facility] Glucose Blood, POC 265 Normal Fasting 70 - 100, Random <200 mg/dL Blood 11/07/2024 1:12 PM CDT Result [facility] Sheree VALDES POINT OF CARE TEST ORDE RABLES Final Result * eGFR (06/26/2024 1:54 PM EDITORIAL SPECIALIST) [facility] eGFR >90 >=60 mL/min/1. 73 m2 Comment: [...] last reviewed 2021. Blood 06/26/2024 1:54 PM EDITORIAL SPECIALIST 06/26/2024 5:30 PM EDITORIAL SPECIALIST Result [facility] Adelita Shelton MD LAB BLOOD ORDERABLES Final Resul t [facility] [address] Department [place] [address] * Albumin Creatinine Ratio, Urine (06/26/2024 1:54 PM EDITORIAL SPECIALIST) [facility] Albumin Ur <12.0 mg/L Comment: Interpretive Data No reference range established. Current interpretive data was last revised 2018. Creatinine Ur 233.9 mg/dL N[facility] Comment: Interpretive Data No reference range established. Current interpretive data was last revised 2018. Albumin Creatinine Ratio, Ur <5 1 - 29 mg/g [facility] Urine 06/26/2024 1:54 PM EDITORIAL SPECIALIST 06/26/2024 4:31 PM EDITORIAL SPECIALIST us Adelita Shelton MD LAB URINE ORDERABLES Final Resul t [facility] [address] Department [place] [address] * Lipid panel (06/26/2024 1:54 PM EDITORIAL SPECIALIST) Cholesterol 161 30 - 199 mg/dL Comment: [...] ratio 2 [facility] Blood 06/26/2024 1:54 PM EDITORIAL SPECIALIST 06/26/2024 4:31 PM EDITORIAL SPECIALIST Adelita Shelton MD LAB BLOOD ORDERABLES Final Resul t [facility] [id number] [place] [place] [address] * Thyroid Function [place] (08/04/2023 3:24 PM EDITORIAL SPECIALIST) TSH 1.81 0.30 - 4.20 mcIUnit/mL [facility] Blood 08/04/2023 3:24 PM EDITORIAL SPECIALIST 08/04/2023 7:18 PM EDITORIAL SPECIALIST Maricruz Pina MD LAB BLOOD ORDERABLES F inal Result Performing Organization Address City/[facility] Co de Phone Number [facility] [address] [place] [place] [address] * Hepatitis panel, acute Blood (08/04/2023 3:24 PM EDITORIAL SPECIALIST) Hep A IgM Nonreactive Nonreactive [facility] Comment: Interpretive Data: If Hep A IgM Ab is reported as Equivocal, a new sample should be drawn in two weeks for testing. Current interpretive data was last revised on 19. Hep B core IgM Nonreactive Nonreactive [facility] Comment: Interpretive Data If HepB Core IgM Ab is reported as Equivocal, a new sample should be drawn in two weeks for testing. Current interpretive data was last revised on 19. Hep C Ab Nonreactive Nonreactive [facility] Comment: Interpretive Data Nonreactive: Antibodies [...] last revised on 2019. HepBsAg Nonreactive Nonreactive [facility] Blood 08/04/2023 3:24 PM EDITORIAL SPECIALIST 08/04/2023 7:32 PM EDITORIAL SPECIALIST Maricruz Pina MD LAB MICROBIOLOGY - GEN ERAL ORDERABLES Final Result [facility] [address] Department [place] [address] * (ABNORMAL) DIABETES EYE EXAM (07/05/2023 10:36 AM EDITORIAL SPECIALIST) Result [facility] Historical Provider HEALTH MAINTENANCE Final Result * PAP SMEAR WITH HPV (01/19/2022) Scribed Pap Smear w/HPV Normal Comment:care everywhere Result [facility] Historical Provider HEALTH MAINTENANCE Final Result * DNA STOOL (04/16/2021) Scribed Stool DNA - Cologuard Negative Comment:see care everywhere Result [facility] Historical Provider HEALTH MAINTENANCE Final Result * MAMMOGRAPHY (06/11/2018) Mammogram Normal Result [facility] Historical Provider HEALTH MAINTENANCE Final Result from Last 3 Months or Most Recently Relevant to Health Maintenance Insurance [employer] ACCESS CHOICE [facility] ACCESS CHOICE Care Teams Risk Mgr Relationship Specialty Start Date End Date Maricruz Pina MD PCP - General Family Medicine 08/04/23 Carlee Laboy NP Nurse Practitioner Nurse Practitioner 04/10/22
--- OUTSIDE RECORDS SUMMARY | 2024-11-13 13:26 | XMS_ITS | Encounter Summary ---
Author Organization [facility] Healthcare Address [address] [place] [address] Care Team Providers Care Electric Meter Tester Helper Name Role Phone Kaushal Lemus MD Primary Care Provider +- [phone] Reason for Visit * Diagnostic Imaging (Routine) - Closed Specialty Diagnoses / Procedures Referred By Manuel england Referred To Contact Procedures Breast Imaging Diagnostic Outside Reference Nayely Vyas NP Phone: tel: fax: Referral ID Status Reason Start Date Expiration Date Visits Re quested Visits Authorized [id number] Closed 06/03/2022 07/03/2023 1 1 Encounter Details Date Type Department Care Team (Late st Contact Info) Description 06/27/2013 Hospital Encounter [facility] [address] [place] [address] Social History Tobacco Use Types Packs/Day Years [...] on file Legal Sex Female 5:30 PM VENEER SPLICER Gender Identity Female 06/12/2021 10:25 AM VENEER SPLICER Sexual Orientation Straight 06/12/2021 10 :25 AM VENEER SPLICER 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 Never 06/26/2024 1:11 PM VENEER SPLICER Gal Bethea MA Q2: How many drinks [...] DIAGNOSTIC OUTSIDE REFERENCE Routine 06/27/2013 12:00 AM VENEER SPLICER documented in this encounter Results * Breast Imaging Diagnostic Outside Reference (06/27/2013 12:00 AM VENEER SPLICER) Impressions [facility] - 06/03/2022 9:22 AM VENEER SPLICER These images are for Reference purposes only and have not been reviewed by [facility] Radiology. There will be no report generated by a [facility] Radiologist. Narrative [facility] - 06/03/2022 9:22 AM VENEER SPLICER EXAMINATION: Images For Reference Purposes Only us Nayely Vyas FRONT MAKER LOCKSTITCH IMG MAMMO PROCEDURES Fin al Result [facility] documented in this encounter Visit Diagnoses Not on filedocumented in this encounter Care Teams Electric Meter Tester Helper Relationship Specialty Start Date End Date Kaushal Lemus MD PCP - General 09/17/11 04/22/14 documented as of this encounter
--- OUTSIDE RECORDS SUMMARY | 2024-11-13 13:26 | XMS_ITS | Encounter Summary ---
Author Organization [facility] Healthcare Address [address] [place] [address] Care Team Providers Care Light Industrial Name Role Phone Kaushal Lemus MD Primary Care Provider [phone] Kaushal Lemus MD Unavailable [phone] Reason for Visit * Diagnostic Imaging (Routine) - Closed Specialty Diagnoses / Procedures Referred By Manuel england Referred To Contact Procedures Breast Imaging Screening Outside Reference Nayely Vyas NP Phone: tel: fax: Referral ID Status Reason Start Date Expiration Date Visits Re quested Visits Authorized [id number] Closed 06/03/2022 07/03/2023 1 1 Encounter Details Date Type Department Care Team (Late st Contact Info) Description 12/03/2017 Hospital Encounter [facility] [address] [place] [id number] Social History Tobacco Use Types Packs/Day Years [...] on file Legal Sex Female 5:30 PM DIMMER BOARD OPERATOR Gender Identity Female 06/12/2021 10:25 AM DIMMER BOARD OPERATOR Sexual Orientation Straight 06/12/2021 10 :25 AM DIMMER BOARD OPERATOR Occupation Industry Job Start Date Job End [...] CDT) Impressions [facility] - 06/03/2022 7:50 AM DIMMER BOARD OPERATOR These images are for Reference purposes only and have not been reviewed by [facility] Radiology. There will be no report generated by a [facility] Radiologist. Narrative [facility] - 06/03/2022 7:50 AM DIMMER BOARD OPERATOR EXAMINATION: Images For Reference Purposes Only us Nayely Vyas ELECTRICAL TECH IMG MAMMO PROCEDURES Fin al Result [facility] documented in this encounter Visit Diagnoses Not on filedocumented in this encounter Care Teams Light Industrial Relationship Specialty Start Date End Date Kaushal Lemus MD PCP - General 10/10/15 11/12/19 Kaushal Lemus MD PCP - [place] Attributed PCP 10/05/17 1 06/09/21 documented as of this encounter
--- OUTSIDE RECORDS SUMMARY | 2024-11-13 13:26 | XMS_ITS | Encounter Summary ---
Author Organization [facility] Healthcare Address [address] [place] [address] Care Team Providers Care Mineral Industry Teacher Name Role Phone Kaushal Lemus MD Primary Care Provider +- [phone] Reason for Visit * Diagnostic Imaging (Routine) - Closed Specialty Diagnoses / Procedures Referred By Manuel england Referred To Contact Procedures Breast Imaging Screening Outside Reference Nayely Vyas NP Phone: tel: fax: Referral ID Status Reason Start Date Expiration Date Visits Re quested Visits Authorized [id number] Closed 06/03/2022 07/03/2023 1 1 Encounter Details Date Type Department Care Team (Late st Contact Info) Description 05/17/2013 Hospital Encounter [facility] [address] [place] [address] Social History Tobacco Use Types Packs/Day Years [...] on file Legal Sex Female 5:30 PM BILLET CUTTER Gender Identity Female 06/12/2021 10:25 AM BILLET CUTTER Sexual Orientation Straight 06/12/2021 10 :25 AM BILLET CUTTER 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 Never 06/26/2024 1:11 PM BILLET CUTTER Gal Bethea MA Q2: How many drinks [...] SCREENING OUTSIDE REFERENCE Routine 05/17/2013 12:00 AM BILLET CUTTER documented in this encounter Results * Breast Imaging Screening Outside Reference (05/17/2013 12:00 AM BILLET CUTTER) Impressions [facility] - 06/03/2022 9:23 AM BILLET CUTTER These images are for Reference purposes only and have not been reviewed by [facility] Radiology. There will be no report generated by a [facility] Radiologist. Narrative [facility] - 06/03/2022 9:23 AM BILLET CUTTER EXAMINATION: Images For Reference Purposes Only us Nayely Vyas APPLICATION ADMINISTRATOR IMG MAMMO PROCEDURES Fin al Result [facility] documented in this encounter Visit Diagnoses Not on filedocumented in this encounter Care Teams Mineral Industry Teacher Relationship Specialty Start Date End Date Kaushal Lemus MD PCP - General 09/17/11 04/22/14 documented as of this encounter
--- OUTSIDE RECORDS SUMMARY | 2024-11-13 13:26 | XMS_ITS | Clinical Summary ---
Author Organization [facility] Physician Office Building [address] [place] [id number] Care Team Providers Care Cooker Syrup Name Role Phone Carlee Laboy Liya TURF SALES PERSON Unavailable [phone] Maricruz Pina MD Primary Care Provider Allergies [...] 08/04/2023 Assessment & Plan (08/04/2023 6:56 PM ASSET PROTECTION AGENT): Mild. Noted on last eye exam which has been scanned in. Patient is following with Ophthalmology and Endocrinology. She will continue working with the specialists Hypertension associated with type 1 diabetes rachel litus 12/07/2022 Assessment & Plan (11/07/2024 2:31 PM CDT): Chronic problem, Controlled on olmesartan. No changes. Assessment & Plan (06/26/2024 1:49 PM ASSET PROTECTION AGENT): Chronic, stable Continue olmesartan Update GFR and microalbumin Assessment & Plan (08/04/2023 6:51 PM ASSET PROTECTION AGENT): Chronic diabetes and blood pressure. Blood pressure has been controlled. Continue her current blood pressure medications. 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 If she wants me to take over then we will need to see her every 6 months for monitoring of the hypertension Assessment & Plan (06/01/2023 12:55 PM ASSET PROTECTION AGENT): Chronic, well-controlled Continue olmesartan Update GFR and MA Assessment & Plan (12/07/2022 4:33 PM CDT): Chronic, well-controlled continue losartan Hypoglycemia due to type 1 diabetes mellitus Assessment & Plan (05/26/2022 2:07 PM ASSET PROTECTION AGENT): Prevention and treatment of hypoglycemia were discussed Rx for Baqsimi was sent. Hyperlipidemia due to type 1 diabetes mellitus 0 08/26/2020 Assessment & Plan (11/07/2024 2:31 PM CDT): Chronic problem. On statin therapy, no changes. Assessment & Plan (06/26/2024 1:48 PM ASSET PROTECTION AGENT): Chronic, stable. Continue statin therapy with rosuvastatin Update lipid profile Assessment & Plan (12/07/2023 11:45 AM CDT): Chronic, stable. Continue statin therapy with rosuvastatin Assessment & Plan (08/04/2023 6:51 PM ASSET PROTECTION AGENT): Chronic. Working with Endocrinology for type 1 diabetes. Tolerates rosuvastatin. Last LDL was near goal. Continue rosuvastatin Assessment & Plan (06/01/2023 12:54 PM ASSET PROTECTION AGENT): Chronic, well-controlled Continue statin therapy with rosuvastatin Update lipid profile Assessment & Plan (12/07/2022 4:32 PM CDT): I emphasized to him the importance of lowering LDL cholesterol in patient with diabetes due to increased cardiovascular risk She has agreed on resuming her Crestor Assessment & Plan (05/26/2022 2:06 PM ASSET PROTECTION AGENT): Chronic, well controlled Continue with statin therapy [...] injections. Assessment & Plan (06/26/2024 1:48 PM ASSET PROTECTION AGENT): Chronic, not at goal The patient to [...] diet Assessment & Plan (06/01/2023 12:54 PM ASSET PROTECTION AGENT): Hba1c was Lab Results Component Value Date [...] Ozempic Assessment & Plan (05/26/2022 2:06 PM ASSET PROTECTION AGENT): Hba1c was Lab Results Component Value Date [...] restarted Assessment & Plan (05/29/2021 4:38 PM ASSET PROTECTION AGENT): Hba1c was Lab Results Component Value Date [...] and will adjust. Will contact Bala Hilton canine service instructor trainer and order Dexcom. ROSE (generalized anxiety disorder) 05/12/2017 Assessment & Plan (08/04/2023 6:50 PM ASSET PROTECTION AGENT): Chronic. Controlled improving. Continue citalopram. Keep alprazolam [...] therapy. Assessment & Plan (05/12/2017 10:42 AM ASSET PROTECTION AGENT): Increase activity. Stick to prescribed nutrition plan, take prescriptions as instructed, call for any thought of suicide or homocidal ideation or anger outburst. Ensure 8hrs sleep if not getting this call to discuss so we can adjust medication Mild recurrent major depression 05/12/2017 Assessment & Plan (08/04/2023 6:51 PM ASSET PROTECTION AGENT): Chronic. Mood is improving with citalopram. Continue [...] control For emergency go to [facility] er for evaluation as they have counselor national insurance officer 28/12 See orders Assessment & Plan (05/12/2017 10:40 AM ASSET PROTECTION AGENT): Psychological condition is newly identified. Regular aerobic [...] 08/04/2023 Assessment & Plan (05/12/2017 10:44 AM ASSET PROTECTION AGENT): Patient very aware of her feelings. Sometimes [...] orders Assessment & Plan (05/12/2017 10:40 AM ASSET PROTECTION AGENT): New events. Xanax 0.25 mg TID prn Start Celexa 20 mg daily Refer to psychology. Dr. Woodruff BMI 29.0-29.9,adult 05/12/2017 08/04/19 24 Assessment & Plan (12/23/2018 8:46 AM CDT): BMI Follow-up includes: nutrition counseling, exercise counseling and education provided. Assessment & Plan (11/15/2018 5:11 PM CDT): BMI Follow-up includes: nutrition counseling, exercise counseling and education provided. Assessment & Plan (05/12/2017 10:39 AM ASSET PROTECTION AGENT): Body mass index is 26.94 kg/m . BMI Follow-up includes: nutrition counseling, exercise counseling and education provided. Cyst of skin 03/26/2014 08/04/2023 Overview (09/11/2016): Skin cyst Type 2 diabetes mellitus 10/21/201309/2016 Overview (09/11/2016): DMII WO CMP NT ST UN[facility] Type 1 diabetes mellitus without complication 10/22/19 14 08/04/2023 Overview (09/12/2016): [facility] Assessment & Plan (07/24/2019 3:06 PM ASSET PROTECTION AGENT): A1c 7.8. Agree that Bala Hilton with [...] well balance using plate method found at [employer].gov stay well hydrated with water and walk 5 days a week Fu endocrine See orders Assessment & Plan (04/11/2018 4:17 PM ASSET PROTECTION AGENT): A1c increased. Will try Tresiba samples to [...] PM CDT Office Visit [facility] [address] [address] Sheree Bernal PA Type 1 [...] on file Legal Sex Female 5:30 PM ASSET PROTECTION AGENT Gender Identity Female 06/12/2021 10:25 AM ASSET PROTECTION AGENT Sexual Orientation Straight 06/12/2021 10 :25 AM ASSET PROTECTION AGENT Occupation Industry Job Start Date Job End [...] GIRL KIMBE PRAVEENAY Shawna stringer MD Delivery Location:[facility] Last Filed Vital Signs Vital Sign Reading Time Taken Comments Blood Pressure 120/64 11/07/2024 1:09 PM CDT Pulse 72 11/07/2024 1:09 PM CDT Temperature 37.2 C (98.9 F) 05/06/2023 4:34 PM ASSET PROTECTION AGENT Respiratory Rate 20 06/26/2024 1:17 PM ASSET PROTECTION AGENT Oxygen Saturation 99% 05/06/2023 4:34 PM ASSET PROTECTION AGENT Inhaled Oxygen Concentration - - Weight 66 [...] hyperglycemia (HCC) EGFR Routine 06/26/2024 1:54 PM ASSET PROTECTION AGENT Type 1 diabetes mellitus with hyperglycemia (HCC) LIPID PANEL Routine 06/26/2024 1:54 PM ASSET PROTECTION AGENT Type 1 diabetes mellitus with hyperglycemia (HCC) ALBUMIN CREATININE RATIO, URINE Routine 06/26/2024 1:54 PM ASSET PROTECTION AGENT Type 1 diabetes mellitus with hyperglycemia (HCC) HEPATITIS PANEL, ACUTE Routine 08/04/2023 3:24 PM ASSET PROTECTION AGENT Transaminitis THYROID FUNCTION CASCADE Routine 08/04/2023 3:24 PM ASSET PROTECTION AGENT HM DIABETES EYE EXAM Routine 07/05/2023 10:36 AM ASSET PROTECTION AGENT HM PAP SMEAR WITH HPV Routine 01/19/2022 [...] POCT glucose (11/07/2024 1:12 PM CDT) Pathologist [facility] Glucose Blood, POC 265 Normal Fasting 70 - 100, Random <200 mg/dL Blood 11/07/2024 1:12 PM CDT Sheree VALDES POINT OF CARE TEST ORDE RABLES Final Result * eGFR (06/26/2024 1:54 PM ASSET PROTECTION AGENT) eGFR >90 >=60 mL/min/1. 73 m2 Comment: [...] last reviewed 2021. Blood 06/26/2024 1:54 PM ASSET PROTECTION AGENT 06/26/2024 5:30 PM ASSET PROTECTION AGENT us Adelita Shelton MD LAB BLOOD ORDERABLES Final Resul t Performing Organization Address [place] de Phone Number N[facility] [phone] [place] [address] * Albumin Creatinine Ratio, Urine (06/26/2024 1:54 PM ASSET PROTECTION AGENT) Albumin Ur <12.0 mg/L Comment: Interpretive Data No reference range established. Current interpretive data was last revised 2018. Creatinine Ur 233.9 mg/dL [facility] Comment: Interpretive Data No reference range established. Current interpretive data was last revised 2018. Albumin Creatinine Ratio, Ur <5 1 - 29 mg/g [facility] Urine 06/26/2024 1:54 PM ASSET PROTECTION AGENT 06/26/2024 4:31 PM ASSET PROTECTION AGENT us Adelita Shelton MD LAB URINE ORDERABLES Final Resul t Performing Organization Address [place] Co de Phone Number NARGIS [phone] [facility] [employer] [place] [address] * Lipid panel (06/26/2024 1:54 PM ASSET PROTECTION AGENT) Cholesterol 161 30 - 199 mg/dL Comment: [...] 2 [facility] Blood 06/26/2024 1:54 PM ASSET PROTECTION AGENT 06/26/2024 4:31 PM ASSET PROTECTION AGENT Adelita Shelton MD LAB BLOOD ORDERABLES Final Resul t Performing Organization Address City/[facility]/ZIP Co de Phone Number NARGIS [address] [place] [address] * Thyroid Function [place] (08/04/2023 3:24 PM ASSET PROTECTION AGENT) TSH 1.81 0.30 - 4.20 mcIUnit/mL [facility] Blood 08/04/2023 3:24 PM ASSET PROTECTION AGENT 08/04/2023 7:18 PM ASSET PROTECTION AGENT us Maricruz Pina MD LAB BLOOD ORDERABLES F inal Result Performing Organization Address City/[facility]/ZIP Co de Phone Number NARGIS [address] [employer] [place] [address] * Hepatitis panel, acute Blood (08/04/2023 3:24 PM ASSET PROTECTION AGENT) Hep A IgM Nonreactive Nonreactive [facility] Comment: Interpretive Data: If Hep A IgM Ab is reported as Equivocal, a new sample should be drawn in two weeks for testing. Current interpretive data was last revised on 19. Hep B core IgM Nonreactive Nonreactive [facility] Comment: Interpretive Data If HepB Core IgM Ab is reported as Equivocal, a new sample should be drawn in two weeks for testing. Current interpretive data was last revised on 19. Hep C Ab Nonreactive Nonreactive [facility] Comment: Interpretive Data Nonreactive: Antibodies to HCV [...] last revised on 2019. HepBsAg Nonreactive Nonreactive [facility] Blood 08/04/2023 3:24 PM ASSET PROTECTION AGENT 08/04/2023 7:32 PM ASSET PROTECTION AGENT Maricruz Pina MD LAB MICROBIOLOGY - GEN ERAL ORDERABLES Final Result [facility] [address] Department [place] [address] * (ABNORMAL) DIABETES EYE EXAM (07/05/2023 10:36 AM ASSET PROTECTION AGENT) Historical Provider HEALTH MAINTENANCE Final Result * [...] Most Recently Relevant to Health Maintenance Insurance [employer] ACCESS CHOICE [employer] ACCESS CHOICE Care Teams Cooker Syrup Relationship Specialty Start Date End Date Maricruz Pina MD PCP - General Family Medicine 08/04/23 Carlee Laboy NP Nurse Practitioner Nurse Practitioner 04/10/22
--- OUTSIDE RECORDS SUMMARY | 2024-11-13 13:26 | XMS_ITS | Encounter Summary ---
Author Organization [facility] Healthcare Address [address] [place] [address] Care Team Providers Care Lease Buyer Name Role Phone Kaushal Lemus MD Primary Care Provider +- [phone] Reason for Visit * Diagnostic Imaging (Routine) - Closed Specialty Diagnoses / Procedures Referred By Manuel england Referred To Contact Diagnoses Mass of right breast, unspecified quadrant Procedures Breast Imaging US Outside Reference Nayely Vyas NP Phone: tel: fax: Referral ID Status Reason Start Date Expiration Date Visits Re quested Visits Authorized [id number] Closed 06/03/2022 07/03/2023 1 1 Encounter Details Date Type Department Care Team (Late st Contact Info) Description 07/31/2014 Hospital Encounter [facility] [address] [place] [address] Social History Tobacco Use Types Packs/Day Years [...] on file Legal Sex Female 5:30 PM DAMAGE INSIDE ADJUSTER Gender Identity Female 06/12/2021 10:25 AM DAMAGE INSIDE ADJUSTER Sexual Orientation Straight 06/12/2021 10 :25 AM DAMAGE INSIDE ADJUSTER 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 Never 06/26/2024 1:11 PM DAMAGE INSIDE ADJUSTER Gal Bethea MA documented as of this encounter Plan of Treatment Not on file documented as of this encounter Procedures Procedure Name Priority Date/Time Associated Diagnosis Comments BREAST IMAGING US OUTSIDE REFERENCE Routine 07/31/2014 12:00 AM DAMAGE INSIDE ADJUSTER Mass of right breast, unspecified quadrant documented in this encounter Results * Breast Imaging US Outside Reference (07/31/2014 12:00 AM DAMAGE INSIDE ADJUSTER) Impressions [facility] - 06/03/2022 9:21 AM DAMAGE INSIDE ADJUSTER These images are for Reference purposes only and have not been reviewed by [facility] Radiology. There will be no report generated by a [facility] Radiologist. Narrative [facility] - 06/03/2022 9:21 AM DAMAGE INSIDE ADJUSTER EXAMINATION: Images For Reference Purposes Only us Nayely Vyas EXTENSION SERVICE AGENT IMG MAMMO PROCEDURES Fin al Result [facility] documented in this encounter Visit Diagnoses Not on filedocumented in this encounter Care Teams Lease Buyer Relationship Specialty Start Date End Date Kaushal Lemus MD PCP - General 04/23/14 07/24/15 documented as of this encounter
--- OUTSIDE RECORDS SUMMARY | 2024-11-13 13:26 | XMS_ITS | Data Portability ---
Author Organization [facility] Address [address] [place] [place] [address] [place] [address] Care Team Providers Care Registered Dietician Name Role Phone ERIC ROGERS Primary Care Provider Assessment Encounter Date Assessment Date Assessment LastModified by Organization Details LastModified Time 01/17/2022 01/17/2022 Annual gynecological exam performed. Patient will come back in a year unless there are new symptoms. Not available 01/17/2022 12:03:38 08/19/2023 08/19/2023 Annual gynecological exam performed. Patient will come back in a year unless there are new symptoms. [email or web address] Not available 08/19/2023 17:43:42 09/01/2024 09/01/2024 Annual gynecological exam performed. Patient will come back in a year unless there are new symptoms. [email or web address] Not available 09/01/2024 09:21:59 Plan of Treatment Reminders Order Date Submit Date Provider Last Modified By Organization Details Last Modified Time Details Appointments None recorded. Lab beta-HCG, quantitati ve, serum or plasma 2024 025 [facility] Outpatient Registration Lab/Ekg, [address], [place], [address], 5 11:32:50 test, urine 2024 025 sarah [place], [address], [address], [place], [address], 5 11:37:51 pap, IG + HR HPV - HPV regardless but if HPV is positive need subtyping 16,18/45 2024 025 [facility] (Lab), [address], [place], [address], 5 18:11:45 Referral None recorded. Procedures None recorded. Surgeries None recorded. Imaging MAMMO, diagnostic , digital, bilateral - bilateral breast lumps, upper outer quadrants 2024 025 [facility], [address], [place], [address], 5 11:05:09 US, breast, bilateral, complete 2024 025 [email or web address] [facility], [address], [address], [place], [address], 5 11:11:36 MAMMO, screening, bilateral 2023 024 [email or web address] [facility], [address], [place], [address], 4 12:05:26 Medication Orders Keflex 500 mg capsule 2022 023 [id number], [address], [place], [id number], 4 17:44:37 Patient TargetsNo targets recorded. 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 Not Available [facility] Infectious Disease [address], [place], [address], 01/23/2022 12:03:18 08/19/19 24 08/19/2023 IMAGE GUIDE D PAP AND HPV REGAR DLESS image guided Pap, HPV regardless of Pap result SEE RESULT S BELOW CASE REPOR T: Cytol ogy Gynec ologi cathy Repor t Case: [id number] Autho rilarry g Provi jose m: Dustin Chi Colle cted: 08/18 1715 SURVEILLANCE OPERATOR Order ing Locat ion: [place] Patho logy Recei christopher: 08/19 0552 First Scree n: Suad Caraballo , [place] Patho logis t: Elizabeth Davies MD Speci men: Screjay brinkg Pap - Image d, Cervi x STATE MENT OF ADEQU ACY: Satis facto ry for evalu ation Trans forma tion zone compo nent prese nt FINAL DIAGN OSIS: Negat maribel for Intra epith elial Lesio n or Leonard daniels (NIL) . Infla mmato ry cell abernathy [...] tigat ion is recom taisha d, as martin gamez nted. Not Available [facility] (Lab) [address], [place], [address], 08/25/2023 12:26:37 09/02/19 25 09/01/2024 IMAGE GUIDE [...] First Scree n: Ladi Babin Speci men: Siobhan brinkg Pap - Image d, Cervi x STATE MENT OF ADEQU ACY: Satis facto ry for evalu ation Trans forma tion zone compo nent prese nt ----- ----- ----- ----- ----- ----- ----- ----- ----- ----- ----- ----- ----- ----- ----- ----- ----- ---- FINAL DIAGN OSIS: Negat maribel for Intra epith elial Cindy villeda or Leonard daniels (NIL) . Elect kimberley davis by Ladi Babin [...] as clini kinga gamez nted. Not Available [facility] (Lab) [address], [place], [address], 09/06/2024 18:11:45 11/11/19 25 11/10/2024 pregn rozina test, urine HCG positi ve Not Available [place] [address], [place], [address], 11/10/2024 11:37:34 03/31/20 22 03/30/2022 MAMMO , scree manuela, bilat eral No observ ation record ed. [email or web address] [facility] [address], [place], [address], 04/02/2022 09:22:39 10/25/03/30/2022 MAMMO , scree manuela, bilat eral No observ ation record ed. [email or web address] [facility] [address], [place], [address], 04/02/2022 09:33:57 04/02/2003/30/2022 MAMMO , scree manuela, bilat eral No observ ation record ed. [email or web address] [facility] [address], [place], [address], 04/09/2022 13:14:46 04/03/2004/03/2022 US, raad t, unila teral No observ ation record ed. [email or web address] [facility] [address], [place], [address], 04/09/2022 16:07:59 06/03/2003/30/2022 MAMMO , scree manuela, bilat eral No observ ation record ed. [address] [facility] [address], [place], [address], 06/18/2022 10:09:40 12/06/19 24 12/06/2023 MAMMO , scree manuela, bilat eral No observ ation record ed. [facility] [address], [place], [address], 12/17/2023 11:31:01 12/07/19 24 12/06/2023 MAMMO , scree manuela, bilat eral No observ ation record ed. [facility] [address], [place], [address], 12/17/2023 11:31:01 09/26/19 25 09/25/2024 MAMMO , diagn ostic , digit al, bilat eral No observ ation record ed. [facility] [address], [place], [address], 09/25/2024 13:10:24 Result Notes None recorded. Problems Name Problem SNOMED Code Status Onset Date Resolution Date Notes Provider Name and Address Organization Details Recorded Time Urinary tract infectio us disease 28222498 Completed 201301/11/2021 Urinary Tract Infectio n;Record ed Elsewher e: No Locat ion: [facility] S ource: E[facility] [employer] pietro: N Frank ce ID: 0001 Alfa lable Time: 05:45:00 PM Dorie Cat [facility], [facility] 12:30:31 Atypical squamous cells of undeterm ined signific ance on cervical Papanico laou smear [id number] Completed 201601/11/2021 Atyp squam cell of undet signfc cyto smr crvx (ASC-US) ;Recorde d Elsewher e: No Locat ion: [facility] N Frank ce ID: 0001 Alfa lable Time: 09:30:00 AM Dorie Cat [facility] 1 12:29:34 Surveill ance of contrace ption Completed 201501/11/2021 Encounte r for surveill ance of contrace ptives, unspecif ied;Logan rded Elsewher e: No [facility] [employer] pietro: N Frank ce ID: 0001 Alfa lable Time: 08:30:00 AM Dorie Cat [facility] 12:30:27 Blood leukocyt e number above referenc e range [id number] Completed 201601/11/2021 Elevated white blood cell count, unspecif ied;Logan rded Elsewher e: No Locat ion: [facility] S ource: [facility] [employer] pietro: N Frank ce ID: 0001 Alfa lable Time: 08:30:00 AM Dorie Cat [facility] 1 12:30:05 Breast lump [id number] Completed 201301/09/2021 Breast Lump Or Mass;Rec orded Elsewher e: No Locat ion: [facility] S ource: [facility] [employer] pietro: N Bellati ce ID: 0001 Alfa lable Time: 05:45:00 PM Carmel Hernandez [facility], [facility] 1 18:05:22 Screenin g for malignan t neoplasm of cervix Completed 201301/11/2021 Screenin g for malignan t neoplasm s of the cervix;R ecorded Elsewher e: No Locat ion: [facility] S ource: [facility]: N Bellati ce ID: 0001 Alfa lable Time: 05:45:00 PM Dorie Maliktz [facility], [facility] 1 12:30:18 Pregnanc y test negative [id number] Completed 201501/11/2021 Encounte r for pregnanc y test, result negative ;Recorde d Elsewher e: No Locat ion: [facility] S ource: [facility] [employer] pietro: N Bellati ce ID: 0001 Alfa lable Time: 10:15:00 AM Dorie Maliktz regina, [facility] 1 12:30:17 Finding of regulari ty of menstrua l cycle Completed 201601/11/2021 Irregula r bleeding ;Recorde d Elsewher e: No Locat ion: [facility] S ource: [facility] [employer] piet[employer]: N Practi ce ID: 0001 Alfa lable Time: 08:30:00 AM Dorie [facility] 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 1 12:30:23 Oral contrace ptive prescrib ed Completed 201301/11/2021 Counseli ng and prescrip tion for oral contrace ptive;Re corded Elsewher e: No [facility]: [facility] [employer] p[employer]ro: N Practi ce ID: 0001 Alfa lable Time: 02:15:00 PM Dorie Cat [facility] 1 12:30:13 Insertio n of intraute rine contrace ptive device Completed 201601/11/2021 Encounte r for insertio n of intraute rine contrace ptive device;R ecorded Elsewher e: No Locat ion: [facility] S ource: [facility] [employer] pietro: N Practi ce ID: 0001 Alfa lable Time: 02:00:00 PM Dorie Cat [facility] 1 12:30:06 At increase d risk of sexually transmit sergio infectio n [id number] Completed 201101/09/2021 Contact with or exposure to venereal diseases ;Recorde d Elsewher e: No Locat ion: [facility] S ource: [facility] [employer] pietro: N Bellati ce ID: 0001 Alfa lable Time: 06:00:00 PM Carmel Hernandez [facility] 1 18:05:19 Syphilis test finding [id number] Completed 201601/11/2021 Encntr screen for infectio ns w sexl mode of transmis s;Record ed Elsewher e: No Locat ion: [facility] S ource: [facility] [employer] pietro: N Practi ce ID: 0001 Alfa lable Time: 08:30:00 AM Dorie Cat [facility] 1 12:30:29 Clinical finding Completed 201601/11/2021 Presence of (intraut erine) contrace ptive device;R ecorded Elsewher e: No Locat ion: [facility] S ource: [facility] [employer] pietro: N Bellati ce ID: 0001 Alfa lable Time: 02:00:00 PM Dorie tapia, [facility] 1 12:29:36 Vaginiti s and vulvovag initis Completed 201401/11/2021 Vaginiti s and vulvovag initis, unspecif ied;Logan rded Elsewher e: No Locat ion: [facility] S ource: [facility] [employer] piet[employer]: N Bellati ce ID: 0001 Alfa lable Time: 10:15:00 AM Dorie Cat [facility], [facility] 1 12:30:33 Leukocyt osis [id number] Completed 201301/11/2021 LEUKOCYT OSIS NOS;Logan rded Elsewher e: No Locat ion: [facility] S ource: E[facility] [employer] piet[employer]: N Bellati ce ID: 0001 Alfa lable Time: 05:45:00 PM Dorie Cat [facility], [facility] 12:30:08 Speciali zed medical examinat ion Completed 201101/11/2021 Gynecolo gical Examinat ion;Logan rded Elsewher e: No Locat ion: [facility] S ource: E[facility] [employer] pietro: N Practi ce ID: 0001 Alfa lable Time: 06:00:00 PM Dorie tapia [facility] 12:30:25 Leukorrh ea [id number] Completed 201401/11/2021 Leukorrh ea, not specifie d as infectiv e;Record ed Elsewher e: No Locat ion: [facility] S ource: E[facility] [employer] pietro: N Bellati ce ID: 0001 Alfa lable Time: 10:15:00 AM Dorie tapia, [facility] 1 12:30:11 Disease [id number] Completed 201601/11/2021 Other specifie d conditio ns associat ed with female genital organs and menstrua l cycle;Re corded Elsewher e: No Locat ion: [facility] S ource: E[facility] [employer] p[employer]: N Bellati ce ID: 0001 Alfa lable Time: 08:30:00 AM Dorie Cat [facility], [facility] 1 12:29:41 Hyperten sive disorder [id number] Completed 201501/11/2021 Essentia l (primary ) hyperten jadiel;Rec orded Elsewher e: No Locat ion: [facility] S ource: EHR [employer] pietro: N Frank ce ID: 0001 Alfa lable Time: 10:15:00 AM Dorie Cat [facility], [facility] 12:30:01 Finding of urine substanc e level Completed 201501/11/2021 Proteinu briana, unspecif ied;Logan rded Elsewher e: No Locat ion: [facility] S ource: [facility] [employer] pietro: N Bellati ce ID: 0001 Alfa lable Time: 08:30:00 AM Dorie Cat [facility], [facility] 12:29:45 Contrace ptive sheath status [id number] Completed 201601/11/2021 IUD follow up;Recor ded Elsewher e: No Locat ion: [facility] S ource: E[facility] [employer] pietro: N Bellati ce ID: 0001 Alfa lable Time: 05:00:00 PM Dorie tapia, [facility] 12:29:38 Screenin g for malignan t neoplasm of rectum Completed 201601/11/2021 Encounte r for screenin g for malignan t neoplasm of rectum;R ecorded Elsewher e: No Locat ion: [facility] S ource: EHR [employer] pietro: N Practi ce ID: 0001 Alfa lable Time: 01:00:00 PM Dorie Maliktz regina [facility] 1 12:30:20 Adult health examinat ion Completed 201401/09/2021 ROUTINE MEDICAL EXAM;Rec orded Elsewher e: No Locat ion: [facility] S ource: E[facility] [employer] pietro: N Practi ce ID: 0001 Alfa lable Time: 11:00:00 AM Carmel Hernandez [facility] 1 18:05:05 Educatio n Completed 201601/09/2021 Encounte r for other general counseli ng and advice on contrace ption;Re corded Elsewher e: No Locat ion: [facility] S ource: E[facility] [employer] pietro: N Bellati ce ID: 0001 Alfa lable Time: 05:45:00 PM Carmel tapia [facility] 1 18:05:25 Human papillom avirus deoxyrib onucleic acid detected , high risk on cervical specimen [id number] Completed 201501/11/2021 Cervical high risk HPV DNA test positive ;Recorde d Elsewher e: No Locat ion: [facility] S ource: E[facility] [employer] pietro: N Practi ce ID: 0001 Alfa lable Time: 10:15:00 AM Dorie tapia [facility] 1 12:29:48 Dysfunct ional uterine bleeding Completed 201101/11/2021 Other disorder s of menstrua tion and other abnormal bleeding from female genital tract;Re corded Elsewher e: No Locat ion: [facility] S ource: EHR [employer] pietro: N Practi ce ID: 0001 Alfa lable Time: 06:00:00 PM Dorie Maliktz [facility] 1 12:29:40 Infectio n screenin g Completed 201501/11/2021 Encounte r for screenin g for oth infec/pa rastc diseases ;Recorde d Elsewher e: No Locat ion: [facility] S ource: EHR [employer] pietro: N Practi ce ID: 0001 Alfa lable Time: 10:15:00 AM Dorie tapia [facility] 1 12:30:03 Pelvic and perineal pain [id number] Completed 201601/11/2021 Pelvic and perineal pain;Rec orded Elsewher e: No Locat ion: [facility] S ource: EHR [employer] pietro: N Practi ce ID: 0001 Alfa lable Time: 04:30:00 PM Dorie tapia [facility] 1 12:30:15 Ill-defi morena intestin al infectio n Completed 201101/11/2021 No Show Fee;Prac valencia ID: 0001 Dorie tapia [facility] 1 12:29:59 Problem Notes None recorded. Procedures Surgical History Date Name Laterality Status Provider Name and Address Organization Details Recorded Time 09/26/19 25 Date of Last Mammogram completed Michelle Arita [facility] 11/10/2024 11:05:20 08/19/19 24 Date of Last Pap Smear completed Chelo Cruz [facility] 09/01/2024 09:23:44 01/18/20 22 Wart Topical Procedure completed Carlee Laboy, MESHA- [address], [place], [address], [facility] 01/17/2022 13:34:08 04/16/20 21 Date of Last Colonoscopy completed Dorie Cat [facility] 01/17/2022 12:06:08 02/16/20 21 Wart Topical Procedure completed Carlee Laboy [facility] [address], [place], [address], [facility] 02/15/2021 12:27:21 02/02/20 21 Wart Topical Procedure completed Carlee Laboy [facility] [address], [place], [address], [facility] 02/01/2021 09:32:35 01/18/20 21 Wart Topical Procedure completed [place] [address], [place], [address], [facility] 01/17/2021 12:08:54 11/07/19 17 Colposcopy completed [facility] 01/14/2021 14:40:25 11/07/19 17 Colposcopy completed [facility] 01/14/2021 14:47:46 08/16/19 11 section completed [facility] 01/14/2021 14:52:14 11/10/19 07 section completed [facility] 01/14/2021 14:52:07 12/30/19 03 section completed [facility] 01/14/2021 14:52:00 Imaging Results None recorded. Procedure Notes None recorded. Medical Equipment None Reported. Allergies Allergen ID Allergen Name Allergen Category Reaction Reaction Severity Criticality Documentation Date Start Date Code Code System Note Provider Name and Address Organization Details Recorded Time Substance with sulfonami de structure and antibacte rial mechanism of action (substanc e) medicatio n itching mild low 07/11/2022 22020 8004 SNOMED Carlee heaton [facility] [address], [place], [address], [facility] 3 11:39:59 9687 codeine medicatio n Not available Not available Not available 05/24/2020 2670 RxNorm Comme nt: Locat ion: Toya forbes; Not Available [facility] 0 14:14:38 9688 fluconazo le medicatio n Not available Not available Not available 05/24/2020 4450 RxNorm Comme nt: Locat ion: Toya Sims r Cau sativ e Agent : Diflu can; Not Available [facility] 0 14:14:38 9689 Product containin g penicilli n (product) medicatio n Not available Not available Not available 05/24/2020 89713 8001 SNOMED Comme nt: Locat ion: Toya forbes; Not Available [facility] 0 14:14:38 Medications Name Sig Start Date [...] Not Available Not Available Not Available Necon (28) 1 mg-35 mcg tablet TAKE 1 TABLET BY ORAL ROUTE EVERY DAY 08/20 completed Prescrib ed Elsewher e: No Locat ion: [facility] odify By: abel hawk DateTime : 08/07/19 16 09:53:07 AM Not Available Not Available Not Available citalopra m 10 mg/5 mL oral solution take 10 millilit er by oral route every day 01/09 completed Prescrib ed Elsewher e: Yes Loca tion: [facility] odify By: hernandez hawk DateTime : 08/24/19 19 10:45:00 AM Not Available Not Available Not Available Zithromax Z-Mauricio 250 mg tablet take 2 tablet by oral route every day for 1 day then 1 tablet (250 mg) by oral route once daily for 4 days 02/12 completed Prescrib ed Elsewher e: No Locat ion: [facility] odify By: abel hawk DateTime : 02/09/20 15 10:15:00 AM Not Available Not Available Not Available Diflucan 150 mg tablet take 1 tablet by oral route once 02/08 completed Prescrib ed Elsewher e: No Locat ion: [facility] odify By: dolores riojas DateTime : 11/20/19 15 11:16:34 AM Not Available Not Available Not Available Macrobid 100 mg capsule take 1 capsule by oral route every 12 hours for 10 days with food 08/28 completed Prescrib ed Elsewher e: No Locat ion: [facility] odify By: abel hawk DateTime : 08/20/19 [...] Elsewher e: No Locat ion: [facility] odify By: thelma tz Xavi ntaylin DateTime : 11/09/19 18 12:30:00 PM [...] Elsewher e: No Locat ion: [facility] odify By: [email or web address] Ranjan forbes DateTime : 12/13/19 16 08:30:00 AM Not Available Not Available Not Available Terazol 7 0.4 % vaginal cream insert 1 applicat orful by vaginal route every day for 7 days at bedtime 11/14 completed Prescrib ed Elsewher e: No Locat ion: [facility] odify By: thelma Hurley nter DateTime : 11/09/19 18 12:30:00 PM Not Available Not Available Not Available Autoject 2 subcutane ous insulin pen 08/19 completed Prescrib ed Elsewher e: Yes Loca tion: [facility] odify By: sharonda Encounte r DateTime : 10/13/19 12 10:16:19 PM Not Available Not Available Not Available Bactrim DS 800 mg-160 mg tablet take 1 tablet by oral route every 12 hours 10/27 completed Prescrib ed Elsewher e: No Locat ion: [facility] odify By: sharonda Encounte r DateTime : [...] Elsewher e: Yes Loca tion: [facility] odify By: sharonda Encounte r DateTime : [...] Elsewher e: No Locat ion: [facility] odify By: thelma Hurley nter DateTime : [...] ash Ruby e: No Locat ion: [facility] odify By: smcaley Encounte r DateTime : [...] Updated DateTime 07/11/2022 172.72 cm 26.8 kg/m2 05943.26 g 114 mm[Hg] 77 mm[Hg] Jeanette George [facility] 3 11:31:16 Date Recorded Body height Body mass index (BMI) Body weight Systolic blood pressure Diastolic blood pressure Provider Name and Address Organization Details Last Updated DateTime 08/19/2023 172.72 cm 26.9 kg/m2 00214.41 g 134 mm[Hg] 81 mm[Hg] Swathi Saab [facility] 4 17:44:11 Date Recorded Body height Body mass index (BMI) Body weight Systolic blood pressure Diastolic blood pressure Provider Name and Address Organization Details Last Updated DateTime 09/01/2024 172.72 cm 23 kg/m2 20081.45 g 124 mm[Hg] 76 mm[Hg] Chelo Cruz [facility] 5 11:49:45 Date Recorded Body height Body mass index (BMI) Body weight Systolic blood pressure Diastolic blood pressure Provider Name and Address Organization Details Last Updated DateTime 11/10/2024 172.72 cm 22 kg/m2 49758.89 g 127 mm[Hg] 81 mm[Hg] Michelle Trivediney [facility] 5 11:04:06 Date Recorded Systolic blood pressure Diastolic blood pressure Provider Name and Address Organization Details Last Updated DateTime 01/17/2022 122 mm[Hg] 80 mm[Hg] Carlee Laboy [facility]- [address], [place], [address], [facility] 01/17/2022 12:16:28 Date Recorded Body height Body mass index (BMI) Body weight Provider Name and Address Organization Details Last Updated DateTime 01/17/2022 172.72 cm 29.6 kg/m2 21279.51 g Dorie Cat [facility] 01/17/2022 12:03:59 Social History Question Answer Notes LastModified by Organizat ion Details LastModified Time Tobacco Smoking Status Never Smoker ALMA BLEADALI [facility] 07/11/2022 11:26:24 If You Are , What Was Your Level Of Alcohol Consumption Prior To ? None Information not available 07/11/2022 Are You Blind Or Do You Have Difficulty Seeing? No [email or web address] Information n ot available 01/17/2021 What Is Your Level Of Caffeine Consumption? Occasional Information not available 01/17/2021 How Much Tobacco Do You Chew? None [email or web address] Information not available 01/17/2022 In The 14 Days Before Symptom Onset, Have You Had Close Contact With A Laboratory-confirm ed COVID-19 While That Case Was Ill? No Information n ot available 01/17/2021 In The 14 Days Before Symptom Onset, Have You Had Close Contact With A Person Who Is Under Investigation For COVID-19 While That Person Was Ill? No [email or web address] Information not available 01/17/2021 Have You Been To An Area Known To Be High Risk For COVID-19? No [email or web address] Information not available 01/17/2021 Are You Deaf Or Do You Have Serious Difficulty Hearing? No Information not available 01/17/2021 What Type Of Diet Are You Following? DIABETIC Information n ot available 02/01/2021 What Is The Highest Grade Or Level Of School You Have Completed Or The Highest Degree You Have Received? [id number] [email or web address] Information not available 01/17/2022 Have You Ever Been Counseled For Unhealthy Alcohol Use? No Information not available 07/11/2022 Do You Use Your Seat Belt Or Car Seat Routinely? Yes [email or web address] Information not available 01/17/2021 Do You Have Smoke And Carbon Monoxide Detectors In Your Home? Yes [email or web address] Information not available 01/17/2021 How Much Tobacco Do You Smoke? No [email or web address] Information not available 01/17/2022 Do You Use Sunscreen Routinely? Yes [email or web address] Information not available 01/17/2021 Has Tobacco Cessation Counseling Been Provided? No Information not available 07/11/2022 Have You Used IV Drugs? No [email or web address] Information not available 01/17/2022 Do You Have Difficulty Walking Or Climbing Stairs? No Information not available 07/11/2022 Sex: Female Functional Status Question Answer Note LastModified by Organizat ion Details LastModified Time Do you use any illicit or recreational drugs? No [email or web address] Information not available 01/17/2021 Do you or have you ever used any other forms of tobacco or nicotine? No Information not available 07/11/2022 What is your level of alcohol consumption? Occasional [email or web address] Information not available 01/17/2021 Are you able to walk? YESWOREST [email or web address] Information not available 01/17/2021 Are you able to care for yourself? Yes Information n ot available 07/11/2022 Do you have difficulty dressing or bathing? No Information not available 07/11/2022 What is your exercise level? Occasional [email or web address] Information not available 02/01/2021 Mental Status Question Answer Note LastModified by Organization D etails LastModified Time Do you feel stressed (tense, restless, nervous, or anxious, or unable to sleep at night)? [id number] [email or web address] Information not available 01/17/2021 Family History Relationship Description Onset Age of this Age Resolved Age Notes LastModified by Organization Details LastModified Time Mother Malignant neoplasm of ovary [email or web address] Not available 2020 13:13:59 Mother Malignant tumor of cervix [email or web address] Not available 2020 13:14:15 Paternal Grandmother Malignant tumor of breast [email or web address] Not available 2020 13:14:30 Maternal Grandmother Malignant tumor of breast Not available 01/14 15:24:19 Medical History Condition [...] SNOMED-CT Code Diagnosis ICD10 Code Diagnosis Note [id number] Brett Jones MD [place] [address] [address] 01/09/2021 17:44:54 01/12/2021 15:25:41 Condyloma acuminata of vulva 462181503 A63.0 Patient is 45-year-ol d female with vulvar condyloma. We spent over 35 minutes face-to-fa ce. We discussed these findings. We discussed treatment. We discussed the etiology, natural history, treatment, incidence of vulvar condyloma. This is a complex topic. [id number] SHERYL Mendoza [place] [address] [address] 11/10/2024 10:49:51 11/10/2024 11:50:32 test positive [id number] Z32.01 urine test done today with faint [...] plan of care. Contracept ion care management [id number] Z30.9 [id number] Carlee Raulitosudarshan [facility] [address] [address] 01/11/2021 11:54:08 01/12/2021 16:25:34 Gynecologic examination 56165561 Z01.419 Suggested Calcium with Vitamin D 1200-1500m g daily. Patient advised to get an annual flu shot in the fall and she could obtain at [facility] or [facility] clinic. Also to obtain TDap vaccinatio n [...] if required. Derm referral was also discussed. [id number] Annmarie Pastrana CNM [place] [address] [address] 01/17/2021 09:31:25 01/17/2021 12:23:04 Condyloma acuminatum of the anogenital region [id number] A63.0 [id number] Carlee Laboy [facility] [address],[place] [address] 02/01/2021 09:04:15 02/01/2021 09:38:49 Anogenital human papillomavirus infection [id number] A63.0 TCA treatment completed today #2WIll return in 2wks for additional TCA applicatio n. [id number] Carlee Laboy [facility] [address],[place] [address] 02/15/2021 12:02:12 02/15/2021 12:29:46 Genital warts [id number] A63.0 TCA treatment completed todaySee procedure notes.Will call PRN for TCA treatments after today. [id number] Carlee Laboy [place] [address],[place] [address] 01/17/2022 11:27:33 01/19/2022 16:14:30 Gynecologic examination [id number] Z01.419 Z11.51 Suggested Calcium with Vitamin D 1200-1500m g daily. Patient advised to get an annual flu shot in the fall and she could obtain at [facility] or [facility] care clinic. Also to obtain TDap vaccinatio [...] was also discussed. Condyloma acuminata of vulva [id number] A63.0 TCA Txment done todayRTO x 2wks if need another txment [id number] [facility] [address] [address] 07/11/2022 11:25:03 07/13/2022 11:46:31 Folliculitis 64116884 L73.9 Folliculit is seen on exam lower [...] counseling and review of plan of care. [id number] [facility] [address],[place] [address] 08/19/2023 17:35:29 08/24/2023 09:26:40 Gynecologic examination 77182945 Z01.419 Z11.51 Suggested Calcium with Vitamin D 1200-1500m g daily. Patient advised to get an annual flu shot in the fall and she could obtain at [facility] or [facility] take care clinic. Also to obtain TDap [...] na Routine Labs PCP Screening mammography [id number] Z12.31 [id number] Johanna SHERYL Sanz [place] [address] [address] 09/01/2024 11:42:22 09/04/2024 10:50:24 Gynecologic examination 80283669 Z01.419 WWEBC - Mirena IUD (inserted 02/17/2017 [...] All questions have been answered. Breast lump 38422636 N63 .0 bilateral diagnostic mammogram with u/s order given to pt Health Concerns Section Related Observation LastModified by Organization Detai ls LastModified Time None Recorded Concern Status LastModified by Organization Details LastModified Time None Recorded Advance Directives Directive None Recorded Payers Encounter Date Sequence Insurance Name Policy Number Policy Flores Covered Member ID Flores Member ID Guarantor Name 01/17/2022 1 [employer] [id number] 3 Jayleen Laguna [id number] Jayleen Laguna 07/11/2022 1 [employer] [id number] 3 Jayleen Laguna [id number] Jayleen Laguna 08/19/2023 1 [employer] [id number] 3 Jayleen Laguna [id number] Jayleen Laguna 09/01/2024 1 [place] [id number] 3 Jayleen Laguna [id number] Jayleen Laguna 11/10/2024 1 [employer] [id number] 3 Jayleen Laguna [id number] Jayleen Laguna Notes Date Note Type [...] to date on colonoscopy screening [facility] [address], [place], [address], [facility] 01/17/2022 13:34:57 3 text/html Here for vaginal bump that is tender.Appeared a couple days agoSoreMonogamousHx of condyloma (doesn't know if this is one of these lesions).No other sx's Neg pain of abd/pelvis/flankNeg urinary sx'sNeg GI sx'sNeg N/V/F/C/DNeg Vag d/c, odor, irritation, itching Carlee Laboy [facility] [address], [place], [address], [facility] 07/11/2022 11:48:05 4 text/html Annual GYNReported [...] colonoscopy SHERYL Hutchison- [address], [place], [address], [facility] 08/24/2023 09:12:05 5 text/html Annual GYNReported [...] 12/2023 SHERYL Mendoza [address], [place], [address], [facility] 09/04/2024 09:15:27 5 text/html 48yopresents for Mirena IUD removal/replacementcurre nt IUD inserted 02/17/2017she has not had IC since May, her partner also has a vasectomy SHERYL Mendoza [address], [place], [address], [facility] 11/10/2024 11:38:19 OBGyn Episode Ob Episode Information Episode Created Date Number of Fetuses Patient Bloodtype Patient rh Status Prepregnancy Weight lbs Domestic Partner Domestic Partner Phone Father Name Shuttle Threader Status 01/11/20 21 1 CLOSED Fetus Data First Name Last Name Admitted to NICU Weight (g) Sex Living Outcome Pediatric Complications Fetus ID Race Codes Race Delivery Type 3486.76 1704 F Full Term 89720 Repeat Morro Calculation Initial [place]ro Date Initial [...] Domestic Partner Domestic Partner Phone Father Name Shuttle Threader Status 01/11/20 21 1 CLOSED Fetus Data First Name Last Name Admitted to NICU Weight (g) Sex Living Outcome Pediatric Complications Fetus ID Race Codes Race Delivery Type 3458.63 9 F Full Term [id number] Primary Morro Calculation Initial [place] Date Initial [...] Domestic Partner Domestic Partner Phone Father Name Shuttle Threader Status 01/15/20 21 1 CLOSED Fetus Data First Name Last Name Admitted to NICU Weight (g) Sex Living Outcome Pediatric Complications Fetus ID Race Codes Race Delivery Type , Spontane ous 67288 Mor[place] Calculation Initial [place] Date Initial Exam [...] Domestic Partner Domestic Partner Phone Father Name Shuttle Threader Status 01/15/20 21 1 CLOSED Fetus Data First Name Last Name Admitted to NICU Weight (g) Sex Living Outcome Pediatric Complications Fetus ID Race Codes Race Delivery Type , Spontane ous 82753 Morro Calculation Initial [place] Date Initial Exam [...] Domestic Partner Domestic Partner Phone Father Name Shuttle Threader Status 01/11/20 21 1 CLOSED Fetus Data First Name Last Name Admitted to NICU Weight (g) Sex Living Outcome Pediatric Complications Fetus ID Race Codes Race Delivery Type 3345.24 1 F Full Term 23915 Repeat Morro Calculation Initial Morro Date Initial [...]
--- OUTSIDE RECORDS SUMMARY | 2024-11-13 13:26 | XMS_ITS | Encounter Summary ---
Author Organization [facility] Healthcare Address [address] [place] [address] Care Team Providers Care Covered Buckle Assembler Name Role Phone Kaushal Lemus MD Primary Care Provider +- [phone] Reason for Visit * Diagnostic Imaging (Routine) - Closed Specialty Diagnoses / Procedures Referred By Manuel england Referred To Contact Procedures Breast Imaging Diagnostic Outside Reference Nayely Vyas NP Phone: tel: fax: Referral ID Status Reason Start Date Expiration Date Visits Re quested Visits Authorized [id number] Closed 06/03/2022 07/03/2023 1 1 Encounter Details Date Type Department Care Team (Late st Contact Info) Description 07/31/2014 12:05 AM MEAT MOLDER Hospital Encounter [facility] [address] [place] [address] Social History Tobacco Use Types Packs/Day Years [...] on file Legal Sex Female 5:30 PM MEAT MOLDER Gender Identity Female 06/12/2021 10:25 AM MEAT MOLDER Sexual Orientation Straight 06/12/2021 10 :25 AM MEAT MOLDER 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 Never 06/26/2024 1:11 PM MEAT MOLDER Gal Bethea MA documented as of this encounter Plan of Treatment Not on file documented as of this encounter Procedures Procedure Name Priority Date/Time Associated Diagnosis Comments BREAST IMAGING MG DIAGNOSTIC OUTSIDE REFERENCE Routine 07/31/2014 12:05 AM MEAT MOLDER documented in this encounter Results * Breast Imaging Diagnostic Outside Reference (07/31/2014 12:05 AM MEAT MOLDER) Impressions RAD_MAMMO_[facility] - 06/03/2022 9:21 AM MEAT MOLDER These images are for Reference purposes only and have not been reviewed by [facility] Radiology. There will be no report generated by a [facility] Radiologist. Narrative [facility]_MAMMO[facility] - 06/03/2022 9:21 AM MEAT MOLDER EXAMINATION: Images For Reference Purposes Only us Nayely Vyas PERMASTONE MECHANIC IMG MAMMO PROCEDURES Fin al Result [facility] documented in this encounter Visit Diagnoses Not on filedocumented in this encounter Care Teams Covered Buckle Assembler Relationship Specialty Start Date End Date Kaushal Lemus MD PCP - General 04/23/14 07/24/15 documented as of this encounter
== END 2024-11-13 12:08 | disposition home or self-care (01) ==
PROVIDERS: PCP Nurse Practitioner; Visit Provider Nurse Practitioner
DX: Z32.01 Encounter for pregnancy test, result positive (principal)
CPT/HCPCS: 36415; 84702